=== PATIENT | female | born 1940 | race Caucasian/White ===

== ENCOUNTER 2019-05-08 06:12 | Inpatient (IN) | payer MEDICARE, OTHER, SELFPAY | END 2019-05-10 15:20 | disposition home health service (06) | DRG 190 | PROVIDERS: Admitting Provider Family Medicine; Emergency Provider Emergency Medicine; Family Provider Family Medicine; Visit Provider Internal Medicine | DX: J43.9 Emphysema, unspecified (principal); J96.21 Acute and chronic respiratory failure with hypoxia; R91.8 Other nonspecific abnormal finding of lung field; N18.2 Chronic kidney disease, stage 2 (mild); D64.9 Anemia, unspecified; Z87.891 Personal history of nicotine dependence; F32.9 Major depressive disorder, single episode, unspecified; Z99.81 Dependence on supplemental oxygen; I12.9 Hypertensive chronic kidney disease with stage 1 through stage 4 chronic kidney disease, or unspecified chronic kidney disease; E87.6 Hypokalemia; G89.29 Other chronic pain; M54.9 Dorsalgia, unspecified; F03.90 Unspecified dementia, unspecified severity, without behavioral disturbance, psychotic disturbance, mood disturbance, and anxiety ==

== ENCOUNTER 2019-05-13 08:20 | Day surgery (SDC) | payer MEDICARE, OTHER, SELFPAY | END 2019-05-13 13:32 | disposition home or self-care (01) | PROVIDERS: Family Provider Family Medicine; Visit Provider Internal Medicine Critical Care Medicine | DX: R91.8 Other nonspecific abnormal finding of lung field (principal); Z99.81 Dependence on supplemental oxygen; J43.9 Emphysema, unspecified; N18.2 Chronic kidney disease, stage 2 (mild); F03.90 Unspecified dementia, unspecified severity, without behavioral disturbance, psychotic disturbance, mood disturbance, and anxiety; Z82.49 Family history of ischemic heart disease and other diseases of the circulatory system; Z87.891 Personal history of nicotine dependence | CPT/HCPCS: 31624; 87070; 87102; 87116; 87205; 87206 ×2; 87278; 88112; 88173 ×3; 88305 ×5; 88341; 88342; 94660; J0171; J2001; J2405; J2704; J2710; J3010; J3490 ==

== ENCOUNTER 2019-07-05 09:42 | Day surgery (SDC) | payer MEDICARE, SELFPAY ==
[2019-07-05] VITALS (7 sets, daily range): BP systolic 108–133; BP diastolic 60–99; PULSE 82–95; RESP 15–187; TEMP 36.5–36.6; O2SAT 95–100; BMI 25.4
[2019-07-05] MEDS: sodium chloride 0.9% 1,000 ML 30 ML IV (10:25)
--- NOTE | 2019-07-05 10:37 | ANES.PREANE2 ---
Pre-Anesthetic Assessment Pre-Anesthetic Assessment: Height/Weight: Height 1.65 m Weight 69.4 kg Temp Pulse Resp BP Pulse Ox 97.7 F 82 187 H 127/73 96 07/05/19 10:10 07/05/19 10:10 07/05/19 10:10 07/05/19 10:10 07/05/19 10:10 Proposed Procedure: Operation Date: 07/05/19 12:00 Proposed Procedures p Navigational Bronchoscopy [id number]/R91.8(Not Applicable) - Bipmartín Bean MD Last intake: Intake Last Liquid Date 07/04/19 Last Liquid Time 17:00 Last Solid Date 07/04/19 Last Solid Time 17:00 Exam: Pre-Anes Outpt Exam: alert, oriented x 3, clear to auscultation bilaterally (wheezy) and regular rate & rhythm Airway: Submandibular: WNL Cervical ROM: WNL MP: 2 Dentition: Full History/ROS: No significant history except as noted Pulmonary: Pulmonary: COPD, MCKNIGHT and SOB CV/HEM: CV/HEM: HTN : : None reported Hepatic: Hepatic: None reported GI: GI: GERD Metabolic: Metabolic: None reported Musc/skel: Musc/skel: Lower Back Pain and OA/DJD Neuropsych: Neuropsych: Anxiety and Depression Anesthetic Plan: ASA status: 4 Anesthesia: Anesthesia Evaluation and General Risk of > 500 ml blood loss (7ml/kg in children): No Meds/Allergies Current Medications: Current Medications Generic Name Dose Route Start Last Admin Trade Name Freq PRN Reason Stop Dose Admin Sodium Chloride 1,000 mls @ 30 ml s/hr 07/05/19 10:15 07/05/19 10:25 Sodium Chloride 0.9% IV 07/06/19 10:14 30 mls/hr .Q24H [place] Administration PFSH Anesthesia PFSH: Medical History Chronic back pain CKD (chronic kidney disease), stage II COPD (chronic obstructive pulmonary disease) Dementia Depression DJD (degenerative joint disease) of cervical spine Essential (primary) hypertension Surgical History H/O tubal ligation History of appendectomy History of cholecystectomy History of ERCP History of surgical procedure on eye proper using laser Family History Other Cancer Diabetes Hypertension Psychiatric illness Social History Smoking and tobacco status: former smoker Quit status (tobacco): has quit using tobacco Year quit tobacco: 2016 Alcohol intake: current Alcohol intake frequency: few times a month Alcohol type: wine Household members: children Marital status: / History of recent travel: No Current gender identity: Female Data Anesthesia Cardiac Studies: No Data to Display
--- NOTE | 2019-07-05 12:24 | W.PM.OPSUD ---
Surgery/Procedure H&P Update DATE OF PROCEDURE: July 05, 2019 DATE H&P PERFORMED: 07/05/19 H&P UPDATE INFORMATION: H&P completed within last 30 days CHANGES TO PREVIOUS DOCUMENTATION: No change since the last office visit. PREOP DIAGNOSIS: Left upper lobe lung mass suspicion for lung malignancy. PRIMARY INDICATION FOR PROCEDURE: Same PLANNED PROCEDURE: Bronchoscopy with inspection of the airway, possible endobronchial biopsy, endobronchial sound guided transbronchial needle aspiration of lymph nodes and navigational bronchoscopy guided transbronchial needle aspiration, forcep biopsies, Cytobrush and control of bleeding, possible transthoracic needle aspiration Operation Date: 07/05/19 12:00 Proposed Procedures p Navigational Bronchoscopy [id number]/R91.8(Not Applicable) - Bipmartín Bean MD
[2019-07-05] MEDS: lidocaine 1% INJ 20 mL XX (12:46)
--- NOTE | 2019-07-05 13:38 | SUR.PHASEI ---
1334 PATIENT TO PACU AT THIS TIME. NO DISTRESS. PATIENT ON SIMPLE MASK AT 8L, SPO2 98%. RR EVEN AND UNLABORED. DENIES PAIN. RESPONDS TO VERBAL STIMULI.
--- NOTE | 2019-07-05 13:41 | PM.OP ---
Operative Report Date of procedure: July 05, 2019 Pre-op Diagnosis: Left upper lobe lung mass suspicion for lung malignancy. Post-op diagnosis: same Procedure: Name of the procedure: Bronchoscopy with inspection of the airway, bronchoalveolar lavage, transbronchial needle biopsies, Cytobrush and transbronchial needle aspiration under navigational bronchoscopy guidance. Indication: Left upper lobe lung mass Anesthesia: General anesthesia. Local anesthesia: The nico in the right and left mainstem bronchi were anesthetized with 1% lidocaine, 3 mL. Description of the procedure: The procedure was explained to the patient and the consent was obtained. The patient was brought to the OR. The patient underwent endotracheal intubation for general anesthesia. Following induction of general anesthesia, the bronchoscope was advanced through the ET tube. The lower trachea appeared to be normal, no endotracheal lesion was seen. The nico was sharp. The nico, the right and left mainstem bronchi are anesthetized with 1% lidocaine. In a systematic manner bilateral bronchial tree was then examined. The bronchoscope was advanced into the left mainstem bronchus. The left upper lobe, lingula and left lower lobe bronchi were examined up to the third subsegmental level and no abnormalities were identified. There is no endobronchial lesion, active bleeding or mucous plug. The bronchoscope was then introduced into the right mainstem bronchus. The right upper lobe, right middle lobe and right lower lobe bronchi were examined up to the third subsegmental level and no abnormalities were identified. Using navigational bronchoscopy the left upper lobe lung mass was accessed through the posterior segment of the left upper lobe. Transbronchial biopsies were taken. 5 biopsies are taken. Cytobrush was performed. Transbronchial needle aspiration of the mass was performed as well. Bronchoalveolar lavage was performed from the posterior segment of the left upper lobe 60 mL of saline was instilled, fluid return was 15 mL. The fluid was bloody. Samples: 1. Bronchoalveolar lavage specimen was sent for cytology. 2. The transbronchial biopsies are sent for histopathology. 3. The transbronchial needle aspirations were sent for cytology. 4. Cytobrush specimen was sent for cytology. Complications: There was no immediate complications.
--- NOTE | 2019-07-05 13:49 | SUR.PHASEI ---
1342 PATIENT PLACED ON O2 AT 3L NC. PATIENT HAD OWN O2 TUBING FROM HOME.
--- NOTE | 2019-07-05 14:05 | SUR.PHASEI ---
1401 TO OPS AT THIS TIME. PATIENT DENIES PAIN. RR EVEN AND UNLABORED. TOLERATING ICE CHIPS.
== END 2019-07-05 14:31 | disposition home or self-care (01) ==
PROVIDERS: Internal Medicine Critical Care Medicine; Family Provider Family Medicine; PCP Family Medicine; Visit Provider Pathology Anatomic Pathology & Clinical Pathology
PROC: 0BJ08ZZ Inspection of Tracheobronchial Tree, Via Natural or Artificial Opening Endoscopic (ICD-10-PCS; CPT 31622; principal; 2019-07-05 12:00)
DX: C34.12 Malignant neoplasm of upper lobe, left bronchus or lung (principal); K21.9 Gastro-esophageal reflux disease without esophagitis; M19.90 Unspecified osteoarthritis, unspecified site; I12.9 Hypertensive chronic kidney disease with stage 1 through stage 4 chronic kidney disease, or unspecified chronic kidney disease; N18.2 Chronic kidney disease, stage 2 (mild); J44.9 Chronic obstructive pulmonary disease, unspecified; F03.90 Unspecified dementia, unspecified severity, without behavioral disturbance, psychotic disturbance, mood disturbance, and anxiety; Z82.49 Family history of ischemic heart disease and other diseases of the circulatory system; Z83.3 Family history of diabetes mellitus; Z87.891 Personal history of nicotine dependence
CPT/HCPCS: 31624; 31625; 31645; 12345; 71250; 88112; 88173; 88305; 96372; J1100; J2001; J2704; J3010; J7030

== ENCOUNTER 2019-07-11 09:01 | Outpatient (CLI) | payer MEDICARE, SELFPAY ==
[2019-07-11 13:18] LABS: Basophils # 0.1 10^3/uL (0.0-0.1); Basophils % 0.6 %; Eosinophils # 0.2 10^3/uL (0.0-0.8); Hematocrit 39.6 % (37.0-47.0); Hemoglobin 12.3 g/dL (11.5-15.3); Lymphocytes # 1.5 10^3/uL (0.8-4.8); Mean Corpuscular HGB Conc 31.1 g/dL (30.0-36.0); Mean Corpuscular Hemoglobin 27.7 pg (28.0-34.0); Mean Corpuscular Volume 89.2 fL (81-99); Mean Platelet Volume 10.1 fL (7.4-10.4); Monocytes # 0.9 10^3/uL (0.2-0.9); Monocytes % 5.4 %; Neutrophils # 14.3 10^3/uL (1.8-7.7); Neutrophils % 83.6 %; Nucleated Red Blood Cells % 0 %; Platelet Count 426 10^3/cmm (130-400); Red Blood Count 4.44 10^6/uL (4.1-5.3); Red Cell Distribution Width 13.9 % (12.1-15.1); White Blood Count 17.1 10^3/uL (4.0-10.0)
[2019-07-11 13:30] LABS: Alanine Aminotransferase 16 U/L (0-33); Albumin Level 3.4 g/dL (3.5-5.2); Alkaline Phosphatase 110 IU/L (35-105); Anion Gap 16.1 (5-19); Aspartate Amino Transferase 23 U/L (0-32); Blood Urea Nitrogen 9 mg/dL (8-23); Carbon Dioxide 29 mmol/L (22-29); Chloride 96 mmol/L (98-107); Globulin 4.4 g/dL (1.3-4.6); Glucose 125 mg/dL (65-115); Potassium 3.1 mmol/L (3.5-5.1); Sodium 138 mmol/L (136-145); Total Bilirubin 0.9 mg/dL (0.15-1.2); Total Protein 7.8 g/dL (6.6-8.7)
--- NOTE | 2019-07-12 13:44 | N.ONRAD NP_ITS ---
Radiation Oncology New Patient Visit Patient: Ora De Leon MR#: [id number] : 1940> Age: 78> Sex: Female> Dictated by: Dr. Oliver Guzman Date of Service: 07/11/2019 Referring Physician(s): Riya Crump Primary Diagnosis: C34.12 - malignant neoplasm of upper lobe, left bronchus or lung, Diagnosed 05/26/2019 (active). Chief complaint: Left lung cancer History of Present Illness: This is a 78-year-old female with a history of COPD who presented to the hospital with worsening cough, shortness of breath for about 2 weeks. She had a chest x-ray which showed a left upper lobe lung mass. Subsequently she underwent a CT angiogram of the chest on May 08, 2019. It revealed a left upper lobe pulmonary mass measuring 5.7 x 5.1 x 5.2 cm narrowing the left upper lobe apical posterior segmental bronchus. The patient underwent a bronchoscopy and endobronchial ultrasound-guided transbronchial needle aspiration of the lymph nodes but no definitive diagnosis of malignancy was made. Pathology of a left upper lobe endobronchial biopsy on May 13, 2019 showed at least squamous cell carcinoma in situ with focal areas suspicious for invasive carcinoma. The patient underwent a PET/CT for staging in [place], [place] On June 28, 2019. I do not have the images for review. However according to the report, there is a mass within the left upper lobe measuring 6.6 cm with max SUV of 29. Along the superior margin there was some additional nodularities with slight increased metabolic activity which may represent satellite lesions or adjacent inflammation/infection. A pretracheal lymph node is enlarged with a max SUV of 3.1. Aorticopulmonary window lymph node has a max SUV of 3.1 and measures 1.3 cm in short axis. There is no evidence of distant metastasis. The patient complains of cough and shortness of breath but denies chest pain, hemoptysis or wheezing. She complains of morning headaches, dizziness and nausea but denies vomiting, vision change, focal neurological deficits, bone pain or abdominal pain. She complains of moderate fatigue, poor appetite and a significant weight loss of 15 pounds in 2 months. Current Medications: Desvenlafaxine ER, hydroCHLOROthiazide, montelukast Sodium, omeprazole, trelegy Ellipta, vESIcare. Allergies: Codeine Sulfate. Medical History: - Chronic back pain, - chronic kidney disease (stage II) , - chronic obstructive pulmonary disease, - degenerative joint disease, - dementia, - depression, - hypertension. No history of collagen vascular disease. No previous radiation therapy. Surgical History: Appendectomy, bronchoscopy, cholecystectomy, ercp, laser eye surgery and tubal ligation. Family History: Father is at age 98. Mother is at age 95. Brother is at age 64 having experienced lung cancer, and brain cancer. Sister is at age 78. Social History: Last screened on 07/11/2019 - Yes - but has quit for 4 years. Smoked 1.5 packs/day for 59 years (88.5 pack years). Last screened on 07/11/2019 - Drinks occasionally. Review of Systems: Constitutional - Complains of lack of appetite off and on. Complains of moderate fatigue. Complains of change in weight has lost about 15 lbs. since April 2019. Denies fever and night sweats. Eyes - Complains of blurred vision in both eyes. Denies double vision. ENMT - Complains of mouth dryness off and on and altered taste occasionally. Denies dysphagia, ear pain and stomatitis. Neck - Denies neck pain. Integumentary - Complains of dry skin. Denies rash. Breasts - Denies pain. Cardiovascular - Denies arrhythmias, chest pain and edema. Respiratory - Complains of cough and dyspnea on 3 L 02 NC. Denies hemoptysis and wheezing. Gastrointestinal - Complains of occasional constipation. Complains of heartburn / dyspepsia. Complains of nausea. Denies abdominal pain, diarrhea, melena / GI bleeding and vomiting. Genitourinary (F) - Complains of occasional incontinence. Complains of nocturia 1-3 time/night. Denies dysuria, frequency, urgency, vaginal discharge / bleeding and vaginal spotting. Musculoskeletal - Complains of arthritis. Complains of joint pain. Complains of generalized muscle weakness. Denies bone pain. Neurologic - Complains of frequent dizziness that occurs with activity and which she says she has vertigo. Complains of abnormal gait walks with a walker. Complains of headaches in which she wakes up with one almost everyday and gets one right before bed. This has been going on for about a year. Endocrine - Denies diabetes and thyroid disease. Hematologic/Lymphatic - Denies tender or enlarged lymph nodes.. Vital Signs: Performed on 07/11/2019 10:09 AM Height - 65.00 in, Weight - 149.0 lbs (high), BSA - 1.75 sq.m, BMI - 24.80, Temperature - 98.7 f, Pulse - 87 /min, Respiration - 24 /min, O2 Sat - 93 % (low), Pain - 10 and BP - 124/ 71 mm(hg). Physical Exam: Pertinent to diagnosis and treatment. General: Alert and oriented x 3. No acute distress. HEENT: Normocephalic, atraumatic. EOMI ( Extraocular Movements Intact), PERRLA ( Pupils Equal, Round, Reactive to Light and Accommodation), Sclerae anicteric. Oral cavity is clear without lesions, masses or ulcers. NECK: Supple without supraclavicular or jugular lymphadenopathy. LUNGS: Decreased breath sound to auscultation bilaterally without rales, rhonchi or wheeze. HEART: Regular rate and rhythm, normal S1 and S2 without murmur, gallop or rub. MUSCULOSKELETAL: No tenderness or percussion pain over the axial skeleton, scapulae or pelvis. ABDOMEN: Soft, nontender, nondistended without masses or organomegaly. Bowel sounds are present. EXTREMITIES: No peripheral edema is identified. Limited motor and sensory examination are grossly intact and symmetric bilaterally. NEUROLOGIC: Cranial nerves II ???XII are grossly intact. Normal sensation, strength 5/5 in all extremities, normal gait, no ataxia. Performance Status: 3 - Capable of only limited self-care, confined to bed or chair more than 50% of waking hours. 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 Plan: I recommended a MRI of the brain to complete staging work-up We will obtain the images and report of PET/CT from [facility]. Once she is confirmed to have a locally advanced left lung cancer, we will recommend concurrent chemoradiation therapy. She has already seen Dr. Crump and discussed about chemotherapy and will have port placement. I went over the procedure for radiation therapy to the chest with the patient. The benefit, risks and potential side effects of radiotherapy to the chest were explained to the patient. The potential side effects include but not limited to fatigue, skin reaction, radiation pneumonitis, esophagitis with odynophagia/dysphagia, damages to the heart/vessels, esophagus, brachial plexus and spinal cord. Ms De Leon and her family expressed good understanding and decided to proceed with the recommended treatment. The patient???s daughter/power of workers compensation attorney has signed an informed consent for radiotherapy. She will be scheduled for CT simulation. Signed by: 07/12/2019 1:42:20 PM <<Signature on File>> CPT Code: CPT Code: Signed By: Dr. Oliver Guzman, 07/12/2019 1:42:21 PM <<Signature on File>>
--- NOTE | 2019-07-12 17:39 | ONC CON_ITS ---
Dr. Crump New Patient Note Patient: Ora De Leon Unit #: [id number]: 1940 Dicatated By: Riya Crump M.D.Date of Visit: Jul 11, 2019 Onc MED New Patient/Consult Referring Physician: Dr. ADONIS FISH M.D. History of Present Illness: Mrs Ora De Leon, is a 78-year-old female with a history of abnormal chest x-ray which showed left upper lobe lung mass confirmed with CT scan of chest subsequently on 07/05/2019 underwent bronchoscopy and endobronchial ultrasound-guided transbronchial needle aspiration of lymph nodes, biopsy confirmed moderately differentiated squamous cell carcinoma, but there was no endobronchial lesion seen . And lymph node aspiration showed benign lymph nodes and cytology from bronchoalveolar lavage and Cytobrush were negative too. Patient denies any history of hemoptysis or hematemesis, denies any history of headaches blurred vision double vision as per patient she underwent CT PET scan on 06/28/2019 [facility] which showed large metabolic active mass within left upper lobe, mild adjacent nodularity in the left lung may reflect some satellite lesion or inflammation. Mildly enlarged mediastinal lymph nodes with some increase in metabolic activity could represent early metastatic disease. Wedge compression of T12 vertebral body of indeterminate age. Due to poor pulmonary reserve, patient is on home oxygen she was considered not to be a candidate for surgical resection. Patient denies any fever chills, denies any jaundice, denies any new bony pain but chronic mid back pain. Next Patient has history of chronic renal disease, COPD, dementia, essential hypertension Patient quit smoking long time back Past Medical History: Ms. De Leon's medical history consists of chronic back pain, chronic kidney disease (stage II), chronic obstructive pulmonary disease, degenerative joint disease, dementia, depression, and hypertension. Past Surgical History: Ms. De Leon's surgical/procedural history consists of appendectomy, bronchoscopy, cholecystectomy, ercp, laser eye surgery, and tubal ligation. Medications: Desvenlafaxine ER 1 Tablet (of 50 mg) Tablet SR 24 HR Oral daily, hydroCHLOROthiazide 1 Tablet (of 12.5 mg) Oral daily, Montelukast Sodium 1 Tablet (of 10 mg) Oral daily, Omeprazole 1 Capsule (of 20 mg) Capsule Delayed Release Oral daily, Trelegy Ellipta 1 Puff(s) (of 100-62.5-25 mcg/inh) Aerosol Powder, Breath Activated Inhalation PRN, VESIcare 1 Tablet (of 10 mg) Oral daily Allergies: Codeine Sulfate Social History: Ms. De Leon is . Ms. De Leon quit smoking 4 years ago but had smoked 1.5 packs/day for 59 years. She drinks occasionally. pt states once every 2 months a glass of wine. Family History: Ms. De Leon's mother at age 95. Ms. De Leon's father at age 98. Ms. De Leon has 1 brother who is : lung cancer, and brain cancer. She has 1 sister who is . Review Of Symptoms: Constitutional - Complains of lack of appetite off and on. Complains of moderate fatigue. Complains of change in weight has lost about 15 lbs. since April 2019. Denies fever and night sweats, Eyes - Complains of blurred vision in both eyes. Denies double vision, ENMT - Complains of mouth dryness off and on and altered taste occasionally. Denies dysphagia, ear pain and stomatitis, Neck - Denies neck pain, Integumentary - Complains of dry skin. Denies rash, Breasts - Denies pain, Cardiovascular - Denies arrhythmias, chest pain and edema, Respiratory - Complains of cough and dyspnea on 3 L 02 NC. Denies hemoptysis and wheezing, Gastrointestinal - Complains of occasional constipation. Complains of heartburn / dyspepsia. Complains of nausea. Denies abdominal pain, diarrhea, melena / GI bleeding and vomiting, Genitourinary (F) - Complains of occasional incontinence. Complains of nocturia 1-3 time/night. Denies dysuria, frequency, urgency, vaginal discharge / bleeding and vaginal spotting, Musculoskeletal - Complains of arthritis. Complains of joint pain. Complains of generalized muscle weakness. Denies bone pain, Neurologic - Complains of frequent dizziness that occurs with activity and which she says she has vertigo. Complains of abnormal gait walks with a walker. Complains of headaches in which she wakes up with one almost everyday and gets one right before bed. This has been going on for about a year., Endocrine - Denies diabetes and thyroid disease, Hematologic/Lymphatic - Denies tender or enlarged lymph nodes. Vital Signs: Performed on Jul 11, 2019 10:09: 10, 24.80, 1.75 sq.m, 65.00 in, 93 % (LOW), 87 /min, 24 /min, 124/71 mm(hg), 98.7 F, and 149.0 lbs (HIGH). Performance Status: 1 - No physically strenuous activity, but ambulatory and able to carry out light or sedentary work (e.g. office work, light house work). (ECOG) Physical Examination: ENMT - No oral exudates, ulcers, masses, thrush or mucositis. Oropharynx clear. Tongue normal, Respiratory - poor air entry, Cardiovascular - Regular rate and rhythm of heart, Abdomen - Non-tender, non-distended, no masses,. Good bowel sounds. No guarding or rebound tenderness. No pulsatile masses, Extremities - no edema. Lab/Imaging: Most recent lab results are not available for this patient. 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 Wedge compression of T12 vertebral body of indeterminate age. Clinical stage cT3 or T4 (metabolically active adjacent to the primary nodules in ipsilateral lobe), N0 stage IIIa COPD, on home oxygen Dementia Essential hypertension Plan: Discussed with patient and family regarding her disease status and treatment options, considering patient's poor pulmonary reserve, she is not a candidate for surgical resection , so role of combined chemoradiation was discussed in detail, at this point we'll consider weekly carboplatin Taxol concurrent radiation therapy, if tolerated well we'll discuss about 2 cycles of full dose carboplatin/Taxol followed by maintenance therapy with durvalumab for 12 months All the side effect possible benefits associated with weekly carbo and Taxol concurrent with radiation therapy were discussed in detail including but not limited to bone marrow suppression, allergic reaction especially to Taxol, steroid-induced hyperglycemia, peripheral neuropathy, nausea vomiting were mentioned further teaching will done by chemotherapy nurse. Planning to give her carboplatin AUC 2 Taxol 45-50 mg/m??? weekly concurrent with radiation therapy. We will consider Port-A-Cath placement to facilitate the treatment and we'll see her back 1 week after combined chemotherapy/radiation is initiated with CBC CMP. Signed By: Riya Crump M.D. <<Signature on File>>
== END 2019-07-11 09:02 | disposition home or self-care (01) ==
LOC: ONCMED 09:01
PROVIDERS: Family Provider Family Medicine; PCP Family Medicine; Referring Provider Internal Medicine Critical Care Medicine; Visit Provider Internal Medicine Hematology & Oncology
DX: C34.12 Malignant neoplasm of upper lobe, left bronchus or lung (principal); G89.29 Other chronic pain; M54.89 Other dorsalgia; I12.9 Hypertensive chronic kidney disease with stage 1 through stage 4 chronic kidney disease, or unspecified chronic kidney disease; N18.2 Chronic kidney disease, stage 2 (mild); J44.9 Chronic obstructive pulmonary disease, unspecified; F03.90 Unspecified dementia, unspecified severity, without behavioral disturbance, psychotic disturbance, mood disturbance, and anxiety; M19.90 Unspecified osteoarthritis, unspecified site; F32.9 Major depressive disorder, single episode, unspecified; Z99.81 Dependence on supplemental oxygen; Z79.899 Other long term (current) drug therapy
CPT/HCPCS: 36415; 80053; 85025; 99203; 99205

== ENCOUNTER 2019-07-18 06:26 | Outpatient (RCR) | payer MEDICARE, SELFPAY ==
--- NOTE | 2019-07-18 | CT_ITS ---
Radation Therapy Planning CT images; total exam DLP:1802.59 mGy-cm MTDD
== END 2019-07-18 23:59 | disposition home or self-care (01) ==
LOC: ONCMED 06:26
PROVIDERS: Family Provider Family Medicine; PCP Family Medicine; Visit Provider Radiology Radiation Oncology
DX: C34.12 Malignant neoplasm of upper lobe, left bronchus or lung (principal)
CPT/HCPCS: 77290; 77300; 77301; 77334; 77338; 77470; Q9967

== ENCOUNTER 2019-07-21 06:22 | Day surgery (SDC) | payer MEDICARE, SELFPAY ==
[2019-07-20 14:14] VITALS: BMI 23.8
--- NOTE | 2019-07-21 | SCC_ITS ---
Procedure Done: Port-A-Cath placement into the right subclavian vein with intraoperative fluoroscopy interpretation. 1.8 seconds of fluoroscopic guidance, for a cumulative dose of 0.09 mGy, was provided to Dr. Cantrell by the radiology department. C-arm images of the chest were saved for the patient's permanent record. FER
[2019-07-21 07:04] VITALS: BP 118/66; PULSE 100; RESP 18; TEMP 37.4; O2SAT 93
[2019-07-21] MEDS: sodium chloride 0.9% 1,000 ML 30 ML IV (07:19)
--- NOTE | 2019-07-21 07:35 | ANES.PREANE2 ---
Pre-Anesthetic Assessment Pre-Anesthetic Assessment: Height/Weight: Height 1.65 m Weight 64.864 kg Temp Pulse Resp BP Pulse Ox 99.4 F 100 18 118/66 93 07/21/19 07:04 07/21/19 07:04 07/21/19 07:04 07/21/19 07:04 07/21/19 07:04 Preop Diagnosis: Left upper lobe lung mass suspicion for lung malignancy. Proposed Procedure: Operation Date: 07/21/19 08:30 Proposed Procedures p Portacath Placement(Not Applicable) - Bryce Cantrell MD Last intake: Intake Last Liquid Date 07/20/19 Last Liquid Time 18:00 Last Solid Date 07/20/19 Last Solid Time 18:00 Social: Social History: Tobacco Packs per day: 1 Pack years: 50 Comment: quit 4y Exam: Pre-Anes Outpt Exam: alert, oriented x 3, clear to auscultation bilaterally and regular rate & rhythm Airway: Submandibular: WNL Cervical ROM: WNL MP: 2 Dentition: False Pulmonary: Pulmonary: COPD, MCKNIGHT and SOB Comments: home 02 x 12 3lpm Musc/skel: Musc/skel: Lower Back Pain Neuropsych: Neuropsych: FIGUEROA Anesthetic Plan: ASA status: 3 Anesthesia: MAC Meds/Allergies Current Medications: Current Medications Generic Name Dose Route Start Last Admin Trade Name Freq PRN Reason Stop Dose Admin Sodium Chloride 1,000 mls @ 30 ml s/hr 07/21/19 06:45 07/21/19 07:19 Sodium Chloride 0.9% IV 07/22/19 06:44 30 mls/hr .Q24H [place] Administration PFSH Anesthesia PFSH: Social History Smoking and tobacco status: former smoker Quit status (tobacco): has quit using tobacco Year quit tobacco: 2016 Alcohol intake: current Alcohol intake frequency: few times a month Alcohol type: wine Household members: children Marital status: / History of recent travel: No Current gender identity: Female Data Anesthesia Cardiac Studies: No Data to Display
--- NOTE | 2019-07-21 08:30 | SC_ITS ---
WS: [id number] C-arm FL for CVA [id number] REASON FOR EXAM: port placement FINDINGS: C-arm placement for Mediport. The Mediport extends from the right side the tip is in good p osition. Within the lumen. SC/C-arm FL for CVA [id number] IMPRESSION: Insertion of a Mediport the right side.
--- NOTE | 2019-07-21 08:44 | W.PM.OPSUD ---
Surgery/Procedure H&P Update DATE OF PROCEDURE: July 21, 2019 DATE H&P PERFORMED: 07/19/19 PREOP DIAGNOSIS: Left upper lobe lung mass suspicion for lung malignancy. PLANNED PROCEDURE: Operation Date: 07/21/19 08:30 Proposed Procedures p Portacath Placement(Not Applicable) - Bryce Cantrell MD
[2019-07-21] MEDS: heparin,porcine 1,000 unit/mL INJ 1 mL 2000 UNIT IRRIGATION (09:05)
--- NOTE | 2019-07-21 09:19 | PM.OP ---
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 Post-op diagnosis: same Procedure Done: Port-A-Cath placement into the right subclavian vein with intraoperative fluoroscopy interpretation. Pathology: none sent Surgeon: Bryce Cantrell Anesthesia: MAC Estimated blood loss (mL): 5 Complications: None. Condition: stable Disposition: same day Procedure: The patient was brought to the Operating Room and was placed in a supine position on the operating room table. A monitored anesthetic was induced. The shoulders were extended by means of a posterior shoulder roll. The anterior surface of the chest and neck were prepped and draped in a sterile fashion. 1% lidocaine was used to anesthetize a small area underneath the right clavicle. The subclavian vein was accessed on the first pass with a needle and syringe as evidenced by the return of dark nonpulsatile blood. The J-wire was passed down the needle and the needle was removed. The C-arm was positioned and showed the wire extending down the vena cava. A site just inferiorly on the chest wall was anesthetized using a combination of 1% lidocaine and 0.5% bupivacaine with 1:200,000 parts of epinephrine. A transverse incision was made and an inferior pocket was created in the subcutaneous layer using cautery in preparation for port placement. The Port-A-Cath tubing was passed from the incision through the subcutaneous layer to the exit point of the J-wire. The tubing was attached to the port and was cut to an appropriate length. The introducer and sheath were passed over the J-wire, and the introducer and J-wire were removed. The Port-A-Cath tubing was passed down the sheath, which was torn away. The C-arm was positioned and showed good placement of the Port-A-Cath tubing tip in the superior vena cava. The port aspirated easily and flushed well with hep flush solution. The port was sewn in place with some interrupted sutures of 3-0 PDS. The transverse incision was closed at the dermis using a single inverted suture of 3-0 Vicryl and the skin was approximated using a running subcuticular suture of 4-0 Vicryl. The small incision under the clavicle at the previous insertion site of the J wire was closed using a single inverted suture of 4-0 Vicryl. Benzoin and Steri-Strips were placed over the incisions and a sterile bandage followed. The patient was taken to the recovery area in stable condition postoperatively. INTRAOPERATIVE FLUOROSCOPY interpretation: FINDINGS: Intraoperative fluoroscopic images of a Port-A-Cath placement were reviewed. An initial image reveals a J-wire entering the right subclavian vein and extending down the vena cava. Subsequent images reveal a Port-A-Cath on that side of the chest with its tubing tip in good location in the superior vena cava. No obvious pneumothorax is identified.
[2019-07-21 09:25] VITALS: BP 137/69; PULSE 99; RESP 20; TEMP 36.9; O2SAT 94
[2019-07-21 10:10] VITALS: BP 136/92; PULSE 77; RESP 20; TEMP 36.9; O2SAT 95
== END 2019-07-21 10:38 | disposition home or self-care (01) ==
PROVIDERS: Family Provider Family Medicine; PCP Family Medicine; Visit Provider Surgery
PROC: (CPT 36561; principal; 2019-07-21 08:30)
DX: C34.12 Malignant neoplasm of upper lobe, left bronchus or lung (principal); F03.90 Unspecified dementia, unspecified severity, without behavioral disturbance, psychotic disturbance, mood disturbance, and anxiety; M19.90 Unspecified osteoarthritis, unspecified site; J43.9 Emphysema, unspecified; K21.9 Gastro-esophageal reflux disease without esophagitis; Z87.891 Personal history of nicotine dependence; Z82.3 Family history of stroke; Z82.49 Family history of ischemic heart disease and other diseases of the circulatory system; Z83.3 Family history of diabetes mellitus
CPT/HCPCS: 36561; 12345; 70553; 77001; A9579; C1788; J0690; J1644; J2001; J2704; J3010; J3490; J7030

== ENCOUNTER 2019-07-21 12:47 | Outpatient (CLI) | payer MEDICARE, SELFPAY ==
--- NOTE | 2019-07-21 12:51 | MR_ITS ---
WS: [id number] MRI BRAIN WITH AND WITHOUT CONTRAST HISTORY: LUNG Cancer; initial STAGING COMPARISON: CT head 08/30/2012 TECHNIQUE: Multiplanar imaging performed through the brain with Prohance 13 ml's IV. Quality of the examination is limited by motion artifact. No acute infarcts are seen. Kathleen-white matter differentiation is well preserved. There is mild atroph y and mild periventricular small vessel ischemic disease. No midline shift. No susceptibility artifacts or prior lacunar infarcts. Ventricles and extra-axial spaces are normal. Pituitary gland is poorly visualized. There is a well-rounded cystic mass measuring 10 x 10 mm in the posterior nasopharynx, centered just to the RIGHT of midline consistent with a Tornwaldt cyst. Visualized posterior fossa and brainstem are also normal. Postcontrast images are negative for masses or vascular malformations. Dural venous sinuses are normal. Paranasal sinuses: Well aerated with no significant disease. Mastoid air cells: Moderate RIGHT mastoid air cell effusion. Calvarium and scalp: Normal. MR/MR head wo/w con [id number] IMPRESSION: 1. Study is limited by motion artifact. 2. No metastatic disease identified. Small enhancing lesions would easily be o bscured with this amount of motion. 3. RIGHT nasopharyngeal Tornwaldt cyst. 4. RIGHT mastoid effusion. 5. Mild chronic microvascular ischemic disease.
== END 2019-07-21 12:48 | disposition home or self-care (01) ==
LOC: ONCMED 12:49
PROVIDERS: Family Provider Family Medicine; PCP Family Medicine; Visit Provider Radiology Radiation Oncology
DX: C34.12 Malignant neoplasm of upper lobe, left bronchus or lung (principal)
CPT/HCPCS: 70553; A9579

== ENCOUNTER 2019-08-05 05:53 | Outpatient (RCR) | payer MEDICARE, SELFPAY ==
[2019-07-25 10:17] LABS: Basophils # 0.1 10^3/uL (0.0-0.1); Basophils % 0.4 %; Eosinophils # 0.2 10^3/uL (0.0-0.8); Eosinophils % 1.1 %; Hematocrit 35.5 % (37.0-47.0); Lymphocytes # 1.1 10^3/uL (0.8-4.8); Lymphocytes % 7.5 %; Mean Corpuscular Hemoglobin 27.4 pg (28.0-34.0); Mean Corpuscular Volume 88.3 fL (81-99); Mean Platelet Volume 9.3 fL (7.4-10.4); Monocytes # 0.7 10^3/uL (0.2-0.9); Monocytes % 4.6 %; Neutrophils # 12.9 10^3/uL (1.8-7.7); Neutrophils % 85.9 %; Nucleated Red Blood Cells % 0 %; Platelet Count 371 10^3/cmm (130-400); Red Blood Count 4.02 10^6/uL (4.1-5.3); Red Cell Distribution Width 14.1 % (12.1-15.1)
[2019-07-25 10:31] LABS: Alanine Aminotransferase < 5 U/L (0-33); Albumin Level 2.9 g/dL (3.5-5.2); Alkaline Phosphatase 83 IU/L (35-105); Anion Gap 13.1 (5-19); Aspartate Amino Transferase 18 U/L (0-32); Blood Urea Nitrogen 7 mg/dL (8-23); Calcium 9.4 mg/dL (8.5-10.5); Carbon Dioxide 31 mmol/L (22-29); Chloride 95 mmol/L (98-107); Globulin 5.1 g/dL (1.3-4.6); Glucose 158 mg/dL (65-115); Osmolality Calculated 281 mOsm/kg (285-295); Potassium 3.1 mmol/L (3.5-5.1); Sodium 136 mmol/L (136-145); Total Bilirubin 0.5 mg/dL (0.15-1.2)
[2019-07-26] MEDS: sodium chloride 0.9% 250 ML 75 ML IV (13:46)
[2019-07-26] MEDS: acetaminophen 325 mg Tablet 650 MG PO (16:15)
--- NOTE | 2019-07-27 16:02 | ONCRAD TMN_ITS ---
Radiation Oncology Weekly Treatment Management Patient: Ora De Leon MR#: [id number] : 1940> Age: 78> Sex: Female Dictated by: Dr. Fritz Nelson Date of Service: 07/27/2019 Referring Physician(s) : Riya Crump M.D. Primary Diagnosis: C34.12 - Malignant neoplasm of upper lobe, left bronchus or lung, Diagnosed 05/26/2019 (Active) Radiotherapy to date: Course: LT Lung 2019, Treatment Site: LT Lung 46, Ref. ID: [id number]: 6X, Dose/Fx (cGy): 200, #Fx: , Dose Correction (cGy): 0, Total Dose (cGy): 600, Start Date: 07/25/2019, Elapsed Days: 2 Current Complaints/Interval History: No significant complaints, other than shortness of breath.. Current Medications: CARBOplatin, desvenlafaxine ER, dexamethasone, dexamethasone Sodium Phosphate, diphenhydrAMINE HCl, famotidine in NaCl, hydroCHLOROthiazide, k-Tab, lORazepam, montelukast Sodium, omeprazole, pACLitaxel, palonosetron HCl, prochlorperazine Maleate, trelegy Ellipta, vESIcare. Allergies: Codeine Sulfate. Vital Signs: Performed on 07/27/2019 3:18 PM Weight - 147.2 lbs, Temperature - 99.5 f, Pulse - 93, Respiration - 24, O2 Sat - 96 %, Pain - 0 and BP - 100/ 45 mm(hg)(/low). Physical Exam: Appears stable, no skin erythema or desquamation. Performance Status: 1 - No physically strenuous activity, but ambulatory and able to carry out light or sedentary work (e.g. office work, light house work). (ECOG) Lab: None pending in Radiation Oncology. Test performed on 07/25/2019 10:00 AM WBC - 15.0 10 3/ul (high), RBC - 4.02 10 6/ul (low), HGB - 11.0 g/dl (low), HCT - 35.5 % (low), MCH - 27.4 pg (low), Neutrophils - 12.9 10 3/ul (high), Potassium - 3.1 mmol/l (low), Chloride - 95 mmol/l (low), CO2 - 31 mmol/l (high), BUN - 7 mg/dl (low), Cr Clearance (Est) - 69.5300 ml/min (low), Glucose - 158 mg/dl (high), Albumin - 2.9 g/dl (low) and Globulin - 5.1 g/dl (high). Imaging: All radiation therapy related imaging (including but not limited to kV, MV, and CBCT generated images) was reviewed. Appropriate changes, if any, were made to assure accurate target localization. Impression/Plan: Tolerating treatment well with expected side effects. Continue treatment as planned. Copy of Brain MRI report given to the patient???s daughter. CPT: 33624 Signed by: Dr. Fritz Nelson>07/27/2019 4:02:13 PM <<Signature on File>>
[2019-08-01 14:52] LABS: Basophils # 0.1 10^3/uL (0.0-0.1); Basophils % 0.9 %; Eosinophils # 0.2 10^3/uL (0.0-0.8); Eosinophils % 2.1 %; Hematocrit 32.5 % (37.0-47.0); Lymphocytes # 0.7 10^3/uL (0.8-4.8); Lymphocytes % 6.9 %; Mean Corpuscular HGB Conc 30.8 g/dL (30.0-36.0); Mean Corpuscular Hemoglobin 28.1 pg (28.0-34.0); Mean Corpuscular Volume 91.3 fL (81-99); Mean Platelet Volume 9.9 fL (7.4-10.4); Monocytes # 0.4 10^3/uL (0.2-0.9); Monocytes % 4.2 %; Neutrophils % 84.6 %; Nucleated Red Blood Cells % 0 %; Platelet Count 305 10^3/cmm (130-400); Red Blood Count 3.56 10^6/uL (4.1-5.3); Red Cell Distribution Width 14.3 % (12.1-15.1); White Blood Count 9.5 10^3/uL (4.0-10.0)
[2019-08-01 15:05] LABS: Alanine Aminotransferase 15 U/L (0-33); Albumin Level 3.1 g/dL (3.5-5.2); Alkaline Phosphatase 82 IU/L (35-105); Anion Gap 10.7 (5-19); Aspartate Amino Transferase 22 U/L (0-32); Blood Urea Nitrogen 12 mg/dL (8-23); Calcium 9.8 mg/dL (8.5-10.5); Carbon Dioxide 33 mmol/L (22-29); Chloride 96 mmol/L (98-107); Globulin 4.4 g/dL (1.3-4.6); Glucose 159 mg/dL (65-115); Osmolality Calculated 281 mOsm/kg (285-295); Potassium 3.7 mmol/L (3.5-5.1); Sodium 136 mmol/L (136-145); Total Bilirubin 0.9 mg/dL (0.15-1.2); Total Protein 7.5 g/dL (6.6-8.7)
--- NOTE | 2019-08-02 15:37 | ONCRAD TMN_ITS ---
Radiation Oncology Weekly Treatment Management Patient: Ora De Leon MR#: [id number] : 1940> Age: 78> Sex: Female Dictated by: Dr. Darrius Urena Date of Service: 08/02/2019 Referring Physician(s) : Riya Crump M.D. Primary Diagnosis: C34.12 - Malignant neoplasm of upper lobe, left bronchus or lung, Diagnosed 05/26/2019 (Active) Radiotherapy to date: Course: LT Lung 2019, Treatment Site: LT Lung 46, Ref. ID: [id number], Energy: 6X, Dose/Fx (cGy): 200, #Fx: , Dose Correction (cGy): 0, Total Dose (cGy): 1,400, Start Date: 07/25/2019, Elapsed Days: 8 Current Complaints/Interval History: MS De Leon is a little over 1 week into treatment. Her performance status is unchanged. She has no specific complaints related to radiation. She is on oxygen. She went on it several years ago. Based on her description, I do not feel there is been a recent change in her pulmonary status. She has a mild cough with minimal sputum production. She is in a wheelchair and has an overall poor performance status, though it has not changed with treatment. No questions about the treatment process. She is complimentary of the staff. Continue treatment as planned. Current Medications: Acetaminophen, cARBOplatin, desvenlafaxine ER, dexamethasone, dexamethasone Sodium Phosphate, diclofenac Sodium, diphenhydrAMINE HCl, famotidine in NaCl, hydroCHLOROthiazide, k-Tab, lORazepam, montelukast Sodium, omeprazole, pACLitaxel, palonosetron HCl, pARoxetine HCl ER, prochlorperazine Maleate, trelegy Ellipta, vESIcare. Allergies: Codeine Sulfate. Vital Signs: Performed on 08/02/2019 12:34 PM Height - 65.00 in, Weight - lbs, Temperature - 98.5 f, Pulse - 94 /min, Respiration - 26 /min, O2 Sat - 97 %, Pain - 0, BP - 99/ 60 mm(hg)(/low), Performed on 08/02/2019 1:58 PM Height - 65.00 in, Temperature - 98.5 f, Pulse - 94, Respiration - 26, O2 Sat - 97 %, Pain - 0 and BP - 99/ 60 mm(hg)(/low). Physical Exam: Appears stable, no skin erythema or desquamation. Performance Status: 2 - Ambulatory/capable of all self-care, unable to perform any work activities. Up and about more than 50% of waking hours. (ECOG) Lab: None pending in Radiation Oncology. Test performed on 08/01/2019 2:35 PM RBC - 3.56 10 6/ul (low), HGB - 10.0 g/dl (low), HCT - 32.5 % (low), Neutrophils - 8.0 10 3/ul (high), Lymphocytes - 0.7 10 3/ul (low), Chloride - 96 mmol/l (low), CO2 - 33 mmol/l (high), Cr Clearance (Est) - 69.5300 ml/min (low), Glucose - 159 mg/dl (high) and Albumin - 3.1 g/dl (low). Imaging: No new diagnostic imaging was performed since the last weekly treatment visit. All radiation therapy related imaging (including but not limited to kV, MV, and CBCT generated images) was reviewed. Appropriate changes, if any, were made to assure accurate target localization. Impression/Plan: Tolerating treatment well with expected side effects. Continue treatment as planned. CPT: 58187 Signed by: Dr. Darrius Urena>08/02/2019 3:35:12 PM <<Signature on File>>
--- NOTE | 2019-08-06 22:44 | ONC FU_ITS ---
Yuriy Amato Patient Note Patient: Ora De Leon Unit #: [id number]: 1940 Dictated By: Kenji PressleyDate of Visit: Aug 02, 2019 Onc MED Follow-Up/Prog Note Chief Complaint: Left Lung cancer History of Present Illness: Mrs De Leon is a 78-year-old female with a history of abnormal chest x-ray with a left upper lobe lung mass. The mass was confirmed with CT scan of chest. Subsequently on 07/05/2019, she underwent bronchoscopy and endobronchial ultrasound-guided transbronchial needle aspiration of lymph nodes. 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 Lymph node aspiration showed benign lymph nodes and cytology from bronchoalveolar lavage and Cytobrush were negative too. She underwent CT PET scan on 06/28/2019 in [place], [place] which showed large metabolic active mass within left upper lobe, mild adjacent nodularity in the left lung may reflect some satellite lesion or inflammation; Mildly enlarged mediastinal lymph nodes with some increase in metabolic activity could represent early metastatic disease; Wedge compression of T12 vertebral body of indeterminate age. Due to poor pulmonary reserve, patient is on home oxygen. She was considered not to be a candidate for surgical resection. Mrs De Leon was offered treatment with combined treatment with radiation therapy and chemotherapy. She began her first week of treatment on 07/26/2019. She has tolerated it well so far. Ms. De Leon is here today for follow-up. She is accompanied by her daughter Janay. Janay states that Ms. De Leon she has been having quite a bit of problems with anxiety. She states that she is so anxious she can only get in the shower. She states she also gets anxious before coming to the clinic. When inquired about whether she has been taking Lorazepam or anything for the anxiety Janay states that she has not been taking anything. She does have lorazepam on hand and have asked her to take a half a 1 before she gets in the shower if she needs to take another half within 30 minutes to an hour that is okay as long as she is not sedated or at risk for falling. She is also has a hard time coughing up any phlegm but does cough some up. She states this far is been a little brown-grayish and chunky. She states is very small amounts. She is not doing any Mucinex currently but states that she has in the past and tolerated it well. Janay states that Ms. De Leon is also not eating well. She has no appetite. She feels that the Pristiq that Ms. De Leon she has been on for several years is no longer working. She states she does not think even increasing the dose will help. She states she would like her weaned off of it and put on something else. Ms. De Leon denies any nausea or vomiting. She has had no diarrhea or uncontrolled constipation. She denies any new pain. She denies fever or chills or any signs of infection for at least the last 72 hours. She states she has not been running one sick. She denies any neuropathy symptoms at this time. She is had no hearing changes. Her ECOG is 2. Past Medical History: Chronic back pain Chronic kidney disease (stage II) Chronic obstructive pulmonary disease Degenerative joint disease Dementia Depression Hypertension Past Surgical History: Appendectomy Bronchoscopy Cholecystectomy Ercp Laser eye surgery Tubal ligation Allergies: Codeine Sulfate Medications: Desvenlafaxine ER 1 Tablet (of 50 mg) Tablet SR 24 HR Oral daily hydroCHLOROthiazide 1 Tablet (of 12.5 mg) Oral daily Montelukast Sodium 1 Tablet (of 10 mg) Oral daily Omeprazole 1 Capsule (of 20 mg) Capsule Delayed Release Oral daily Trelegy Ellipta 1 Puff(s) (of 100-62.5-25 mcg/inh) Aerosol Powder, Breath Activated Inhalation PRN VESIcare 1 Tablet (of 10 mg) Oral daily Family History: Ms. De Leon's mother at age 95. Ms. De Leon's father at age 98. Ms. De Leon has 1 brother who is : lung cancer, and brain cancer. She has 1 sister who is . Social History: Ms. De Leon is . Ms. De Leon quit smoking 4 years ago but had smoked 1.5 packs/day for 59 years. She drinks occasionally. pt states once every 2 months a glass of wine. Review Of Symptoms: Constitutional Denies fevers, chills, night sweats, excessive fatigue or weight loss. Daughter states patient is very anxious and has no appetite. The [employer] is not working and she has been on it for may years-since 2006 . Allergic/Immunologic No reactions. Eyes Denies significant visual changes. No diplopia. No amaurosis. ENMT Denies changes in hearing, sore throat, mouth sores, difficulty or changes in swallowing ability, and/or sinus drainage. Hematologic/Lymphatic Denies easy bruising or bleeding. The patient denies any tender or palpable lymph nodes. Respiratory Denies dyspnea on exertion, chest pain, cough or hemoptysis. Denies orthopnea. Cardiovascular Denies anginal chest pain, palpitations or orthopnea. Gastrointestinal Denies nausea, vomiting, diarrhea, GI bleeding, or constipation. Denies change in bowel habits and/or stool color, no heartburn or early satiety. Genitourinary (F) No hematuria, hesitancy, incontinence, vaginal bleeding, discharge or other problems with urination. Musculoskeletal Denies joint pain, swelling or redness. No decreased range of motion. Integumentary Denies chronic rashes, inflammation, ulcerations or skin changes. Psychiatric Denies insomnia, depression, mariela or mood swings. Vital Signs: Performed on Aug 02, 2019 13:58 Height - 65.00 in Temperature - 98.5 F Pulse - 94 Respiration - 26 BP - 99/60 mm(hg) O2 Sat - 97 % Pain - 0 Performed on Aug 02, 2019 12:34 Height - 65.00 in Weight - lbs Temperature - 98.5 F Pulse - 94 /min Respiration - 26 /min BP - 99/60 mm(hg) O2 Sat - 97 % Pain - 0,2 - Ambulatory/capable of all self-care, unable to perform any work activities. Up and about more than 50% of waking hours. (ECOG) Physical Examination: Constitutional Alert, oriented, no acute distress. Skin pink, warm and dry. Head Normocephalic; atraumatic. Eyes Conjunctivae and sclerae are clear and without icterus. Pupils are reactive and equal. ENMT No oral exudates, ulcers, masses, thrush or mucositis. Oropharynx clear. Tongue normal. Neck Supple without masses or thyromegaly. No jugular venous distension. Hematologic/Lymphatic No petechiae or purpura. No tender or palpable lymph nodes in the cervical or supraclavicular areas. Respiratory Lungs are clear to auscultation without rhonchi or wheezing. Cardiovascular Regular rate and rhythm of heart without murmurs,clicks, gallops or rubs. Abdomen Non-tender, non-distended, no masses or ascites. Good bowel sounds noted in all quads. No guarding or rebound tenderness. No pulsatile masses. Back/Spine Non-tender to palpation. Extremities No visible deformities, no cyanosis, clubbing or edema. Musculoskeletal No tenderness or swelling, normal range of motion without obvious weakness. Integumentary No rashes or lesions. Neurologic No sensory or motor deficits, normal cerebellar function, presents in wheelchair today-gait not assessed. Psychiatric Alert and oriented times three. Coherent speech. Verbalizes understanding of our discussions today. Laboratory:Test performed on Aug 01, 2019 14:35 Sodium 136 mmol/L Potassium 3.7 mmol/L Chloride 96 mmol/L CO2 33 mmol/L Anion Gap 10.7 BUN 12 mg/dL Creatinine 0.7 mg/dL Cr Clearance (Est) 69.5300 mL/min Glucose 159 mg/dL Calcium 9.8 mg/dL Protein, Total 7.5 g/dL Albumin 3.1 g/dL Globulin 4.4 g/dL Bilirubin, Total 0.9 mg/dL ALT (SGPT) 15 U/L AST (SGOT) 22 U/L Alkaline Phosphatase 82 IU/L WBC 9.5 10 3/uL RBC 3.56 10 6/uL HGB 10.0 g/dL HCT 32.5 % MCV 91.3 fL MCH 28.1 pg MCHC 30.8 g/dL RDW 14.3 % Platelet Count 305 10 3/cmm MPV 9.9 fL Neutrophils 8.0 10 3/uL Lymphocytes 0.7 10 3/uL Monocytes 0.4 10 3/uL Eosinophils 0.2 10 3/uL Basophils 0.1 10 3/uL Neutrophil % 84.6 % Lymphocyte % 6.9 % Monocyte % 4.2 % Eosinophil % 2.1 % Basophils % 0.9 % Impression: 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 Wedge compression of T12 vertebral body of indeterminate age. Clinical stage COPD, on home oxygen Dementia Essential hypertension Dr Crump discussed with Ms De Leon and her family her disease status and treatment options. Considering Ms De Leon's poor pulmonary reserve, she is not a candidate for surgical resection. The role of combined chemoradiation was discussed in detail, and she was offered weekly carboplatin Taxol concurrent radiation therapy, if tolerated well we'll discuss about 2 cycles of full dose carboplatin/Taxol followed by maintenance therapy with durvalumab for 12 months. Planning to give her carboplatin AUC 2 Taxol 45-50 mg/m??? weekly concurrent with radiation therapy. Plan: 1. Proceed with week 2 carboplatin paclitaxel at same dosing. 2. Steroid compliance confirmed. 3. Continue current anti-medics as they are working well. 4. She may try Ativan 1/2 to 1 tablet as needed up to 3 times daily for anxiety or severe nausea at home. 5. We will try to have Paxil 12.5 mg 1-2 daily authorized by insurance. If this is approved we will have her decrease her Pristiq to 50 mg every other day as she has the Paxil 12.5 mg daily for 1 week. She will then begin increasing the Paxil CR 12.5 mg to 2 tabs daily and decrease the Pristiq to 50 mg every other day for 7 days. She will then continue a slow taper off the Pristiq over 6 additional weeks. A copy of instructions to wean off is in her chart. (If we cannot get Paxil CR approved, my next choice would be Zyprexa-I would like an agent that will help with anxiety and depression as well as increase her appetite and control chemo induced nausea should it arise). 6. Labs from August 01, 2019 were reviewed in detail discussed with Ms. De Leon and her daughter and a copy was given to them. WBC 9.5, hemoglobin 10.0, platelets 305,000, ANC is 8000 potassium 3.7 creatinine 0.7 random glucose was 139 and LFTs are normal. 7. Plan for her to return in 1 week with CBC CMP the day before via in-home lab if possible. She will be due for week 3 carboplatin paclitaxel at that time. She was again reminded to take her steroids ahead of time. 8. Mrs. De Leon nstructed to contact us in the interim should questions or problems arise. Janay was encouraged to let us know if she does not feel the Paxil CR helps with Ms De Leon's anxiety/depression or helps with her appetite. Given Ms De Leon's history of dementia, I would pursue Marinol as a last option for appetite stimulant at this time. Signed By: Kenji Pressley-, AOP Riya Crump MD <<Signature on File>>
== END 2019-08-06 09:45 | disposition home or self-care (01) ==
LOC: ONCMED 05:53
PROVIDERS: Internal Medicine Hematology & Oncology; Family Provider Family Medicine; PCP Family Medicine; Visit Provider Specialist
DX: Z51.0 Encounter for antineoplastic radiation therapy (principal); Z51.11 Encounter for antineoplastic chemotherapy; C34.12 Malignant neoplasm of upper lobe, left bronchus or lung; F41.9 Anxiety disorder, unspecified; I12.9 Hypertensive chronic kidney disease with stage 1 through stage 4 chronic kidney disease, or unspecified chronic kidney disease; G89.29 Other chronic pain; M54.9 Dorsalgia, unspecified; N18.2 Chronic kidney disease, stage 2 (mild); J44.9 Chronic obstructive pulmonary disease, unspecified; M19.90 Unspecified osteoarthritis, unspecified site; F03.90 Unspecified dementia, unspecified severity, without behavioral disturbance, psychotic disturbance, mood disturbance, and anxiety; F32.9 Major depressive disorder, single episode, unspecified; Z99.81 Dependence on supplemental oxygen; Z79.899 Other long term (current) drug therapy
CPT/HCPCS: 36591; 77336; 77386; 80053; 85025; 96367; 96413; 96417; 99211; 99214; J1100; J1200; J2469; J3490; J7030; J7040; J7050; J9045; J9267

== ENCOUNTER 2019-08-06 09:57 | Emergency (ER) | payer MEDICARE, SELFPAY ==
[2019-08-06 10:18] VITALS: BMI 24.5
[2019-08-06 10:20] VITALS: BP 103/68; PULSE 113; RESP 22; TEMP 36.8; O2SAT 96
--- NOTE | 2019-08-06 10:25 | ED_ITS ---
Entered by Paola Lanier, acting as scribe for Ej Romano DO Aug 06, 2019 09:57 HPI - General Adult General: Chief complaint: General Medical Time Seen by Provider: 08/06/19 10:23 History of Present Illness: HPI narrative: 78 yo male presents with abd pain. Pt is a cancer patient. Daughter states that pt has lost control of her bladder. Pt has had a fever at home. Daughter states that all of this started last night. Daughter states that she has noticed that pts urine is dark. Daughter states that pt is more confused than normal. Pt is receiving radiation and chemo. complaint: abd pain Onset (ago): day(s) (1) Location: abdomen Severity: moderate Quality: aching Pain Consistency: constant Associated symptoms: Reports confusion, malaise and short of breath; Deny chest pain, dyspnea, nausea, rash or vomiting Review of Systems Const: Reports: fever and malaise; Denies: chills, body aches, change in appetite or fatigue ENMT: Denies: throat pain, ear pain, nasal discharge or nasal congestion Card: Denies: chest pain, edema, shortness of breath on exertion or shortness of breath when lying down Resp: Denies: shortness of breath, productive cough or non-productive cough GI: Reports: abdominal pain; Denies: nausea, vomiting, vomiting blood, coffee grounds in vomit, diarrhea, constipation, bloating, blood in stool or black tarry stool : Reports: urinary frequency and urinary incontinence; Denies: flank pain, difficulty urinating, painful urination or urinary urgency Skin/Breast: Denies: rash or itching Neuro: Reports: confusion PFSH ED PFSH: Medical History Chronic back pain CKD (chronic kidney disease), stage II COPD (chronic obstructive pulmonary disease) Dementia Depression DJD (degenerative joint disease) of cervical spine Essential (primary) hypertension Surgical History H/O tubal ligation History of appendectomy History of cholecystectomy History of ERCP History of surgical procedure on eye proper using laser Social History Smoking and tobacco status: former smoker Quit status (tobacco): has quit using tobacco Year quit tobacco: 2016 Alcohol intake: current Alcohol intake frequency: few times a month Alcohol type: wine Household members: children Marital status: / History of recent travel: No Current gender identity: Female Physical Exam Const: COMMON NORMALS: no apparent distress; negative for alert GENERAL APPEARANCE: ill appearing and frail appearing ORIENTATION/CONSCIOUSNESS: Yes awake HENMT: COMMON NORMALS: normocephalic, head/scalp atraumatic, hearing grossly normal bilaterally, external ears normal, EAC's normal, TM's normal bilaterally, nasal mucous membranes and turbinates normal, moist oral mucous membranes and oropharynx normal HEAD & SCALP: normocephalic and atraumatic NOSE: nasal mucous membranes and turbinates normal EXTERNAL EAR: Yes external ears normal EXTERNAL AUDITORY CANAL: EAC's normal TYMPANIC MEMBRANE: TM's normal bilaterally Eye: COMMON NORMALS: PERRL, EOMs intact bilaterally, conjunctivae normal and no scleral icterus CONJUNCTIVA: Yes conjunctivae normal PUPIL: Yes PERRL Neck/C-Spine: COMMON NORMALS: full ROM, no lymphadenopathy, supple and no JVD Lymph: LYMPHATIC: no lymphadenopathy noted and no lymphedema noted Resp: COMMON NORMALS: normal respiratory effort, no retractions, no use of accessory muscles and clear to auscultation bilaterally AUSCULTATION: clear to auscultation bilaterally Cardio: COMMON NORMALS: no JVD, regular rate, regular rhythm and no murmurs RATE: regular rate RHYTHM: regular rhythm GI: COMMON NORMALS: soft to palpation and no hepatosplenomegaly AUSCULTATION: Yes normoactive bowel sounds PALPATION: Yes soft, No tender, No guarding and Yes no hepatosplenomegaly Extremity: COMMON NORMALS: normal to inspection, normal capillary refill, no clubbing, cyanosis or edema, no calf tenderness and no pedal edema Neuro: SENSORIUM/ORIENTATION: No alert Skin: COMMON NORMALS: no rashes or lesions noted GENERAL SKIN EXAM: no rashes or lesions noted Course Vital Signs: Vital signs: Vital Signs Temperature 98.2 F 08/06/19 10:20 Pulse Rate 80 08/06/19 14:50 Respiratory Rate 16 08/06/19 14:50 Blood Pressure 107/55 08/06/19 14:50 Pulse Oximetry 99 08/06/19 14:50 MDM - General Adult MDM Narrative: Medical decision making narrative: Patient doing well at this point will go ahead and discharge her home to use mag citrate to relieve the immediate constipation and then Sheila-Colace twice daily Lab Data: Labs: Lab Results 08/06/19 08/06/19 08/06/19 Range/Units 10:42 10:42 10:42 WBC 6.4 (4.0-10.0) 10^3/ uL RBC 3.32 L (4.1-5.3) 10^6/u L Hgb 9.4 L (11.5-15.3) g/dL Hct 29.8 L (37.0-47.0) % MCV 89.8 (81-99) fL MCH 28.3 (28.0-34.0) pg MCHC 31.5 (30.0-36.0) g/dL RDW 14.7 (12.1-15.1) % Plt Count 199 (130-400) 10^3/c mm MPV 10.1 (7.4-10.4) fL Neut % (Auto) 90.9 % Lymph % (Auto) 3.3 % [place] % (Auto) 3.6 % Eos % (Auto) 0.3 % Baso % (Auto) 0.5 % Neut # (Auto) 5.8 (1.8-7.7) 10^3/u L Lymph # (Auto) 0.2 L (0.8-4.8) 10^3/u L [place] # (Auto) 0.2 (0.2-0.9) 10^3/u L Eos # (Auto) 0.0 (0.0-0.8) 10^3/u L Baso # (Auto) 0.0 (0.0-0.1) 10^3/u L Nucleated RBC % (a uto) 0 % Nucleated RBCs # 0.0 /100WBC Specimen Type Sample Site ABG pH (7.35-7.45) ABG pCO2 (35-45) mmHg ABG pO2 (80.0-100.0) mmH g ABG HCO3 (22-26) mmol/L ABG O2 Saturation ABG Base Excess (-2.0-2.0) mmol/ L Dat Test A-a O2 Gradient (5-10) mmHg Hematocrit (37-47) % Hgb O2 Saturation (95-100) % Carboxyhemoglobin (0.4-20.1) %THgb Methemoglobin (0.4-1.5) % Total Hemoglobin (12-16) g/dL Ionized Calcium (1.1-1.4) mmol/L O2 Delivery Device O2 Liters/Min % FiO2 % Double Cut Sawyer ID Sodium 134 L (136-145) mmol/L Potassium 3.6 (3.5-5.1) mmol/L Chloride 97 L (98-107) mmol/L Carbon Dioxide 32 H (22-29) mmol/L Anion Gap 8.6 (5-19) BUN 11 (8-23) mg/dL Creatinine 0.5 (0.5-0.9) mg/dL Glucose 140 H (65-115) mg/dL Calculated Osmolal ity 276 L (285-295) mOsm/k g Calcium 9.3 (8.5-10.5) mg/dL Total Bilirubin 2.6 H (0.15-1.2) mg/dL AST 19 (0-32) U/L ALT 16 (0-33) U/L Alkaline Phosphata se 80 (35-105) IU/L Total Protein 6.8 (6.6-8.7) g/dL Albumin 3.0 L (3.5-5.2) g/dL Globulin 3.8 (1.3-4.6) g/dL Lipase 7 L (13-60) U/L Urine Color (Yellow) Urine Appearance (CLEAR) Urine pH (5-7) Ur Specific Gravit y (1.005-1.030) Urine Protein (Negative) Urine Glucose (UA) (Normal) Urine Ketones (Negative) Urine Blood (Negative) Urine Nitrate (Negative) Urine Bilirubin (NEGATIVE) Urine Urobilinogen (Negative) mg/dL Ur Leukocyte Avis ase (Negative) Urine RBC (0-2) /hpf Urine WBC (0-5) /hpf Ur Squamous Epith Cells (0-5) Amorphous Sediment Urine Bacteria (NONE) Urine Mucus Serum Ketones Negative (Negative) Influenza Type A A g (Negative) POC Influenza B Ag (Negative) 08/06/19 08/06/19 08/06/19 Range/Units 11:00 11:15 11:15 WBC (4.0-10.0) 10^3/ uL RBC (4.1-5.3) 10^6/u L Hgb (11.5-15.3) g/dL Hct (37.0-47.0) % MCV (81-99) fL MCH (28.0-34.0) pg MCHC (30.0-36.0) g/dL RDW (12.1-15.1) % Plt Count (130-400) 10^3/c mm MPV (7.4-10.4) fL Neut % (Auto) % Lymph % (Auto) % [place] % (Auto) % Eos % (Auto) % Baso % (Auto) % Neut # (Auto) (1.8-7.7) 10^3/u L Lymph # (Auto) (0.8-4.8) 10^3/u L [place] # (Auto) (0.2-0.9) 10^3/u L Eos # (Auto) (0.0-0.8) 10^3/u L Baso # (Auto) (0.0-0.1) 10^3/u L Nucleated RBC % (a uto) % Nucleated RBCs # /100WBC Specimen Type Arterial Sample Site Radial, left ABG pH 7.48 H (7.35-7.45) ABG pCO2 39.4 (35-45) mmHg ABG pO2 81.5 (80.0-100.0) mmH g ABG HCO3 29.2 H (22-26) mmol/L ABG O2 Saturation 97.4 ABG Base Excess 5.2 H (-2.0-2.0) mmol/ L Dat Test Pos A-a O2 Gradient 98.6 H (5-10) mmHg Hematocrit 30.2 L (37-47) % Hgb O2 Saturation 95.2 (95-100) % Carboxyhemoglobin 1.5 (0.4-20.1) %THgb Methemoglobin 0.8 (0.4-1.5) % Total Hemoglobin 9.9 L (12-16) g/dL Ionized Calcium 1.2 (1.1-1.4) mmol/L O2 Delivery Device Nc O2 Liters/Min 3.0 % FiO2 32.0 % Double Cut Sawyer ID ed Sodium 135.0 (136-145) mmol/L Potassium 3.5 (3.5-5.1) mmol/L Chloride (98-107) mmol/L Carbon Dioxide (22-29) mmol/L Anion Gap (5-19) BUN (8-23) mg/dL Creatinine (0.5-0.9) mg/dL Glucose 116.0 H (65-115) mg/dL Calculated Osmolal ity (285-295) mOsm/k g Calcium (8.5-10.5) mg/dL Total Bilirubin (0.15-1.2) mg/dL AST (0-32) U/L ALT (0-33) U/L Alkaline Phosphata se (35-105) IU/L Total Protein (6.6-8.7) g/dL Albumin (3.5-5.2) g/dL Globulin (1.3-4.6) g/dL Lipase (13-60) U/L Urine Color Dark yellow (Yellow) Urine Appearance Sl hazy (CLEAR) Urine pH 7 (5-7) Ur Specific Gravit y 1.010 (1.005-1.030) Urine Protein Neg (Negative) Urine Glucose (UA) Norm (Normal) Urine Ketones Negative (Negative) Urine Blood Neg (Negative) Urine Nitrate Negative (Negative) Urine Bilirubin 1+ H (NEGATIVE) Urine Urobilinogen 8 H (Negative) mg/dL Ur Leukocyte Avis ase Negative (Negative) Urine RBC None (0-2) /hpf Urine WBC None (0-5) /hpf Ur Squamous Epith Cells 0-4 H (0-5) Amorphous Sediment 2+ Urine Bacteria Trace (NONE) Urine Mucus Trace Serum Ketones (Negative) Influenza Type A A g Negative (Negative) POC Influenza B Ag Negative (Negative) Discharge Plan Discharge Patient Disposition: Home, Self-Care Clinical Impression: Constipation by delayed colonic transit, COPD (chronic obstructive pulmonary disease), Non-small cell cancer of left lung, Hyperbilirubinemia, Anemia, Urinary incontinence Condition: Stable Prescriptions: New magnesium citrate Solution 150 ml PO BID PRN (Reason: constipation) Qty: 296 RF: 0 No Action meclizine 25 mg tablet 25 mg PO QID PRN (Reason: Dizziness) RF: 0 ipratropium-albuterol 0.5 mg-3 mg(2.5 mg base)/3 mL solution for nebulization 3 ml INHALATION Q6H PRN (Reason: wheezing) Qty: 360 RF: 3 hydrocodone-acetaminophen 5-325 mg tablet 1 - 2 tab PO Q5H PRN (Reason: pain) Qty: 20 RF: 0 Compazine 10 mg Tablet 10 mg PO Q4H PRN (Reason: Nausea) RF: 0 dexamethasone 4 mg Tablet See Rx Instructions .ROUTE .COMPLEX RF: 0 montelukast 10 mg Tablet 10 mg PO DAILY RF: 0 Ativan 1 mg Tablet 0.5 mg PO TID PRN (Reason: Anxiety) RF: 0 paroxetine HCl 12.5 mg Tablet Extended Release 24 Hr 12.5 mg PO DAILY RF: 0 Discharge Orders: Discharge Order (Routine); Ordered 08/06/19 Ordered By: Ej Romano Referrals: Nestor Cross MD [Primary Care Provider] - Discharge Diet: Usual diet Discharge Activity: Resume usual activity Activity Restrictions/Additional Instructions: Follow-up with your oncologist as previously directed Discharge Date/Time: 08/06/19 14:51 Coding Level of Care Code ED Residential Subcontractor for Chg Fwd Exam Comprehensive The documentation recorded by the Yannick velasquez Kialy, accurately reflects the service I personally performed and the decisions made by Rosalina nicholson Curtis L, DO Aug 06, 2019 09:57
[2019-08-06 10:27] VITALS: O2SAT 96
--- NOTE | 2019-08-06 10:32 | XR_ITS ---
WS: [id number] XR chest 1V portable [id number] REASON FOR EXAM: dyspnea/cough FINDINGS: Diffuse alveolar infiltrate off the left lingula segment. This lesion is larger than previo us exam of 1220 06/26/2018. And has findings consistent with bronchogenic carcinoma. The heart is not enlarged there is arteriosclerotic changes seen. A Mediport is seen on the right side. XR/XR chest 1V portable [id number] IMPRESSION: Increasing mass in the left lingula segment.
--- NOTE | 2019-08-06 10:32 | CTR_ITS ---
PROCEDURE INFORMATION: Exam: CT Abdomen And Pelvis With Contrast Exam date and time: 08/06/2019 11:17 AM Age: 78 years old Clinical indication: Abdominal pain; Generalized; Prior surgery; Surgery date: 6+ months; Surgery type: Gb, appy; Additional info: Abd pain TECHNIQUE: Imaging protocol: Computed tomography of the abdomen and pelvis with intravenous contrast. Total DLP: 587.75 mGy-cm Radiation optimization: All CT scans at this facility use at least one of these dose optimization techniques: automated exposure control; mA and/or kV adjustment per patient size (includes targeted exams where dose is matched to clinical indication); or iterative reconstruction. Contrast material: OMNI 300; Contrast volume: 95 ml; Contrast route: LT FOREARM; COMPARISON: CT pelvis wo con [id number] 01/21/2015 10:30 PM FINDINGS: Lungs: Emphysematous change, interstitial prominence, and bibasilar airspace disease. Small left pleural effusion. Coronary artery calcification. Liver: No focal hepatic mass. Gallbladder and bile ducts: Status post cholecystectomy. Pancreas: Pancreatic calcifications consistent with chronic pancreatitis. Spleen: Poorly characterized 6 mm nodular hypodensity in the posterior medial spleen. Adrenals: Unremarkable adrenals. Kidneys and ureters: Normal renal morphology. No hydronephrosis. Stomach and bowel: Mild wall thickening in the nondistended stomach. No significant small bowel dilatation. Copious stool, in a pattern of constipation. Appendix: Status post appendectomy. Intraperitoneal space: No free fluid. Vasculature: Prominent vascular calcification and ectasia of the abdominal aorta, which measures 2.4 cm in maximum diameter. Lymph nodes: No pathologically enlarged lymph nodes. Bladder: Osborne catheter in the decompressed bladder. Reproductive: Unremarkable as visualized. Bones/joints: Osteopenia and chronic T12 compression fracture. Grade 1 anterior listhesis of L5 on S1. Degenerative change and L5-S1 vacuum disc. CT/CT abdomen pelvis w con* [id number] IMPRESSION: 1. Mild wall thickening in the nondistended stomach. 2. Copious stool, in a pattern of constipation. 3. Additional findings as described above. Radiation Dose CTDIVOL = (mGy): DLP = 587.75 (mGy-cm)
--- NOTE | 2019-08-06 10:32 | ECG_ITS ---
Measurements Intervals Maxwell Rate: 105 P: 72 WV: 127 QRS: 37 QRSD: 84 T: 65 QT: 323 QTc: [address] DEPRESSION [0.05+ mV ST DEPRESSION] Compared to ECG 05/08/2019 12:08:58 ST (T wave) deviation now present Sinus rhythm no longer present Electronically Signed On 08-06-2019 14:51:09 CDT by Paramjit Flores M.D. [email or web address]
[2019-08-06 10:52] VITALS: PULSE 100; RESP 17; O2SAT 100
[2019-08-06 10:52] LABS: Basophils % 0.5 %; Eosinophils % 0.3 %; Hematocrit 29.8 % (37.0-47.0); Hemoglobin 9.4 g/dL (11.5-15.3); Lymphocytes # 0.2 10^3/uL (0.8-4.8); Lymphocytes % 3.3 %; Mean Corpuscular HGB Conc 31.5 g/dL (30.0-36.0); Mean Corpuscular Hemoglobin 28.3 pg (28.0-34.0); Mean Corpuscular Volume 89.8 fL (81-99); Mean Platelet Volume 10.1 fL (7.4-10.4); Monocytes # 0.2 10^3/uL (0.2-0.9); Monocytes % 3.6 %; Neutrophils # 5.8 10^3/uL (1.8-7.7); Neutrophils % 90.9 %; Nucleated Red Blood Cells % 0 %; Platelet Count 199 10^3/cmm (130-400); Red Blood Count 3.32 10^6/uL (4.1-5.3); Red Cell Distribution Width 14.7 % (12.1-15.1); White Blood Count 6.4 10^3/uL (4.0-10.0)
[2019-08-06] MEDS: ipratropium-albuterol 3 mL Neb INHALATION (10:52)
[2019-08-06 11:01] VITALS: PULSE 103
[2019-08-06] MEDS: ondansetron 2 mg/ML SDV 2 mL 4 MG IVP (11:01)
[2019-08-06 11:02] LABS: Ketone (Acetest) Serum Negative (Negative)
[2019-08-06 11:08] LABS: ABG PCO2 39.4 mmHg (35-45); ABG PH Result 7.48 (7.35-7.45); Alveolar-Arterial Oxygen Gradi 98.6 mmHg (5-10); Arterial Blood Gas Hematocrit 30.2 % (37-47); Base Excess ABG 5.2 mmol/L (-2.0-2.0); Blood Gas Allen Test Pos; Blood Gas Sample Site Radial, left; Blood Gas Sample Type Arterial; Carboxyhemoglobin 1.5 %THgb (0.4-20.1); HCO3 ABG 29.2 mmol/L (22-26); HGB O2 Sat 95.2 % (95-100); Ionized Calcium Level - ABG 1.2 mmol/L (1.1-1.4); Methemoglobin 0.8 % (0.4-1.5); Oxygen Device NC; Oxygen Saturation ABG 97.4; PO2 ABG 81.5 mmHg (80.0-100.0); Potassium Level - ABG 3.5 mmol/L (3.5-5.0); Total Hemoglobin 9.9 g/dL (12-16)
[2019-08-06 11:14] LABS: Alanine Aminotransferase 16 U/L (0-33); Alkaline Phosphatase 80 IU/L (35-105); Anion Gap 8.6 (5-19); Aspartate Amino Transferase 19 U/L (0-32); Blood Urea Nitrogen 11 mg/dL (8-23); Calcium 9.3 mg/dL (8.5-10.5); Carbon Dioxide 32 mmol/L (22-29); Chloride 97 mmol/L (98-107); Globulin 3.8 g/dL (1.3-4.6); Glucose 140 mg/dL (65-115); Lipase 7 U/L (13-60); Osmolality Calculated 276 mOsm/kg (285-295); Potassium 3.6 mmol/L (3.5-5.1); Sodium 134 mmol/L (136-145); Total Bilirubin 2.6 mg/dL (0.15-1.2); Total Protein 6.8 g/dL (6.6-8.7)
[2019-08-06 11:32] LABS: Add Urine Microscopic? YES; Bilirubin Urine 1+ (NEGATIVE); Blood Urine Neg (Negative); Glucose Urine UA Norm (Normal); Ketones Urine Negative (Negative); Leukocyte Esterase Urine Negative (Negative); Nitrate Urine Negative (Negative); Protein Urine Neg (Negative); Urine Appearance SL Hazy (CLEAR); Urine Color Dark Yellow (Yellow); Urobilinogen Urine 8 mg/dL (Negative); pH Urine 7 (5-7)
[2019-08-06 11:39] LABS: Bacteria Urine TRACE; Squamous Epithelial Cell Urine 0-4 (0-5)
[2019-08-06 11:40] LABS: Amorphous Sediment Urine 2+; Mucus Urine TRACE
[2019-08-06 11:41] LABS: Add Urine Culture? No
[2019-08-06 11:45] LABS: Influenza A by IFA Negative (Negative); Influenza B by IFA Negative (Negative)
[2019-08-06] MEDS: iohexol 300 mg/mL 100 mL Btl IV (11:59)
[2019-08-06] MEDS: morphine 4 mg/mL SDV 1 mL IVP (12:26)
[2019-08-06 14:50] VITALS: BP 107/55; PULSE 80; RESP 16; O2SAT 99
== END 2019-08-06 14:51 | disposition home or self-care (01) ==
PROVIDERS: Emergency Provider Family Medicine; Family Provider Family Medicine; PCP Family Medicine
DX: K59.01 Slow transit constipation (principal); R32 Unspecified urinary incontinence; C34.92 Malignant neoplasm of unspecified part of left bronchus or lung; E80.6 Other disorders of bilirubin metabolism; D64.9 Anemia, unspecified; I12.9 Hypertensive chronic kidney disease with stage 1 through stage 4 chronic kidney disease, or unspecified chronic kidney disease; N18.2 Chronic kidney disease, stage 2 (mild); J44.9 Chronic obstructive pulmonary disease, unspecified; F03.90 Unspecified dementia, unspecified severity, without behavioral disturbance, psychotic disturbance, mood disturbance, and anxiety; Z87.891 Personal history of nicotine dependence
CPT/HCPCS: 12345; 36600; 71045; 74177; 80051; 80053; 81001; 82009; 82810; 83690; 83986; 85025; 87040; 87804; 93005; 94640; 96374; 96375; 99283; 99284; A9270; J2270; J2405; Q9967

== ENCOUNTER 2019-08-13 16:06 | Inpatient (IN) | payer MEDICARE, SELFPAY ==
[2019-08-13] VITALS (7 sets, daily range): BP systolic 99–134; BP diastolic 61–80; PULSE 87–116; RESP 18–28; TEMP 36.4–36.8; O2SAT 83–99; BMI 23.3
--- NOTE | 2019-08-13 16:25 | ED_ITS ---
Documented by User: Ej Romano DO 08/15/19 14:23 HPI - General Adult General: Chief complaint: General Medical Stated complaint: FEVER; AMS; CANCER HX Time Seen by Provider: 08/13/19 16:23 History of Present Illness: HPI narrative: 78-year-old female comes in complaining of shortness of breath and cough she is moderately demented and is difficult to get any real significant history out of her she is essentially nonresponsive here. Usually it is at the long-term sats on room air 83% improved to 98% with 3 L by nasal cannula. Patient has known squamous cell CA of the lung and is been receiving both chemo and radiation..Listed review of systems obtained from primary caregiver Associated symptoms: Reports confusion and dyspnea Review of Systems General: Reports: ROS unobtainable due to mental status and other Resp: Reports: shortness of breath, productive cough and wheezing Neuro: Reports: difficulty walking and confusion PFSH ED PFSH: Medical History (Updated 08/15/19 @ 14:21 by Ej Romano DO) Chronic back pain Chronic kidney disease, stage II (mild) COPD (chronic obstructive pulmonary disease) Degenerative joint disease Dementia Depression Lung cancer Squamous cell cancer Lung mass Oxygen dependent Urinary incontinence Surgical History History of appendectomy Hx of cholecystectomy S/P ERCP Tubal ligation status Family History Brother Cancer Lung cancer and diabetes Mother Psychiatric illness Schizophrenia Sister Hypertension Other Diabetes Social History Smoking and tobacco status: former smoker Quit status (tobacco): has quit using tobacco Former quit date comment: But smoking 4 years ago Alcohol intake: current Alcohol intake frequency: few times a month Alcohol type: wine Substance/Drug Use: never Household members: family Housing: House Physical Exam HENMT: COMMON NORMALS: normocephalic, head/scalp atraumatic, hearing grossly normal bilaterally, external ears normal, EAC's normal, TM's normal bilaterally, nasal mucous membranes and turbinates normal, moist oral mucous membranes and oropharynx normal HEAD & SCALP: normocephalic and atraumatic NOSE: nasal mucous membranes and turbinates normal EXTERNAL EAR: Yes external ears normal EXTERNAL AUDITORY CANAL: EAC's normal TYMPANIC MEMBRANE: TM's normal bilaterally Eye: COMMON NORMALS: PERRL, EOMs intact bilaterally, conjunctivae normal and no scleral icterus CONJUNCTIVA: Yes conjunctivae normal PUPIL: Yes PERRL Neck/C-Spine: COMMON NORMALS: full ROM, no lymphadenopathy, supple and no JVD Lymph: LYMPHATIC: no lymphadenopathy noted and no lymphedema noted Resp: COMMON NORMALS: normal respiratory effort, no retractions and no use of accessory muscles AUSCULTATION: rhonchi and wheezes Cardio: COMMON NORMALS: no JVD, regular rate, regular rhythm and no murmurs RATE: regular rate RHYTHM: regular rhythm GI: COMMON NORMALS: soft to palpation and no hepatosplenomegaly AUSCULTATION: Yes normoactive bowel sounds PALPATION: Yes soft, No tender, No guarding and Yes no hepatosplenomegaly Extremity: COMMON NORMALS: normal to inspection, normal capillary refill, no clubbing, cyanosis or edema, no calf tenderness and no pedal edema Skin: COMMON NORMALS: no rashes or lesions noted GENERAL SKIN EXAM: no rashes or lesions noted Course Vital Signs: Vital signs: Vital Signs Temperature 98.2 F 08/15/19 12:04 Pulse Rate 85 08/15/19 12:04 Respiratory Rate 16 08/15/19 12:04 Blood Pressure 106/69 08/15/19 12:04 Pulse Oximetry 93 08/15/19 12:04 MDM - General Adult MDM Narrative: Medical decision making narrative: Patient checked out to Dr. Burton at change of shift Lab Data: Labs: Lab Results 08/13/19 08/13/19 08/13/19 Range/Units 17:02 17:18 17:18 WBC 6.9 (4.0-10.0) 10^3/ uL RBC 3.27 L (4.1-5.3) 10^6/u L Hgb 9.2 L (11.5-15.3) g/dL Hct 30.6 L (37.0-47.0) % MCV 93.6 (81-99) fL MCH 28.1 (28.0-34.0) pg MCHC 30.1 (30.0-36.0) g/dL RDW 15.6 H (12.1-15.1) % Plt Count 204 (130-400) 10^3/c mm MPV 10.2 (7.4-10.4) fL Neut % (Auto) 93.5 % Lymph % (Auto) 2.5 % [place] % (Auto) 1.9 % Eos % (Auto) 0.0 % Baso % (Auto) 0.6 % Neut # (Auto) 6.4 (1.8-7.7) 10^3/u L Lymph # (Auto) 0.2 L (0.8-4.8) 10^3/u L [place] # (Auto) 0.1 L (0.2-0.9) 10^3/u L Eos # (Auto) 0.0 (0.0-0.8) 10^3/u L Baso # (Auto) 0.0 (0.0-0.1) 10^3/u L Nucleated RBC % (a uto) 0 % Nucleated RBCs # 0.0 /100WBC Specimen Type Arterial Sample Site Brachial, left ABG pH 7.48 H (7.35-7.45) ABG pCO2 42.2 (35-45) mmHg ABG pO2 61.4 L (80.0-100.0) mmH g ABG HCO3 31.2 H (22-26) mmol/L ABG O2 Saturation 93.1 ABG Base Excess 6.9 H (-2.0-2.0) mmol/ L Dat Test N/a A-a O2 Gradient 108.9 H (5-10) mmHg Hematocrit 33.0 L (37-47) % Hgb O2 Saturation 91.1 L (95-100) % Carboxyhemoglobin 1.4 (0.4-20.1) %THgb Methemoglobin 0.7 (0.4-1.5) % Total Hemoglobin 10.8 L (12-16) g/dL Sodium 135.0 133 L (131-143) mmol/L Potassium 3.3 L 3.4 L (3.5-5.0) mmol/L Glucose 103.0 114 (70-115) mg/dL Ionized Calcium 1.2 (1.1-1.4) mmol/L O2 Delivery Device Nc O2 Liters/Min 3.0 % FiO2 32.0 % School Business Manager ID amh Chloride 96 L (98-107) mmol/L Carbon Dioxide 27 (22-29) mmol/L Anion Gap 13.4 (5-19) BUN 12 (8-23) mg/dL Creatinine 0.4 L (0.5-0.9) mg/dL Calculated Osmolal ity 273 L (285-295) mOsm/k g Lactic Acid (0.5-2.2) mmol/L Calcium 9.2 (8.5-10.5) mg/dL Total Bilirubin 1.4 H (0.15-1.2) mg/dL AST 21 (0-32) U/L ALT 17 (0-33) U/L Alkaline Phosphata se 96 (35-105) IU/L Total Protein 6.2 L (6.6-8.7) g/dL Albumin 2.6 L (3.5-5.2) g/dL Globulin 3.6 (1.3-4.6) g/dL Lipase 11 L (13-60) U/L Urine Color (Yellow) Urine Appearance (CLEAR) Urine pH (5-7) Ur Specific Gravit y (1.005-1.030) Urine Protein (Negative) Urine Glucose (UA) (Normal) Urine Ketones (Negative) Urine Blood (Negative) Urine Nitrate (Negative) Urine Bilirubin (NEGATIVE) Urine Urobilinogen (Negative) mg/dL Ur Leukocyte Avis ase (Negative) Urine RBC (0-2) /hpf Urine WBC (0-5) /hpf Ur Squamous Epith Cells (0-5) Urine Bacteria (NONE) Influenza Type A A g (Negative) POC Influenza B Ag (Negative) 08/13/19 08/13/19 08/13/19 Range/Units 17:55 18:10 18:10 WBC (4.0-10.0) 10^3/ uL RBC (4.1-5.3) 10^6/u L Hgb (11.5-15.3) g/dL Hct (37.0-47.0) % MCV (81-99) fL MCH (28.0-34.0) pg MCHC (30.0-36.0) g/dL RDW (12.1-15.1) % Plt Count (130-400) 10^3/c mm MPV (7.4-10.4) fL Neut % (Auto) % Lymph % (Auto) % [place] % (Auto) % Eos % (Auto) % Baso % (Auto) % Neut # (Auto) (1.8-7.7) 10^3/u L Lymph # (Auto) (0.8-4.8) 10^3/u L [place] # (Auto) (0.2-0.9) 10^3/u L Eos # (Auto) (0.0-0.8) 10^3/u L Baso # (Auto) (0.0-0.1) 10^3/u L Nucleated RBC % (a uto) % Nucleated RBCs # /100WBC Specimen Type Sample Site ABG pH (7.35-7.45) ABG pCO2 (35-45) mmHg ABG pO2 (80.0-100.0) mmH g ABG HCO3 (22-26) mmol/L ABG O2 Saturation ABG Base Excess (-2.0-2.0) mmol/ L Dat Test A-a O2 Gradient (5-10) mmHg Hematocrit (37-47) % Hgb O2 Saturation (95-100) % Carboxyhemoglobin (0.4-20.1) %THgb Methemoglobin (0.4-1.5) % Total Hemoglobin (12-16) g/dL Sodium (131-143) mmol/L Potassium (3.5-5.0) mmol/L Glucose (70-115) mg/dL Ionized Calcium (1.1-1.4) mmol/L O2 Delivery Device O2 Liters/Min % FiO2 % [employer] Business Manager ID Chloride (98-107) mmol/L Carbon Dioxide (22-29) mmol/L Anion Gap (5-19) BUN (8-23) mg/dL Creatinine (0.5-0.9) mg/dL Calculated Osmolal ity (285-295) mOsm/k g Lactic Acid 0.9 (0.5-2.2) mmol/L Calcium (8.5-10.5) mg/dL Total Bilirubin (0.15-1.2) mg/dL AST (0-32) U/L ALT (0-33) U/L Alkaline Phosphata se (35-105) IU/L Total Protein (6.6-8.7) g/dL Albumin (3.5-5.2) g/dL Globulin (1.3-4.6) g/dL Lipase (13-60) U/L Urine Color Yellow (Yellow) Urine Appearance Cloudy (CLEAR) Urine pH 7 (5-7) Ur Specific Gravit y 1.010 (1.005-1.030) Urine Protein Neg (Negative) Urine Glucose (UA) Norm (Normal) Urine Ketones 1+ H (Negative) Urine Blood 3+ H (Negative) Urine Nitrate Negative (Negative) Urine Bilirubin 2+ H (NEGATIVE) Urine Urobilinogen Norm (Negative) mg/dL Ur Leukocyte Avis ase Negative (Negative) Urine RBC 80-100 H (0-2) /hpf Urine WBC 25-40 H (0-5) /hpf Ur Squamous Epith Cells 0-4 H (0-5) Urine Bacteria 4+ H (NONE) Influenza Type A A g Negative (Negative) POC Influenza B Ag Negative (Negative) Discharge Plan Discharge Patient Disposition: Admitted As Inpatient Admit Provider: David Christian Clinical Impression: Aspiration pneumonia, T12 compression fracture, Dehydration, Malnourished, Primary lung squamous cell carcinoma Condition: Stable Interventions: ED Discharge Assessment Last Done: 08/13/19 22:05 Discharge Date/Time: 08/13/19 22:07 Coding Level of Care Code ED [employer] Supervisor for Chg Fwd Documented by User: Ramírez Burton DO 08/13/19 20:25 HPI - General Adult General: Chief complaint: General Medical Stated complaint: FEVER; AMS; CANCER HX Time Seen by Provider: 08/13/19 16:23 PFSH ED PFSH: Medical History (Updated 08/15/19 @ 14:21 by Ej Romano DO) Chronic back pain Chronic kidney disease, stage II (mild) COPD (chronic obstructive pulmonary disease) Degenerative joint disease Dementia Depression Lung cancer Squamous cell cancer Lung mass Oxygen dependent Urinary incontinence Surgical History History of appendectomy Hx of cholecystectomy S/P ERCP Tubal ligation status Family History Brother Cancer Lung cancer and diabetes Mother Psychiatric illness Schizophrenia Sister Hypertension Other Diabetes Social History Smoking and tobacco status: former smoker Quit status (tobacco): has quit using tobacco Former quit date comment: But smoking 4 years ago Alcohol intake: current Alcohol intake frequency: few times a month Alcohol type: wine Substance/Drug Use: never Household members: family Housing: House Course Vital Signs: Vital signs: Vital Signs Temperature 98.2 F 08/15/19 12:04 Pulse Rate 85 08/15/19 12:04 Respiratory Rate 16 08/15/19 12:04 Blood Pressure 106/69 08/15/19 12:04 Pulse Oximetry 93 08/15/19 12:04 MDM - General Adult MDM Narrative: Medical decision making narrative: 78-year-old female checked out to me by Dr. Romano. She is demented. She comes in with shortness of breath, requiring oxygen which she normally does not require evidently. She has a right basilar infiltrate with small bilateral effusions on chest x-ray. Her white blood cell count is normal. Her hemoglobin is 9. She was mildly hypotensive, on arrival, but now not. Sats are 94 to 97% on oxygen. She will go to the floor. She does have a chronic appearing infiltrate in the left side, consistent with likely malignancy. Because of hypoxia, and appearance of chest x-ray, CTA has been ordered. At no point has this patient had a fever. Lab Data: Labs: Lab Results 08/13/19 08/13/19 08/13/19 Range/Units 17:02 17:18 17:18 WBC 6.9 (4.0-10.0) 10^3/ uL RBC 3.27 L (4.1-5.3) 10^6/u L Hgb 9.2 L (11.5-15.3) g/dL Hct 30.6 L (37.0-47.0) % MCV 93.6 (81-99) fL MCH 28.1 (28.0-34.0) pg MCHC 30.1 (30.0-36.0) g/dL RDW 15.6 H (12.1-15.1) % Plt Count 204 (130-400) 10^3/c mm MPV 10.2 (7.4-10.4) fL Neut % (Auto) 93.5 % Lymph % (Auto) 2.5 % [place] % (Auto) 1.9 % Eos % (Auto) 0.0 % Baso % (Auto) 0.6 % Neut # (Auto) 6.4 (1.8-7.7) 10^3/u L Lymph # (Auto) 0.2 L (0.8-4.8) 10^3/u L [place] # (Auto) 0.1 L (0.2-0.9) 10^3/u L Eos # (Auto) 0.0 (0.0-0.8) 10^3/u L Baso # (Auto) 0.0 (0.0-0.1) 10^3/u L Nucleated RBC % (a uto) 0 % Nucleated RBCs # 0.0 /100WBC Specimen Type Arterial Sample Site Brachial, left ABG pH 7.48 H (7.35-7.45) ABG pCO2 42.2 (35-45) mmHg ABG pO2 61.4 L (80.0-100.0) mmH g ABG HCO3 31.2 H (22-26) mmol/L ABG O2 Saturation 93.1 ABG Base Excess 6.9 H (-2.0-2.0) mmol/ L Dat Test N/a A-a O2 Gradient 108.9 H (5-10) mmHg Hematocrit 33.0 L (37-47) % Hgb O2 Saturation 91.1 L (95-100) % Carboxyhemoglobin 1.4 (0.4-20.1) %THgb Methemoglobin 0.7 (0.4-1.5) % Total Hemoglobin 10.8 L (12-16) g/dL Sodium 135.0 133 L (131-143) mmol/L Potassium 3.3 L 3.4 L (3.5-5.0) mmol/L Glucose 103.0 114 (70-115) mg/dL Ionized Calcium 1.2 (1.1-1.4) mmol/L O2 Delivery Device Nc O2 Liters/Min 3.0 % FiO2 32.0 % School Business Manager ID amh Chloride 96 L (98-107) mmol/L Carbon Dioxide 27 (22-29) mmol/L Anion Gap 13.4 (5-19) BUN 12 (8-23) mg/dL Creatinine 0.4 L (0.5-0.9) mg/dL Calculated Osmolal ity 273 L (285-295) mOsm/k g Lactic Acid (0.5-2.2) mmol/L Calcium 9.2 (8.5-10.5) mg/dL Total Bilirubin 1.4 H (0.15-1.2) mg/dL AST 21 (0-32) U/L ALT 17 (0-33) U/L Alkaline Phosphata se 96 (35-105) IU/L Total Protein 6.2 L (6.6-8.7) g/dL Albumin 2.6 L (3.5-5.2) g/dL Globulin 3.6 (1.3-4.6) g/dL Lipase 11 L (13-60) U/L Urine Color (Yellow) Urine Appearance (CLEAR) Urine pH (5-7) Ur Specific Gravit y (1.005-1.030) Urine Protein (Negative) Urine Glucose (UA) (Normal) Urine Ketones (Negative) Urine Blood (Negative) Urine Nitrate (Negative) Urine Bilirubin (NEGATIVE) Urine Urobilinogen (Negative) mg/dL Ur Leukocyte Avis ase (Negative) Urine RBC (0-2) /hpf Urine WBC (0-5) /hpf Ur Squamous Epith Cells (0-5) Urine Bacteria (NONE) Influenza Type A A g (Negative) POC Influenza B Ag (Negative) 08/13/19 08/13/19 08/13/19 Range/Units 17:55 18:10 18:10 WBC (4.0-10.0) 10^3/ uL RBC (4.1-5.3) 10^6/u L Hgb (11.5-15.3) g/dL Hct (37.0-47.0) % MCV (81-99) fL MCH (28.0-34.0) pg MCHC (30.0-36.0) g/dL RDW (12.1-15.1) % Plt Count (130-400) 10^3/c mm MPV (7.4-10.4) fL Neut % (Auto) % Lymph % (Auto) % [place] % (Auto) % Eos % (Auto) % Baso % (Auto) % Neut # (Auto) (1.8-7.7) 10^3/u L Lymph # (Auto) (0.8-4.8) 10^3/u L [place] # (Auto) (0.2-0.9) 10^3/u L Eos # (Auto) (0.0-0.8) 10^3/u L Baso # (Auto) (0.0-0.1) 10^3/u L Nucleated RBC % (a uto) % Nucleated RBCs # /100WBC Specimen Type Sample Site ABG pH (7.35-7.45) ABG pCO2 (35-45) mmHg ABG pO2 (80.0-100.0) mmH g ABG HCO3 (22-26) mmol/L ABG O2 Saturation ABG Base Excess (-2.0-2.0) mmol/ L Dat Test A-a O2 Gradient (5-10) mmHg Hematocrit (37-47) % Hgb O2 Saturation (95-100) % Carboxyhemoglobin (0.4-20.1) %THgb Methemoglobin (0.4-1.5) % Total Hemoglobin (12-16) g/dL Sodium (131-143) mmol/L Potassium (3.5-5.0) mmol/L Glucose (70-115) mg/dL Ionized Calcium (1.1-1.4) mmol/L O2 Delivery Device O2 Liters/Min % FiO2 % School Business Manager ID Chloride (98-107) mmol/L Carbon Dioxide (22-29) mmol/L Anion Gap (5-19) BUN (8-23) mg/dL Creatinine (0.5-0.9) mg/dL Calculated Osmolal ity (285-295) mOsm/k g Lactic Acid 0.9 (0.5-2.2) mmol/L Calcium (8.5-10.5) mg/dL Total Bilirubin (0.15-1.2) mg/dL AST (0-32) U/L ALT (0-33) U/L Alkaline Phosphata se (35-105) IU/L Total Protein (6.6-8.7) g/dL Albumin (3.5-5.2) g/dL Globulin (1.3-4.6) g/dL Lipase (13-60) U/L Urine Color Yellow (Yellow) Urine Appearance Cloudy (CLEAR) Urine pH 7 (5-7) Ur Specific Gravit y 1.010 (1.005-1.030) Urine Protein Neg (Negative) Urine Glucose (UA) Norm (Normal) Urine Ketones 1+ H (Negative) Urine Blood 3+ H (Negative) Urine Nitrate Negative (Negative) Urine Bilirubin 2+ H (NEGATIVE) Urine Urobilinogen Norm (Negative) mg/dL Ur Leukocyte Avis ase Negative (Negative) Urine RBC 80-100 H (0-2) /hpf Urine WBC 25-40 H (0-5) /hpf Ur Squamous Epith Cells 0-4 H (0-5) Urine Bacteria 4+ H (NONE) Influenza Type A A g Negative (Negative) POC Influenza B Ag Negative (Negative) Discharge Plan Discharge Patient Disposition: Admitted As Inpatient Admit Provider: David Christian Clinical Impression: Aspiration pneumonia, T12 compression fracture, Dehydration, Malnourished, Primary lung squamous cell carcinoma Condition: Stable Interventions: ED Discharge Assessment Last Done: 08/13/19 22:05 Discharge Date/Time: 08/13/19 22:07 Coding Level of Care Code ED [employer] Supervisor for Saud Nieto
--- NOTE | 2019-08-13 16:38 | ECG_ITS ---
Measurements Intervals [place] Rate: 96 P: 78 [place]: 133 QRS: 33 QRSD: 86 T: 69 QT: 333 QTc: [address] DEPRESSION [0.05+ mV ST DEPRESSION] No previous ECG available for comparison Electronically Signed On 08-14-2019 8:30:13 CDT by Silvia Ny M.D. [email or web address]
--- NOTE | 2019-08-13 16:38 | XRR_ITS ---
PROCEDURE INFORMATION: Exam: XR Chest, 1 View Exam date and time: 08/13/2019 4:39 PM Age: 78 years old Clinical indication: Cough; Patient HX: AMS; Additional info: Dyspnea/cough TECHNIQUE: Imaging protocol: XR of the chest Views: 1 view. COMPARISON: No relevant prior studies available. FINDINGS: Tubes, catheters and devices: Right Pwlzeh-D-Alsv tip over the mid SVC. Lungs: 7.0 cm masslike consolidation in the central left lung. Patchy airspace opacities right lung base. Mild atelectasis in the left base. Pleural space: Unremarkable. No pleural effusion. No pneumothorax. Heart/Mediastinum: Unremarkable. No cardiomegaly. Bones/joints: Unremarkable. XR/XR chest 1V portable [id number] IMPRESSION: 1. Masslike consolidation in the central left lung could represent pneumonia or a neoplastic process. Follow-up with a CT chest is recommended. 2. Aspiration or pneumonia in the right lung base.
[2019-08-13 17:15] LABS: ABG PCO2 42.2 mmHg (35-45); ABG PH Result 7.48 (7.35-7.45); Alveolar-Arterial Oxygen Gradi 108.9 mmHg (5-10); Base Excess ABG 6.9 mmol/L (-2.0-2.0); Blood Gas Operator Identificat amh; Blood Gas Sample Site Brachial, left; Blood Gas Sample Type Arterial; Carboxyhemoglobin 1.4 %THgb (0.4-20.1); HCO3 ABG 31.2 mmol/L (22-26); HGB O2 Sat 91.1 % (95-100); Ionized Calcium Level - ABG 1.2 mmol/L (1.1-1.4); Methemoglobin 0.7 % (0.4-1.5); Oxygen Device NC; Oxygen Saturation ABG 93.1; PO2 ABG 61.4 mmHg (80.0-100.0); Potassium Level - ABG 3.3 mmol/L (3.5-5.0); Total Hemoglobin 10.8 g/dL (12-16)
[2019-08-13 17:41] LABS: Basophils % 0.6 %; Hematocrit 30.6 % (37.0-47.0); Hemoglobin 9.2 g/dL (11.5-15.3); Lymphocytes # 0.2 10^3/uL (0.8-4.8); Lymphocytes % 2.5 %; Mean Corpuscular HGB Conc 30.1 g/dL (30.0-36.0); Mean Corpuscular Hemoglobin 28.1 pg (28.0-34.0); Mean Corpuscular Volume 93.6 fL (81-99); Mean Platelet Volume 10.2 fL (7.4-10.4); Monocytes # 0.1 10^3/uL (0.2-0.9); Monocytes % 1.9 %; Neutrophils # 6.4 10^3/uL (1.8-7.7); Neutrophils % 93.5 %; Nucleated Red Blood Cells % 0 %; Platelet Count 204 10^3/cmm (130-400); Red Blood Count 3.27 10^6/uL (4.1-5.3); Red Cell Distribution Width 15.6 % (12.1-15.1); White Blood Count 6.9 10^3/uL (4.0-10.0)
[2019-08-13 18:00] LABS: Alanine Aminotransferase 17 U/L (0-33); Albumin Level 2.6 g/dL (3.5-5.2); Alkaline Phosphatase 96 IU/L (35-105); Anion Gap 13.4 (5-19); Aspartate Amino Transferase 21 U/L (0-32); Blood Urea Nitrogen 12 mg/dL (8-23); Calcium 9.2 mg/dL (8.5-10.5); Carbon Dioxide 27 mmol/L (22-29); Chloride 96 mmol/L (98-107); Globulin 3.6 g/dL (1.3-4.6); Glucose 114 mg/dL (65-115); Lipase 11 U/L (13-60); Osmolality Calculated 273 mOsm/kg (285-295); Potassium 3.4 mmol/L (3.5-5.1); Sodium 133 mmol/L (136-145); Total Bilirubin 1.4 mg/dL (0.15-1.2); Total Protein 6.2 g/dL (6.6-8.7)
[2019-08-13] MEDS: piperacillin-tazobactam 3.375 GM in sodium chloride 0.9% (plus) 50 ML IV (18:00)
[2019-08-13 18:25] LABS: Lactic Sepsis W/Reflex 0.9 mmol/L (0.5-2.2)
[2019-08-13] MEDS: levofloxacin-dextrose 5 % 750 MG/150 ML PREMIX 150 MG IV (18:37)
[2019-08-13] MEDS: vancomycin 1,000 MG in sodium chloride 0.9% 250 ML 250 MG IV (19:43)
[2019-08-13 19:46] LABS: Influenza A by IFA Negative (Negative); Influenza B by IFA Negative (Negative)
[2019-08-13 19:53] LABS: Add Urine Culture? Yes; Add Urine Microscopic? YES; Bacteria Urine 4+; Bilirubin Urine 2+ (NEGATIVE); Blood Urine 3+ (Negative); Glucose Urine UA Norm (Normal); Ketones Urine 1+ (Negative); Leukocyte Esterase Urine Negative (Negative); Nitrate Urine Negative (Negative); Protein Urine Neg (Negative); RBC Urine 80-100 /hpf (0-2); Squamous Epithelial Cell Urine 0-4 (0-5); Urine Appearance Cloudy (CLEAR); Urine Color Yellow (Yellow); Urobilinogen Urine Norm (Negative); WBC Urine 25-40 /hpf (0-5); pH Urine 7 (5-7)
--- NOTE | 2019-08-13 20:00 | CTR_ITS ---
PROCEDURE INFORMATION: Exam: CT Angiography Chest With Contrast Exam date and time: 08/13/2019 8:29 PM Age: 78 years old Clinical indication: Chest pain; Type not specified; Prior surgery; Surgery date: 1-6 months; Surgery type: Port; Patient HX: HX of lung CA C/O cp w difficulty breathing TECHNIQUE: Imaging protocol: Computed tomographic angiography of the chest with intravenous contrast. 3D rendering: MIP and/or 3D reconstructed images were created by the technologist. Total DLP: 504.7 mGy-cm Radiation optimization: All CT scans at this facility use at least one of these dose optimization techniques: automated exposure control; mA and/or kV adjustment per patient size (includes targeted exams where dose is matched to clinical indication); or iterative reconstruction. Contrast material: OMNI 350; Contrast volume: 95 ml; Contrast route: 20G; COMPARISON: CR (CHEST, ) 08/13/2019 4:40 PM FINDINGS: Pulmonary arteries: Normal. No pulmonary emboli. Aorta: Unremarkable. No aortic aneurysm. No aortic dissection. Lungs: Severe centrilobular emphysema. 5.2 cm spiculated mass in the suprahilar left upper lobe with interlobular septal thickening extending from this mass to the peripheral lateral pleura. Patchy airspace consolidation in both lower lobes, right greater than left. Focal atelectasis or scar in the posterior right upper lobe. Pleural space: Trace pleural effusions. Heart: Unremarkable. No cardiomegaly. No pericardial effusion. Gallbladder and bile ducts: Cholecystectomy. Spleen: 0.8 cm low-density lesion in the posterior spleen. Lymph nodes: Mediastinal and hilar lymph nodes measuring up to 1.0 cm short axis. Bones/joints: Severe T12 compression fracture. Soft tissues: Unremarkable. CT/CT angio chest PE protcl [id number] IMPRESSION: 1. No evidence for pulmonary embolus. 2. 5.2 cm spiculated left upper lobe mass, consistent with primary lung malignancy. 3. Lower lobe pneumonia versus aspiration, right greater than left. 4. Mediastinal and hilar lymph nodes may be reactive, however metastatic disease cannot be entirely excluded. 5. Severe emphysema. Radiation Dose CTDIVOL = (mGy): DLP = 504.7 (mGy-cm)
--- NOTE | 2019-08-13 20:00 | P.HP_ITS ---
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 Her last chemotherapy session was on Thursday, home health service nurse saw her today and because of her confusion Dr. Jovel was contacted who recommended evaluation in the ER. Daughter is stating that after her chemo session she mostly feels nauseous and today she gave her 1 mg of lorazepam and stool softeners. Temperature checked by the home health nurse was 99.5, Osborne catheter was draining clear yellow urine. Patient was complaining of chills, constipation and lethargy, she was communicative but drowsy. Patient is stating that her cough is chronic she has not noticed increased intensity in her cough or sputum production, she is denying orthopnea, PND, but is endorsing chills and extreme lethargy. About 3 to 4 days ago she started experiencing urinary incontinence at that time Osborne catheter was placed, patient and her daughters are not aware if she was diagnosed with metastases to brain or spine. Patient is endorsing low appetite, weight loss, constipation without obstipation, abdominal pain. She is not endorsing any lower back pain. Patient and her daughters are stating that for last couple of days she has been so weak that they have noticed that every time she is trying to eat or drink she would cough and choke. Diagnostics in ER revealed soft blood pressure which improved with fluid resusc itation, clear yellow urine, patient was afebrile, non-tachycardic, saturating well on 4 L nasal cannula She denied any lower back pain or leg pain When I interviewed her she stated that her breathing is better Chest x-ray concerning for right lower lobe pneumonia I requested CTA chest which did not reveal PE but showed T12 compression fracture Review of Systems Const: Reports: chills, body aches, fatigue and malaise; Denies: fever Eyes: Denies: change in vision ENMT: Denies: throat pain Card: Denies: chest pain or edema Resp: Reports: shortness of breath and non-productive cough; Denies: productive cough, pain on inspiration or coughing up blood GI: Reports: constipation and cramping; Denies: abdominal pain, nausea, vomiting or diarrhea : Denies: flank pain or difficulty urinating Musc: Denies: neck pain or back pain Skin/Breast: Denies: rash Neuro: Denies: headache, weakness in extremities or slurred speech Psych: Reports: sleeping more Endo: Denies: excessive urination Nelson/Lymph: Denies: easy bruising All/Imm: Denies: hives Medications/Allergies Allergies Allergy/AdvReac Type Severity Reaction Status Date / Time codeine Allergy Unknown Unknown Verified 08/13/19 23:10 PFSH Acute PFSH: Medical History (Updated 08/13/19 @ 23:13 by David Christian MD) Chronic back pain Chronic kidney disease, stage II (mild) COPD (chronic obstructive pulmonary disease) Degenerative joint disease Dementia Depression Lung cancer Squamous cell cancer Lung mass Oxygen dependent Surgical History History of appendectomy Hx of cholecystectomy S/P ERCP Tubal ligation status Family History Brother Cancer Lung cancer and diabetes Mother Psychiatric illness Schizophrenia Sister Hypertension Other Diabetes Social History Smoking and tobacco status: former smoker Quit status (tobacco): has quit using tobacco Former quit date comment: But smoking 4 years ago Alcohol intake: current Alcohol intake frequency: few times a month Alcohol type: wine Substance/Drug Use: never Household members: family Housing: House Vitals/I&O/Wt Last Vital Signs Temp 98.2 F 08/13/19 16:10 Pulse 98 08/13/19 16:10 Resp 28 H 08/13/19 16:10 BP 99/61 08/13/19 16:10 Pulse Ox 83 L 08/13/19 16:10 Weight last 48 hrs Weight 65.771 kg Physical Exam Narrative: EXAM NARRATIVE: Elderly frail female seems very dehydrated, sitting in her bed without active respiratory distress saturating 98% on 4 L nasal cannula She has pursed lip breathing without any cyanosis or use of accessory muscles S1, S2 no sinus tachycardia or signs of heart failure Bilateral bronchial breath sounds right greater than left, no active wheezing, Abdomen soft, nontender bowel sounds present bilaterally without any tenderness Alert oriented x3, able to comprehend my questions and answer appropriately, nonfocal neurological exam Leg raise test positive Osborne catheter draining clear yellow urine Skin does not show any signs of ischemia gangrene or ulcer Data : 08/13/19 17:18 08/13/19 17:18 A&P Assessment and plan (1) Aspiration pneumonia: Status: Acute Code(s): J69.0 - Pneumonitis due to inhalation of food and vomit (2) T12 compression fracture: Status: Acute Code(s): S22.080A - Wedge compression fracture of T11-T12 vertebra, initial encounter for closed fracture (3) Dehydration: Status: Acute Code(s): E86.0 - Dehydration (4) Malnourished: Status: Acute Code(s): E46 - Unspecified protein-calorie malnutrition (5) Primary lung squamous cell carcinoma: Status: Acute Code(s): C34.90 - Malignant neoplasm of unspecified part of unspecified bronchus or lung Additional A&P Information Acute hypoxic respiratory failure secondary to aspiration pneumonia Currently saturating well on 4 L nasal cannula CTA chest rule out PE Considering immunocompromised state I would use vancomycin, cefepime and Levaquin BAL was positive for gram-positive cocci with chains and clusters Does not meet sepsis criteria T12 compression fracture Patient has chronic indwelling catheter, she is constipated, She is not complaining of lower back pain Currently pain management with oral analgesics Antispasmodics Highly doubt vertebral augmentation procedure candidacy, kindly reevaluate if she would benefit from a neurosurgery consult Malnourished: She has anorexia with weight loss I will keep her n.p.o. until speech evaluation in the morning Would need supplemental diet Squamous cell cancer of lung Patient is currently getting radiotherapy 4 days a week and chemotherapy mostly on Fridays Has last session was yesterday CODE STATUS Her previous records have shown DNR/DNI status, patient herself is endorsing DNR/DNI Daughters at the bedside discussed goals of care with her mother one more time, they are okay with intubation for respiratory distress but in case of cardiac arrest they do not want any chest compressions but okay with intubations Kindly readdress goals of care in the morning one more time (daughters left before the results of CTA chest) Attestations Medical Necessity Statement*: Anticipating stay in the hospital to cross more than 2 midnights for management of aspiration pneumonia, needs closer monitoring for immunocompromise state and active pneumonia Time Spent in Patient Care: 60 Coding Level of Care Code Acute Passenger Attendant for Rjg Fwd Diagnoses Aspiration pneumonia J69.0 T12 compression fracture S22.080A Dehydration E86.0 Malnourished E46 Primary lung squamous cell carcinoma C34.90
[2019-08-13] MEDS: iohexol 350 mg/mL 100 mL Btl IV (20:48)
[2019-08-13] MEDS: sodium chloride 0.9% 1,000 ML 100 ML IV (23:11)
[2019-08-13] MEDS: dextrose 5%-sod chloride 0.45% 1,000 ML 30 ML IV (23:37)
[2019-08-13] MEDS: enoxaparin 40 mg/0.4 mL Syringe SUBCUT (23:37)
[2019-08-14] VITALS (8 sets, daily range): BP systolic 91–113; BP diastolic 52–69; PULSE 89–103; RESP 16–31; TEMP 36.6–37; O2SAT 90–98
--- NOTE | 2019-08-14 00:52 | PC.PHAR ---
Pharmacokinetic dosing service Date: 08/14/19 Time: 99 Objective: Patient: Ora De Leon Floor: 258-1 Age: 79 yo Serum creatinine: 0.4 mg/dL Height: 66.0 Inches Weight (kg): 65.771 Diagnosis: Relevant medical/social history: Cultures and sensitivities: Other labs: Assessment: IBW (kg): 59.30 Dosing wt(kg): 65.771 Estimated Creatinine clearance (ml/min): 105.0 CRCL method: Cockcroft and Gault using ibw(default). Drug selected: Vancomycin Loading dose (mg): 0 Vd (liters): 59.2 (factor used: 0.9 L/kg) Oz (hr-1): 0.092 Half life (hrs): 7.53 Recommended dose: 1250 mg Interval: 12 hrs Infusion time (hrs): 1.5 Predicted peak (mcg/mL): 29.5 Predicted trough (mcg/mL): 11.23 Total body weight is being used for vancomycin dosing. Renal function is stable [ ] /unstable [ ] Recommendations: Give Vancomycin 1250 mg q 12 hrs with an expected Cpeak of 29.5 mcg/ml and an expected Ctrough of 11.23 mcg/ml Renal dosing of other antibiotics (review renal dosing of other medications and list guidelines here): Thank you for the consult, will continue to follow. Signature: July Boucher [facility]
[2019-08-14] MEDS: piperacillin-tazobactam 3.375 GM in sodium chloride 0.9% (plus) 50 ML IV ×3 (01:12→17:04)
[2019-08-14 05:29] LABS: Basophils % 0.2 %; Eosinophils % 0.2 %; Hematocrit 26.2 % (37.0-47.0); Hemoglobin 8.1 g/dL (11.5-15.3); Lymphocytes # 0.2 10^3/uL (0.8-4.8); Lymphocytes % 2.9 %; Mean Corpuscular HGB Conc 30.9 g/dL (30.0-36.0); Mean Corpuscular Hemoglobin 28.2 pg (28.0-34.0); Mean Corpuscular Volume 91.3 fL (81-99); Mean Platelet Volume 10.6 fL (7.4-10.4); Monocytes # 0.1 10^3/uL (0.2-0.9); Neutrophils # 5.2 10^3/uL (1.8-7.7); Neutrophils % 93.3 %; Nucleated Red Blood Cells % 0 %; Platelet Count 161 10^3/cmm (130-400); Red Blood Count 2.87 10^6/uL (4.1-5.3); Red Cell Distribution Width 15.6 % (12.1-15.1); White Blood Count 5.6 10^3/uL (4.0-10.0)
[2019-08-14] MEDS: levoFLOXacin 750 mg Tablet PO (05:41)
[2019-08-14 05:47] LABS: Alanine Aminotransferase 13 U/L (0-33); Albumin Level 2.5 g/dL (3.5-5.2); Alkaline Phosphatase 81 IU/L (35-105); Anion Gap 10.4 (5-19); Aspartate Amino Transferase 15 U/L (0-32); Blood Urea Nitrogen 10 mg/dL (8-23); Calcium 8.9 mg/dL (8.5-10.5); Carbon Dioxide 31 mmol/L (22-29); Chloride 99 mmol/L (98-107); Globulin 2.9 g/dL (1.3-4.6); Glucose 99 mg/dL (65-115); Osmolality Calculated 280 mOsm/kg (285-295); Potassium 3.4 mmol/L (3.5-5.1); Sodium 137 mmol/L (136-145); Total Bilirubin 0.9 mg/dL (0.15-1.2); Total Protein 5.4 g/dL (6.6-8.7)
--- NOTE | 2019-08-14 08:50 | PC.SOCIAL ---
Notified Dr Young that daughter would like a call and update on her care. He agreed to do so.
--- NOTE | 2019-08-14 08:52 | PC.SOCIAL ---
Notified Kel at [facility] that pt is currently in the hospital
--- NOTE | 2019-08-14 09:29 | P.PN_ITS ---
Subjective Subjective: Interval history: The patient states that she has been having a lot of cough overnight and would like to have something to suppress it at times. The patient says that the phlegm is yellow and thick in color. She denies any pains at this time. Vitals/I&O/Wt Last Vital Signs Temp 97.8 F 08/14/19 08:00 Pulse 94 08/14/19 08:00 Resp 20 H 08/14/19 08:00 BP 91/58 08/14/19 08:00 Pulse Ox 93 08/14/19 08:00 08/13/19 08/14/19 08/14/19 22:59 06:59 14:59 Intake Total 2423.13 / 2423.13 Output Total 1100 / 1100 Balance 2423.13 / 2423.13 -1100 / 1323.13 Weight last 48 hrs Weight 145 lb Physical Exam Narrative: EXAM NARRATIVE: General: Alert and oriented, however possibly c onfused. Mouth: Moist mucous membranes without signs of thrush Neck: No concerning cervical lymphadenopathy Cardiac: Regular rate and rhythm without murmurs Lungs: Decreased air entry bilaterally without significant wheezes or rhonchi. Mild crackles noted in the left base. Abdomen: Soft, nontender without hepatosplenomegaly Extremities: No edema Data : 08/14/19 04:44 08/14/19 04:44 Micro: Microbiology 08/13/19 18:10 Bacterial Antigens - Final Urine,Voided 08/14/19 00:23 Blood Culture - Preliminary Blood SPECIMEN COLLECTED 08/14/19 00:19 Blood Culture - Preliminary Blood SPECIMEN COLLECTED A&P Assessment and plan (1) Primary lung squamous cell carcinoma: Status: Acute Code(s): C34.90 - Malignant neoplasm of unspecified part of unspecified bronchus or lung (2) Dehydration: Status: Acute Code(s): E86.0 - Dehydration (3) Aspiration pneumonia: Status: Acute Code(s): J69.0 - Pneumonitis due to inhalation of food and vomit (4) T12 compression fracture: Status: Acute Code(s): S22.080A - Wedge compression fracture of T11-T12 vertebra, initial encounter for closed fracture Additional A&P Information 1. Left lower lobe pneumonia - Continue with vancomycin, Zosyn and Levaquin for treatment of pneumonia. The patient is currently needing 4 L of oxygen via nasa l cannula and is tachypneic, however maintaining oxygen levels. The patient will likely need 2 to 3 days of IV antibiotics prior to discharge. Okay to give cough suppressants as needed. 2. COPD -the patient has COPD, however no significant wheezing at this time. I will hold off on steroids for now. 3. Primary lung squamous cell carcinoma -the patient has been receiving radiation for this. Continue with treatment schedule. 4. Hypokalemia - replace by mouth today. Recheck levels tomorrow. 5. Hypoxia -continue with oxygen via nasal cannula. 6. Anemia -the patient's hemoglobin has dropped, and this is likely secondary to rehydration. We will check iron levels and vitamin B12 levels in the morning and follow-up to see if these are low. The patient's daughter and DPOA said that it would be okay for her to receive a blood transfusion if it were to be necessary. If her hemoglobin continues to drop, this could be possible. Janay would like an update with any changes. Her number is [phone]. Her sister Carol can be reached at [phone] if needed. 7. Prophylaxis -Lovenox Attestations Medical Necessity Statement*: The patient continues need inpatient therapy for IV antibiotics secondary to pneumonia with hypoxia. Her stay will cross 2 midnights. Coding Level of Care Code Acute Assistant Infant Toddler Teacher for Saud Nieto Diagnoses Primary lung squamous cell carcinoma C34.90 Dehydration E86.0 Aspiration pneumonia J69.0 T12 compression fracture S22.080A
[2019-08-14 11:10] LABS: Iron 91 ug/dL (37-145); Percent Saturation 73.3 % (20-50); Total Iron Binding Capacity 124 mcg/dl; Unsaturated Iron Binding 33 ug/dL (112-347)
[2019-08-14 11:25] LABS: Vitamin B12 660 pg/mL (232-1245)
[2019-08-14 19:25] LABS: Vancomycin Trough 14.5 ug/mL (10-15)
[2019-08-14] MEDS: mirtazapine 15 mg Tablet PO (20:42)
[2019-08-15] VITALS (12 sets, daily range): BP systolic 100–123; BP diastolic 59–69; PULSE 85–99; RESP 16–28; TEMP 36.6–37.7; O2SAT 90–98
[2019-08-15] MEDS: guaiFENesin 100 mg/5 mL UDC 10 mL 400 MG PO (00:17)
[2019-08-15] MEDS: enoxaparin 40 mg/0.4 mL Syringe SUBCUT ×2 (00:17→20:20)
[2019-08-15] MEDS: piperacillin-tazobactam 3.375 GM in sodium chloride 0.9% (plus) 50 ML IV ×3 (02:59→18:06)
[2019-08-15] MEDS: levoFLOXacin 750 mg Tablet PO (05:48)
[2019-08-15] MEDS: dextrose 5%-sod chloride 0.45% 1,000 ML 30 ML IV (05:48)
[2019-08-15 06:37] LABS: Alanine Aminotransferase 14 U/L (0-33); Albumin Level 2.7 g/dL (3.5-5.2); Alkaline Phosphatase 116 IU/L (35-105); Anion Gap 13.4 (5-19); Aspartate Amino Transferase 19 U/L (0-32); Blood Urea Nitrogen 6 mg/dL (8-23); Carbon Dioxide 29 mmol/L (22-29); Chloride 99 mmol/L (98-107); Globulin 2.3 g/dL (1.3-4.6); Glucose 115 mg/dL (65-115); Magnesium 1.9 mg/dL (1.7-2.3); Osmolality Calculated 283 mOsm/kg (285-295); Phosphorus 2.6 mg/dL (2.5-4.5); Potassium 3.4 mmol/L (3.5-5.1); Sodium 138 mmol/L (136-145); Total Bilirubin 1.2 mg/dL (0.15-1.2)
[2019-08-15 07:04] LABS: Basophils % 0.7 %; Eosinophils % 0.5 %; Hematocrit 26.7 % (37.0-47.0); Hemoglobin 8.2 g/dL (11.5-15.3); Lymphocytes # 0.2 10^3/uL (0.8-4.8); Lymphocytes % 3.8 %; Mean Corpuscular HGB Conc 30.7 g/dL (30.0-36.0); Mean Corpuscular Hemoglobin 28.6 pg (28.0-34.0); Monocytes # 0.2 10^3/uL (0.2-0.9); Monocytes % 3.8 %; Neutrophils # 4.9 10^3/uL (1.8-7.7); Neutrophils % 87.9 %; Nucleated Red Blood Cells % 0 %; Platelet Count 160 10^3/cmm (130-400); Red Blood Count 2.87 10^6/uL (4.1-5.3); Red Cell Distribution Width 15.8 % (12.1-15.1); White Blood Count 5.5 10^3/uL (4.0-10.0)
[2019-08-15] MEDS: benzonatate 100 mg Capsule PO ×4 (08:01→20:20)
--- NOTE | 2019-08-15 12:20 | PC.NURSE ---
Dr. Alfred speaking with patient's daughter- Janay (phone # [phone]) at this time. is requesting that the patient be tested for the COVIID-19. He will be ordering the test and informed the daughter at this time. Dr. Zuleta discussed patient's code status with patient's daughter at this. They will leave it at is for now. Patient's daughter transferred into patient's room to speak with her mother at this time.
--- NOTE | 2019-08-15 12:38 | PM.PN ---
Subjective Subjective: Interval history: No acute events overnight other than the patient states that she has been having a lot of cough overnight and would like to have something to suppress it at times. Patient's detail were discussed with her daughter who is also her DPOA she states patient has been having on and off fever for last 7 to 10 days for which she was in the ER before as well because of urinary incontinence and the catheter was placed patient started having difficulty in breathing for 4 days prior to coming to the hospital along with occasional fevers. Patient did have a sick contact as her niece who is been having sniffles and possible fever On examination patient is sitting comfortably in bed on 4 L nasal cannula looking little tachypneic, complaining of nausea but no fever. T-max in last 24-hour 99.6 Fahrenheit. Labs noted Vitals/I&O/Wt Last Vital Signs Temp 98.2 F 08/15/19 11:16 Pulse 85 08/15/19 11:16 Resp 16 08/15/19 11:16 BP 106/69 08/15/19 11:16 Pulse Ox 93 08/15/19 11:16 08/14/19 08/15/19 08/15/19 22:59 06:59 14:59 Intake Total 520 / 1180 905.5 / 2085.5 300 / 300 Output Total 1800 / 1800 Balance 520 / 1180 -894.5 / 285.5 300 / 300 Weight last 48 hrs Weight 65.771 kg Physical Exam Narrative: EXAM NARRATIVE: Elderly frail female seems very dehydrated, sitting in her bed, mildly tachypneic, saturating 98% on 4 L nasal cannula She has pursed lip breathing without any cyanosis or use of accessory muscles S1, S2 no sinus tachycardia or signs of heart failure Bilateral bronchial breath sounds right greater than left, no active wheezing, Abdomen soft, nontender bowel sounds present bilaterally without any tenderness Alert oriented x3, able to comprehend my questions and answer appropriately, nonfocal neurological exam Leg raise test positive Osborne catheter draining clear yellow urine Skin does not show any signs of ischemia gangrene or ulcer Data : 08/15/19 06:15 08/15/19 06:02 Micro: Microbiology 08/13/19 18:10 Urine Culture - Preliminary Urine,Clean Catch Gram Negative Rods 08/14/19 00:23 Blood Culture - Preliminary Blood NEGATIVE TO DATE 08/14/19 00:19 Blood Culture - Preliminary Blood NEGATIVE TO DATE A&P Assessment and plan (1) Respiratory failure with hypoxia: Status: Acute Code(s): J96.91 - Respiratory failure, unspecified with hypoxia (2) Right lower lobe pneumonia: Status: Acute Code(s): J18.9 - Pneumonia, unspecified organism (3) Primary lung squamous cell carcinoma: Status: Acute Code(s): C34.90 - Malignant neoplasm of unspecified part of unspecified bronchus or lung (4) T12 compression fracture: Status: Acute Code(s): S22.080A - Wedge compression fracture of T11-T12 vertebra, initial encounter for closed fracture (5) Urinary incontinence: Status: Acute Code(s): R32 - Unspecified urinary incontinence (6) Protein-energy malnutrition: Status: Acute Code(s): E46 - Unspecified protein-calorie malnutrition (7) Dehydration: Status: Acute Code(s): E86.0 - Dehydration Additional A&P Information Acute hypoxic respiratory failure: Secondary to combination of squamous cell lung cancer and right lower lobe pneumonia in setting of emphysema. Currently saturating well on 4 L nasal cannula. Given the immunocompromise state along with sick contact in niece, low-grade temperature, CT findings will check for COVID 19. Continue with vancomycin, Zosyn, levofloxacin at current dose. All renally dosed. Sputum culture awaited. Have asked respite therapist for induction. Urine for Legionella. We will de-escalate antibiotics as per the culture results. Precautions tIll COVID 19 results come back. Budesonide twice daily, change duo nebs to standing rather than as needed. No steroids required as patient does not have extensive wheeze. Oxygen supplementation keeping saturation over 90%. Check probnp and ECHO given chemo and radiation therapy to r/o cardiomyopathy. Urinary incontinence: Could be related to history of T12 compression fracture but cannot rule out metastases to brain, spinal cord. Once the result for COVID 19 counts negative can plan for imaging of brain and spinal cord. Till then continue with urinary catheter, pain management with oral analgesics and antispasmodics. Malnourished/severe protein energy malnutrition: Check prealbumin She has anorexia with weight loss Diet advanced to soft mechanical diet as per swallow evaluation. Add Ensure for supplementation diet. Squamous cell cancer of lung: Most recent chemotherapy on August 09 and radiation therapy on August 11. Patient is currently getting radiotherapy 4 days a week and chemotherapy mostly on Fridays Has last session was yesterday CODE STATUS Her previous records have shown DNR/DNI status, patient herself is endorsing DNR/DNI Daughters at the bedside discussed goals of care with her mother one more time, they are okay with intubation for respiratory distress but in case of cardiac arrest they do not want any chest compressions but okay with intubations Attestations Medical Necessity Statement*: hypoxic resp failure, lung cancer, Time Spent in Patient Care: Greater than 35 minutes Coding Level of Care Code Acute Parking Inspector for g Fwd Diagnoses Respiratory failure with hypoxia J96.91 Right lower lobe pneumonia J18.9 Primary lung squamous cell carcinoma C34.90 T12 compression fracture S22.080A Urinary incontinence R32 Protein-energy malnutrition E46 Dehydration E86.0
[2019-08-15 13:08] LABS: Procalcitonin 0.23 ng/mL (0-0.5)
[2019-08-15] MEDS: ipratropium-albuterol 3 mL Neb INHALATION ×2 (14:07→20:54)
--- NOTE | 2019-08-15 15:26 | PC.RESP ---
Patient given information on Pulmonary Rehab.
--- NOTE | 2019-08-15 16:24 | USCV_ITS ---
Haley Ora Age: 79 Gender: F : 1940 Exam Date: 08/15/2019 16:58 Ordering Phys: Kushal Alfred MD Technologist: Tameka Tan Exam Location: [facility] – [place] Indication: CARDIOMEGALY BP: 106 / 65 HR: 91 Rhythm: Sinus Technical Quality: Adequate MEASUREMENTS (Male / Female) Normal Values 2D ECHO LV Diastolic Diameter PLAX 3.4 cm 4.2 - 5.9 / 3.9 - 5.3 cm LV Systolic Diameter PLAX 2.5 cm LV Chamber Size 2.6 cm IVS Diastolic Thickness 0.9 cm 0.6 - 1.0 / 0.6 - 0.9 cm IVS Systolic Thickness 1.3 cm LVPW Diastolic Thickness 1.6 cm 0.6 - 1.0 / 0.6 - 0.9 cm LVPW Systolic Thickness 1.9 cm RV Chamber Size 2.8 cm LVOT Diameter 2.0 cm LV Ejection Fraction 2D Teich 53.3 % LV Ejection Fraction MOD 2C 81.1 % LV Ejection Fraction 2C AL 83.1 % LA Diameter 3.8 cm LA Width 2.7 cm LA Height 3.3 cm RA Width 2.2 cm RA Height 2.9 cm Aorta at Sinotubular Diameter 2.5 cm M-MODE LV Diastolic Diameter MM 5.6 cm 4.2 - 5.9 / 3.9 - 5.3 cm LV Systolic Diameter MM 3.2 cm LV Ejection Fraction MM Teich 73.5 % IVS Diastolic Thickness MM 1.1 cm 0.6 - 1.0 / 0.6 - 0.9 cm IVS Systolic Thickness MM 1.2 cm LVPW Diastolic Thickness MM 0.9 cm 0.6 - 1.0 / 0.6 - 0.9 cm LVPW Systolic Thickness MM 1.3 cm Aortic Annulus Diameter 2.3 cm LA Ao Ratio MM 1.6 MV E Point Septal Separation 2.1 cm DOPPLER AV Peak Velocity 161.0 cm/s LVOT Peak Velocity 139.0 cm/s AV Area Cont Eq vti 3.2 cm squared AV Area Cont Eq pk 2.8 cm squared MV Area PHT 3.7 cm squared Mitral E to A Ratio 0.8 MV E' Velocity 13.0 cm/s Mitral E to MV E' Ratio 7.9 Mitral E to LV E' Lateral Ratio 7.4 Mitral E to LV E' Septal Ratio 8.6 TR Peak Velocity 261.0 cm/s TR Peak Gradient 27.3 mmHg TV Peak E Velocity 56.0 cm/s Right Atrial Pressure 3.0 mmHg Pulmonary Artery Systolic Pressu 30.2 mmHg PV Peak Velocity 70.0 cm/s RV Acceleration Time 0.2 s RV Ejection Time 0.4 s RV AcT/ET 0.6 FINDINGS Left Ventricle Normal left ventricular cavity size. Normal left ventricular systolic function. No regional wall motion abnormalities. Left ventricular ejection fraction is estimated at 65 %. Grade I/IV diastolic dysfunction (abnormal relaxation filling pattern), normal to mildly elevated filling pressures. Right Ventricle The right ventricle is normal in size and function. Right Atrium The right atrium is normal in size. Left Atrium The left atrium is normal in size. Mitral Valve Structurally normal mitral valve without significant stenosis or prolapse. There is no mitral regurgitation. Aortic Valve Structurally normal aortic valve without significant sclerosis or stenosis. There is no aortic regurgitation. Tricuspid Valve Structurally normal tricuspid valve without significant stenosis or regurgitation. Pulmonary artery systolic pressure is normal. Pulmonic Valve Structurally normal pulmonic valve without significant stenosis. There is no pulmonic regurgitation. Pericardium Normal pericardium without effusion. Aorta Normal ascending aorta dimension. CONCLUSIONS 1-Normal left ventricular cavity size. Normal left ventricular systolic function. No regional wall motion abnormalities. Left ventricular ejection fraction is estimated at 65 %. Grade I/IV diastolic dysfunction (abnormal relaxation filling pattern), normal to mildly elevated filling pressures. 2-There is no pericardial effusion. 3-No significant valve abnormalities. 4-Pulmonary artery systolic pressure is within normal limits. 5-There are no prior echocardiogram studies to compare. David Welch MD (Electronically Signed) Final Date: 15 August 2019 18:34 S
[2019-08-15 16:41] LABS: NT Pro B Type Natriuretic Pept 321 pg/mL (0-450)
[2019-08-15 16:44] LABS: Prealbumin 6.6 mg/dL (20-40)
[2019-08-15] MEDS: mirtazapine 15 mg Tablet PO (20:20)
[2019-08-15] MEDS: budesonide 0.5 mg/2 mL Neb INHALATION (20:54)
[2019-08-16] VITALS (11 sets, daily range): BP systolic 86–113; BP diastolic 56–63; PULSE 8–115; RESP 16–22; TEMP 36.4–37; O2SAT 91–98
[2019-08-16] MEDS: piperacillin-tazobactam 3.375 GM in sodium chloride 0.9% (plus) 50 ML IV ×3 (03:25→19:23)
[2019-08-16] MEDS: ipratropium-albuterol 3 mL Neb INHALATION ×4 (04:17→20:15)
[2019-08-16 05:02] LABS: Basophils # 0.1 10^3/uL (0.0-0.1); Eosinophils % 0.4 %; Hematocrit 27.4 % (37.0-47.0); Hemoglobin 8.4 g/dL (11.5-15.3); Lymphocytes # 0.2 10^3/uL (0.8-4.8); Lymphocytes % 3.7 %; Mean Corpuscular HGB Conc 30.7 g/dL (30.0-36.0); Mean Corpuscular Hemoglobin 28.3 pg (28.0-34.0); Mean Corpuscular Volume 92.3 fL (81-99); Mean Platelet Volume 10.5 fL (7.4-10.4); Monocytes # 0.4 10^3/uL (0.2-0.9); Monocytes % 6.8 %; Neutrophils # 4.5 10^3/uL (1.8-7.7); Neutrophils % 86.5 %; Nucleated Red Blood Cells % 0 %; Platelet Count 152 10^3/cmm (130-400); Red Blood Count 2.97 10^6/uL (4.1-5.3); Red Cell Distribution Width 15.8 % (12.1-15.1); White Blood Count 5.1 10^3/uL (4.0-10.0)
[2019-08-16 05:21] LABS: Alanine Aminotransferase 14 U/L (0-33); Albumin Level 1.9 g/dL (3.5-5.2); Alkaline Phosphatase 109 IU/L (35-105); Anion Gap 15.3 (5-19); Blood Urea Nitrogen 6 mg/dL (8-23); Calcium 8.8 mg/dL (8.5-10.5); Carbon Dioxide 23 mmol/L (22-29); Chloride 102 mmol/L (98-107); Globulin 3.4 g/dL (1.3-4.6); Glucose 120 mg/dL (65-115); Osmolality Calculated 281 mOsm/kg (285-295); Potassium 3.3 mmol/L (3.5-5.1); Sodium 137 mmol/L (136-145); Total Bilirubin 1.4 mg/dL (0.15-1.2); Total Protein 5.3 g/dL (6.6-8.7)
[2019-08-16 06:51] LABS: Aspartate Amino Transferase 25 U/L (0-32)
[2019-08-16] MEDS: budesonide 0.5 mg/2 mL Neb INHALATION ×2 (08:15→20:15)
[2019-08-16] MEDS: levoFLOXacin 750 mg Tablet PO (08:39)
[2019-08-16] MEDS: benzonatate 100 mg Capsule PO ×3 (08:39→19:24)
--- NOTE | 2019-08-16 10:30 | CT_ITS ---
WS: [id number] CT LUMBAR SPINE, noncontrast. HISTORY: Urinary incontinence. Possible metastatic disease. TECHNIQUE: Contiguous 2.5 mm axial imaging are performed. Sagittal and coronal reformats are submitte d and reviewed. All CT scans at [facility] use at least one of these dose optimization te chniques: automated exposure control; mA and/or kV adjustment per patient size (includes targeted exa ms where dose is matched to clinical indication); or iterative reconstruction. IV contrast: None DLP: 2141.58 mGy.cm COMPARISON: CT lumbar spine 01/21/2015 Increase in lumbar lordosis. L5 anterolisthesis by 5 mm. The bones are osteopenic. Mild disc space na rrowing and desiccation at L5-S1. Multilevel facet joint arthritis. No lumbar spine compression fract ure, osteoblastic or osteolytic bone disease. Previously described T12 compression fracture will be d escribed on the thoracic CT report. Mild bilateral foraminal narrowing at L4-5 and L5-S1 due to disc and osteophyte disease. Mild atherosclerosis aorta. Incidental note is made of calcification associat ed with the pancreatic head. Mild atherosclerosis aorta. Mild osteopenia in the bones of the pelvis. CT/CT lumbar spine wo con* [id number] IMPRESSION: 1. Increase in lumbar lordosis with no acute compression fracture in the lumba r spine. Mild bilateral foraminal narrowing at L4-5. 2. No compression upon the cord or conus.
--- NOTE | 2019-08-16 10:30 | CT_ITS ---
WS: [id number] CT HEAD NONCONTRAST HISTORY: r/o mass TECHNIQUE: Contiguous axial imaging performed through the brain in 2.5 mm imaging. Bone and soft tiss ue windows. Sagittal and coronal reformats reviewed. All CT scans at [facility] use at ast one of these dose optimization techniques: automated exposure control; mA and/or kV adjustment pe r patient size (includes targeted exams where dose is matched to clinical indication); or iterative r econstruction. DLP: 695.23 mGy.cm COMPARISON: 08/30/2012 No acute intracranial hemorrhage, midline shift or mass effect. Mild atrophy and mild chronic microvascular ischemic disease. Prominent perivascular spaces or small lacunar infarcts in the inferior basal ganglia. Ventricles: Normal size with no hydrocephalus. No inferior displacement of the cerebellar tonsils. Paranasal sinuses: As visualized are clear. Mastoid air cells: Near complete opacification of the RIGHT mastoid air cells with fluid. Calvarium and scalp: Skull is intact with no soft tissue edema or swelling. 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 CT/CT head wo con* [id number] IMPRESSION: 1. No acute intracranial hemorrhage or edema. 2. Mild atrophy and chronic ischemic disease. 3. Acute RIGHT mastoiditis.
--- NOTE | 2019-08-16 10:30 | CT_ITS ---
WS: [id number] CT THORACIC SPINE HISTORY: r/o mets TECHNIQUE: Contiguous 2.5 mm axial images are reviewed to thoracic spine. Images are reformatted in s agittal and coronal planes. All CT scans at [facility] use at least one of these dose opt imization techniques: automated exposure control; mA and/or kV adjustment per patient size (includes targeted exams where dose is matched to clinical indication); or iterative reconstruction. DLP: 1565.53 mGy.cm COMPARISON: 05/08/2019, 02/20/2015. Moderate increase in thoracic kyphosis. Again noted is a burst fracture of T12 which has been previou sly described. Slight bowing and retropulsion of the posterior superior endplate by up to 2 mm. Compr ession fracture approximately 60% without significant change. There is very minimal compression upon the ventral thecal sac. No significant foraminal stenosis. The remaining levels are negative for acute fractures. Mild disc space narrowing and desiccation. No osteoblastic or osteolytic bone disease. Incompletely visualized LEFT upper lobe mass has been previously described on 08/13/2019. Small bilate ral pleural effusions. There is additional bilateral lower lobe airspace consolidations, RIGHT greate r than LEFT. Partially calcified thoracic aorta. CT/CT thoracic spin wo con* [id number] IMPRESSION: 1. No evidence for osteoblastic or osteolytic metastatic bone disease by CT. 2. Stable burst fracture of T12 without significant compromise or compression upon the conus. 3. Small bilateral pleural effusions with bilateral lower lobe airspace consol idations,. Probably combination of pneumonia and atelectasis. 4. LEFT upper lobe mass incompletely visualized but has been previously descri bed on a prior chest CT.
--- NOTE | 2019-08-16 10:57 | P.PN_ITS ---
Subjective Subjective: Interval history: No acute event overnight. This morning on examination patient lying comfortably in bed. States her breathing is improved her report. Denies of any nausea, vomiting, headache, palpitations. Her results of COVID 19 testings are negative. She states she is back to her baseline of breathing. She is on 2 L nasal cannula looking mildly tachypneic. She states she is always little out of breath. Labs noted. Vitals noted. Vitals/I&O/Wt Last Vital Signs Temp 97.7 F 08/16/19 07:36 Pulse 82 08/16/19 08:17 Resp 22 H 08/16/19 08:17 BP 108/61 08/16/19 07:36 Pulse Ox 92 08/16/19 08:17 08/15/19 08/16/19 08/16/19 22:59 06:59 14:59 Intake Total 590 / 1180 1335.5 / 1335.5 Output Total 1000 / 1000 800 / 1800 Balance -410 / 180 -800 / -620 1335.5 / 1335.5 Weight last 48 hrs Weight 65.487 kg Physical Exam Narrative: EXAM NARRATIVE: Elderly frail female seems very dehydrated, sitting in her bed, mildly tachypneic, saturating 98% on 4 L nasal cannula She has pursed lip breathing without any cyanosis or use of accessory muscles S1, S2 no sinus tachycardia or signs of heart failure Bilateral bronchial breath sounds right greater than left, no active wheezing, Abdomen soft, nontender bowel sounds present bilaterally without any tenderness Alert oriented x3, able to comprehend my questions and answer appropriately, nonfocal neurological exam Leg raise test positive Osborne catheter draining clear yellow urine Skin does not show any signs of ischemia gangrene or ulcer Data : 08/16/19 04:52 08/16/19 04:52 Micro: Microbiology 08/13/19 18:10 Urine Culture - Final Urine,Clean Catch Escherichia coli 08/15/19 16:18 Legionella Urinary Antigen - Final Urine Catheterized A&P Assessment and plan (1) Respiratory failure with hypoxia: Status: Acute (2) Right lower lobe pneumonia: Status: Acute (3) Primary lung squamous cell carcinoma: Status: Acute (4) T12 compression fracture: Status: Acute (5) Urinary incontinence: Status: Acute (6) Protein-energy malnutrition: Status: Acute (7) Dehydration: Status: Acute Additional A&P Information Acute hypoxic respiratory failure: Secondary to combination of squamous cell lung cancer and right lower lobe pneumonia in setting of emphysema. Currently saturating well on 4 L nasal cannula. Given the immunocompromise state along with sick contact in niece, low-grade temperature, CT findings will check for COVID 19. Continue with vancomycin, Zosyn at current dose. All renally dosed. Sputum culture awaited. Have asked respiratory therapist for induction. Urine for Legionella negative. DC levofloxacin after today. We will de-escalate antibiotics as per the culture results. COVID 19 negative. Can remove the precautions. Budesonide twice daily, DuoNebs every 6 hours. No steroids required as patient does not have extensive wheeze. Oxygen supplementation keeping saturation over 90%. Check probnp and ECHO given chemo and radiation therapy to r/o cardiomyopathy. Urinary incontinence: Could be related to history of T12 compression fracture but cannot rule out metastases to brain, spinal cord. As the results are negative we will do CT head, CT spine to rule out metastasis. Till then continue with urinary catheter, pain management with oral analgesics and antispasmodics. Malnourished/severe protein energy malnutrition: She has anorexia with weight loss Diet advanced to soft mechanical diet as per swallow evaluation. Add Ensure for supplementation diet. Squamous cell cancer of lung: Most recent chemotherapy on August 09 and radiation therapy on August 11. Patient is currently getting radiotherapy 4 days a week and chemotherapy mostly on Fridays Has last session was yesterday CODE STATUS Her previous records have shown DNR/DNI status, patient herself is endorsing DNR/DNI Daughters at the bedside discussed goals of care with her mother one more time, they are okay with intubation for respiratory distress but in case of cardiac arrest they do not want any chest compressions but okay with intubations Patient is most likely at her baseline now. If she continues to do well can plan to discharge her tomorrow. Attestations Medical Necessity Statement*: Hypoxic respiratory failure. Time Spent in Patient Care: Greater than 35 minutes Coding Level of Care Code Acute Clay Hoister for Saud Nieto Diagnoses Respiratory failure with hypoxia J96.91 Right lower lobe pneumonia J18.9 Primary lung squamous cell carcinoma C34.90 T12 compression fracture S22.080A Urinary incontinence R32 Protein-energy malnutrition E46 Dehydration E86.0
--- NOTE | 2019-08-16 11:20 | PC.SOCIAL ---
IMM Update Pg 2 of IMM given and explained to patient. Copy provided to patient.
[2019-08-16 15:14] LABS: Coronavirus Lab Test PTC SEE COMMENTS
[2019-08-16] MEDS: sodium chloride 0.9% 500 ML 999 ML IV (15:44)
[2019-08-16] MEDS: mirtazapine 15 mg Tablet PO (19:24)
[2019-08-16] MEDS: enoxaparin 40 mg/0.4 mL Syringe SUBCUT (19:24)
[2019-08-17] VITALS (18 sets, daily range): BP systolic 85–130; BP diastolic 54–78; PULSE 78–117; RESP 14–22; TEMP 36.3–36.7; O2SAT 90–98
[2019-08-17] MEDS: dextrose 5%-sod chloride 0.45% 1,000 ML 30 ML IV (02:42)
[2019-08-17] MEDS: piperacillin-tazobactam 3.375 GM in sodium chloride 0.9% (plus) 50 ML IV ×3 (02:43→20:41)
[2019-08-17] MEDS: ipratropium-albuterol 3 mL Neb INHALATION ×4 (02:51→21:06)
[2019-08-17 05:29] LABS: Basophils % 0.5 %; Eosinophils % 0.3 %; Hematocrit 23.1 % (37.0-47.0); Hemoglobin 7.2 g/dL (11.5-15.3); Lymphocytes # 0.2 10^3/uL (0.8-4.8); Lymphocytes % 3.2 %; Mean Corpuscular HGB Conc 31.2 g/dL (30.0-36.0); Mean Corpuscular Hemoglobin 29.1 pg (28.0-34.0); Mean Corpuscular Volume 93.5 fL (81-99); Mean Platelet Volume 10.4 fL (7.4-10.4); Monocytes # 0.6 10^3/uL (0.2-0.9); Monocytes % 8.2 %; Neutrophils # 6.6 10^3/uL (1.8-7.7); Neutrophils % 86.5 %; Nucleated Red Blood Cells % 0 %; Platelet Count 136 10^3/cmm (130-400); Red Blood Count 2.47 10^6/uL (4.1-5.3); Red Cell Distribution Width 16.1 % (12.1-15.1); White Blood Count 7.6 10^3/uL (4.0-10.0)
[2019-08-17 05:43] LABS: Alanine Aminotransferase 18 U/L (0-33); Albumin Level 2.1 g/dL (3.5-5.2); Alkaline Phosphatase 119 IU/L (35-105); Anion Gap 11.1 (5-19); Aspartate Amino Transferase 31 U/L (0-32); Blood Urea Nitrogen 11 mg/dL (8-23); Calcium 8.8 mg/dL (8.5-10.5); Carbon Dioxide 25 mmol/L (22-29); Chloride 104 mmol/L (98-107); Globulin 3.3 g/dL (1.3-4.6); Glucose 132 mg/dL (65-115); Osmolality Calculated 282 mOsm/kg (285-295); Potassium 3.1 mmol/L (3.5-5.1); Sodium 137 mmol/L (136-145); Total Bilirubin 0.9 mg/dL (0.15-1.2); Total Protein 5.4 g/dL (6.6-8.7)
[2019-08-17] MEDS: dextrose 5%-sod chloride 0.45% 1,000 ML 75 ML IV (08:01)
[2019-08-17] MEDS: benzonatate 100 mg Capsule PO ×3 (08:02→20:40)
[2019-08-17] MEDS: acetaminophen 500 mg Tablet PO (08:08)
--- NOTE | 2019-08-17 08:34 | P.PN_ITS ---
Subjective Subjective: Interval history: No acute event overnight. On examination is lying comfortably in bed. States her breathing is back to her baseline. She is saturating more than 92% on 2 L nasal cannula. She denies of having any headache, nausea, vomiting, chest pain or palpitations, dizziness. Labs and vitals noted. Vitals/I&O/Wt Last Vital Signs Temp 97.7 F 08/17/19 07:32 Pulse 92 08/17/19 07:32 Resp 20 H 08/17/19 07:32 BP 103/58 08/17/19 07:32 Pulse Ox 92 08/17/19 07:32 08/16/19 08/17/19 08/17/19 22:59 06:59 14:59 Intake Total 734.5 / 2560.0 580 / 3140.0 410.75 / 410.75 Output Total 500 / 500 300 / 800 Balance 234.5 / 2060.0 280 / 2340.0 410.75 / 410.75 Weight last 48 hrs Weight 68.521 kg Weight 65.487 kg Physical Exam Narrative: EXAM NARRATIVE: Elderly frail female seems very dehydrated, sitting in her bed, mildly tachypneic, saturating 98% on 2 L nasal cannula Cardiovascular: S1, S2 no sinus tachycardia or signs of heart failure Lungs: Bronchial breath sounds bilaterally, more on the right side, no wheeze or rhonchi, bilaterally equal air entry. Abdomen soft, nontender bowel sounds present bilaterally without any tenderness Alert oriented x3, able to comprehend my questions and answer appropriately, nonfocal neurological exam Leg raise test positive Osborne catheter draining clear yellow urine Skin does not show any signs of ischemia gangrene or ulcer Data : 08/17/19 05:06 08/17/19 05:06 Micro: Microbiology 08/13/19 18:10 Urine Culture - Final Urine,Clean Catch Escherichia coli A&P Assessment and plan (1) Respiratory failure with hypoxia: Status: Acute (2) Right lower lobe pneumonia: Status: Acute (3) Primary lung squamous cell carcinoma: Status: Acute (4) T12 compression fracture: Status: Acute (5) Urinary incontinence: Status: Acute (6) Protein-energy malnutrition: Status: Acute (7) Dehydration: Status: Acute Additional A&P Information Acute hypoxic respiratory failure: Secondary to combination of squamous cell lung cancer and right lower lobe pneumonia in setting of emphysema. Currently saturating well on 2 L nasal cannula. Given the immunocompromise state along with sick contact in niece, low-grade temperature, CT findings will check for COVID 19. Continue with vancomycin, Zosyn at current dose. All renally dosed. Day 4/5 of treatment. Levofloxacin stopped after 3-day course. Urine for Legionella negative. COVID 19 negative. Can remove the precautions. Budesonide twice daily, DuoNebs every 6 hours. No steroids required as patient does not have extensive wheeze. Oxygen supplementation keeping saturation over 90%. Urinary incontinence: Could be related to history of T12 compression fracture but cannot rule out metastases to brain, spinal cord. CT results appreciated. HOA Osborne today. Discussed with the daughter that patient would most likely con tinue to have some urinary incontinence Malnourished/severe protein energy malnutrition: She has anorexia with weight loss Diet advanced to soft mechanical diet as per swallow evaluation. Add Ensure for supplementation diet. Squamous cell cancer of lung: Most recent chemotherapy on August 09 and radiation therapy on August 11. Patient is currently getting radiotherapy 4 days a week and chemotherapy mostly on Fridays Has last session was day before admission. C/d/w Dr. Crump. Will get further chemo-radiation 1 week after discharge. Anemia: Hemoglobin slowly trending down. 7.2 today. We will transfuse 1 unit PRBC today. Iron studies suggestive of anemia of chronic disease. CODE STATUS Her previous records have shown DNR/DNI status, patient herself is endorsing DNR/DNI Daughters at the bedside discussed goals of care with her mother one more time, they are okay with intubation for respiratory distress but in case of cardiac arrest they do not want any chest compressions but okay with intubations Patient is most likely at her baseline now. If she continues to do well can plan to discharge her tomorrow to home with home health. Care discussed with patient's D POA and daughter Ms. Gustafson. She agrees with the plan. Attestations 2 Medical Necessity Statement*: Hypoxic respiratory failure, pneumonia, squamous cell lung carcinoma, anemia Time Spent in Patient Care: Greater than 35 minutes Coding Level of Care Code Acute Office Administration Instructor for [facility] Fwd Diagnoses Respiratory failure with hypoxia J96.91 Right lower lobe pneumonia J18.9 Primary lung squamous cell carcinoma C34.90 T12 compression fracture S22.080A Urinary incontinence R32 Protein-energy malnutrition E46 Dehydration E86.0
[2019-08-17] MEDS: budesonide 0.5 mg/2 mL Neb INHALATION ×2 (08:35→21:06)
[2019-08-17] MEDS: sodium chloride 0.9% 100 ML 50 ML (17:52)
[2019-08-17 18:45] LABS: Vancomycin Trough 44.3 ug/mL (10-15)
[2019-08-17] MEDS: enoxaparin 40 mg/0.4 mL Syringe SUBCUT (20:40)
[2019-08-17] MEDS: mirtazapine 15 mg Tablet PO (20:41)
[2019-08-18] VITALS (9 sets, daily range): BP systolic 103–112; BP diastolic 57–71; PULSE 81–98; RESP 17–22; TEMP 36.3–37.1; O2SAT 93–98
[2019-08-18] MEDS: guaiFENesin 100 mg/5 mL UDC 10 mL 400 MG PO (00:27)
[2019-08-18] MEDS: dextrose 5%-sod chloride 0.45% 1,000 ML 75 ML IV (00:27)
[2019-08-18] MEDS: ipratropium-albuterol 3 mL Neb INHALATION ×2 (02:22→08:31)
[2019-08-18] MEDS: piperacillin-tazobactam 3.375 GM in sodium chloride 0.9% (plus) 50 ML IV ×2 (06:00→11:20)
[2019-08-18 07:06] LABS: Basophils # 0.1 10^3/uL (0.0-0.1); Basophils % 0.8 %; Eosinophils % 0.6 %; Hematocrit 27.9 % (37.0-47.0); Hemoglobin 8.5 g/dL (11.5-15.3); Lymphocytes # 0.3 10^3/uL (0.8-4.8); Mean Corpuscular HGB Conc 30.5 g/dL (30.0-36.0); Mean Corpuscular Hemoglobin 28.2 pg (28.0-34.0); Mean Corpuscular Volume 92.7 fL (81-99); Mean Platelet Volume 10.3 fL (7.4-10.4); Monocytes # 0.7 10^3/uL (0.2-0.9); Monocytes % 10.1 %; Neutrophils # 6.1 10^3/uL (1.8-7.7); Neutrophils % 83.7 %; Nucleated Red Blood Cells % 0 %; Platelet Count 145 10^3/cmm (130-400); Red Blood Count 3.01 10^6/uL (4.1-5.3); Red Cell Distribution Width 17.8 % (12.1-15.1); White Blood Count 7.2 10^3/uL (4.0-10.0)
[2019-08-18 07:30] LABS: Alanine Aminotransferase 20 U/L (0-33); Albumin Level 2.1 g/dL (3.5-5.2); Alkaline Phosphatase 114 IU/L (35-105); Anion Gap 12.3 (5-19); Aspartate Amino Transferase 27 U/L (0-32); Blood Urea Nitrogen 14 mg/dL (8-23); Calcium 8.7 mg/dL (8.5-10.5); Carbon Dioxide 23 mmol/L (22-29); Chloride 108 mmol/L (98-107); Globulin 3.4 g/dL (1.3-4.6); Glucose 118 mg/dL (65-115); Osmolality Calculated 285 mOsm/kg (285-295); Potassium 4.3 mmol/L (3.5-5.1); Sodium 139 mmol/L (136-145); Total Bilirubin 1.2 mg/dL (0.15-1.2); Total Protein 5.5 g/dL (6.6-8.7)
[2019-08-18] MEDS: benzonatate 100 mg Capsule PO ×2 (08:27→13:42)
[2019-08-18] MEDS: budesonide 0.5 mg/2 mL Neb INHALATION (08:31)
--- NOTE | 2019-08-18 12:52 | P.DS_ITS ---
Discharge Providers Date of Admission: 08/13/19 20:06 Date of Discharge: August 18, 2019 Attending Provider at Admission: David Christian MD Attending Provider at Discharge: Kushal Alfred MD Primary Care Provider: Nestor Cross MD Diagnoses at Discharge Discharge Diagnosis (1) Respiratory failure with hypoxia: Status: Acute (2) Right lower lobe pneumonia: Status: Acute (3) Primary lung squamous cell carcinoma: Status: Acute (4) T12 compression fracture: Status: Acute (5) Urinary incontinence: Status: Acute (6) Protein-energy malnutrition: Status: Acute (7) Dehydration: Status: Acute Reason for Visit Reason for Visit: Reason For Visit: FEVER; AMS; CANCER HX Hospital Course Discharge Summary: Ora De Leon is a 78 year old female who has chronic oxygen dependent ( 3L ATC )respiratory failure, COPD, left upper lobe mass status post endobronchial biopsy in 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 Her last chemotherapy session was on Thursday, home health service nurse saw her today and because of her confusion Dr. Jovel was contacted who recommended evaluation in the ER. Daughter is stating that after her chemo session she mostly feels nauseous and today she gave her 1 mg of lorazepam and stool softeners. Temperature checked by the home health nurse was 99.5, Osborne catheter was draining clear yellow urine. Patient was complaining of chills, constipation and lethargy, she was communicative but drowsy. Patient is stating that her cough is chronic she has not noticed increased intensity in her cough or sputum production, she is denying orthopnea, PND, but is endorsing chills and extreme lethargy. About 7 days prior to the admission she started experiencing urinary incontinence at that time Osborne catheter was placed, patient and her daughters are not aware if she was diagnosed with metastases to brain or spine. Patient is endorsing low appetite, weight loss, constipation without obstipation, abdominal pain. She is not endorsing any lower back pain. Patient and her daughters are stating that for last couple of days she has been so weak that they have noticed that every time she is trying to eat or drink she would cough and choke. Patient was admitted on August 12 with complaint of pneumonia. She was started on broad-spectrum antibiotics to cover for hospital-acquired pneumonia. COVID 19 was ruled out. Because of new urinary incontinence CT head, CT back was done to rule out metastasis. Once metastasis was ruled out catheter was DC'd because that puts her at a higher risk of susy infection. She responded well to the treatment and her oxygen requirements are back to her baseline. Echocardiogram was done to rule out chemoradiation induced cardiomyopathy. Echocardiogram showed a normal EF with grade 1 diastolic dysfunction. During hospitalization her hemoglobin trended down to 7.2 for which she was given 1 unit of PRBC and she tolerated pretty well. Her hemoglobin is up to 8.5. Patient is supposed to get back on a schedule of chemoradiation therapy next week. Case was discussed with Dr. Crump who is her primary oncologist and he agrees with the plan. She is been tied discharged in hemodynamically stable condition with advised to follow-up with her oncologist in 1 week and her PCP next 2 weeks. Physical Exam Narrative: EXAM NARRATIVE: Elderly frail female seems very dehydrated, sitting in her bed, mildly tachypneic, saturating 98% on 2 L nasal cannula Cardiovascular: S1, S2 no sinus tachycardia or signs of heart failure Lungs: Bronchial breath sounds bilaterally, more on the right side, no wheeze or rhonchi, bilaterally equal air entry. Abdomen soft, nontender bowel sounds present bilaterally without any tenderness Alert oriented x3, able to comprehend my questions and answer appropriately, nonfocal neurological exam Leg raise test positive Osborne catheter draining clear yellow urine Skin does not show any signs of ischemia gangrene or ulcer Discharge Data Data Completed and Pending: Completed Studies During Hospitalization Category Date Time Status CT angio chest PE protcl [id number] Urge nt Cat Scan 08/13/19 20:[address] head wo con* 7 [id number] Routine Cat Scan 08/16/19 10:[address] lumbar spine w o con* [id number] Routi ne Cat Scan 08/16/19 10:[address] thoracic spin wo con* [id number] Rout ine Cat Scan 08/16/19 10:30 Completed XR chest 1V lily ble [id number] Stat Exams 08/13/19 16:38 Completed CV echo complete* [id number] Routine Ultrasound 08/15/19 16:24 Completed Pending at discharge Category Date Time Status Blood Culture Sta t Lab 08/13/19 23:30 Results Sputum Culture an d Gram Stain Stat Lab 08/13/19 23:30 Uncollected Vancomycin Random Routine Lab 08/19/19 04:00 Ordered Labs from last 24 hours 08/18/19 08/18/19 08/17/19 07:00 07:00 17:48 WBC 7.2 RBC 3.01 L Hgb 8.5 L Hct 27.9 L MCV 92.7 MCH 28.2 MCHC 30.5 RDW 17.8 H Plt Count 145 MPV 10.3 Neut % (Auto) 83.7 Lymph % (Auto) 4.0 [place] % (Auto) 10.1 Eos % (Auto) 0.6 Baso % (Auto) 0.8 Neut # (Auto) 6.1 Lymph # (Auto) 0.3 L [place] # (Auto) 0.7 Eos # (Auto) 0.0 Baso # (Auto) 0.1 Nucleated RBC % (a uto) 0 Nucleated RBCs # 0.0 Sodium 139 Potassium 4.3 Chloride 108 H Carbon Dioxide 23 Anion Gap 12.3 BUN 14 Creatinine 2.1 H Glucose 118 H Calculated Osmolal ity 285 Calcium 8.7 Total Bilirubin 1.2 AST 27 ALT 20 Alkaline Phosphata se 114 H Total Protein 5.5 L Albumin 2.1 L Globulin 3.4 Vancomycin Trough 44.3 H* Blood Type Rho(D) Type Antibody Screen Crossmatch 08/17/19 11:58 WBC RBC Hgb Hct MCV MCH MCHC RDW Plt Count MPV Neut % (Auto) Lymph % (Auto) [place] % (Auto) Eos % (Auto) Baso % (Auto) Neut # (Auto) Lymph # (Auto) [place] # (Auto) Eos # (Auto) Baso # (Auto) Nucleated RBC % (a uto) Nucleated RBCs # Sodium Potassium Chloride Carbon Dioxide Anion Gap BUN Creatinine Glucose Calculated Osmolal ity Calcium Total Bilirubin AST ALT Alkaline Phosphata se Total Protein Albumin Globulin Vancomycin Trough Blood Type O Positive Rho(D) Type Positive Antibody Screen Negative Crossmatch See Detail Vitals: Last Vital Signs Temp 97.3 F L 08/18/19 11:25 Pulse 93 08/18/19 11:25 Resp 18 08/18/19 11:25 BP 112/71 08/18/19 11:25 Pulse Ox 96 08/18/19 11:25 Discharge Plan Discharge Patient Disposition: Home, Self-Care Condition: Stable Prescriptions: New benzonatate 100 mg Capsule 100 mg PO TID Qty: 10 RF: 0 Continued dexamethasone 4 mg Tablet 4 mg PO BID RF: 0 lorazepam 1 mg Tablet 1 mg PO Q4H PRN (Reason: Nausea) RF: 0 paroxetine HCl 12.5 mg Tablet Extended Release 24 Hr 25 mg PO DAILY RF: 0 Discharge Orders: Discharge Order (Routine); Ordered 08/18/19 Ordered By: Kushal Alfred Referrals: [facility] [place] Home Care ([facility]) [Outside] Nestor Cross MD [Primary Care Provider] - 2 weeks Discharge Diet: Usual diet Discharge Activity: Increase activity as tolerated Activity Restrictions/Additional Instructions: Please make sure that the oral hydration remains well. Try to take up to 3 L of oral hydration every day. Please go back to your schedule of chemotherapy and radiation therapy from next week. Please check CBC and CMP in 1 week. Discharge Attestations Time Spent in Discharge Care*: greater than 30 min Specific Discharge Activities: Specific discharge activities: educating patient, educating and/or supporting family/caregiver, discussing with pcp/other providers, documenting/other paperwork and evaluating patient/reviewing data Status at Discharge: Cognitive status at discharge: cognitively intact , Behavioral status at discharge: cooperative , Functional status at discharge: other assisted ambulation Overall status at discharge: patient is progressing back to baseline Quality Metrics Clinical Quality Measures During this hospital stay, did patient experience: None Coding Level of Care Code Acute Inspector Quality Assurance for [employer] Diagnoses Respiratory failure with hypoxia J96.91 Right lower lobe pneumonia J18.9 Primary lung squamous cell carcinoma C34.90 T12 compression fracture S22.080A Urinary incontinence R32 Protein-energy malnutrition E46 Dehydration E86.0
--- NOTE | 2019-08-18 14:07 | PC.SOCIAL ---
Important Medicare Message Previously reviewed page 2 Important Medicare Message reviewed with patient and daughter Janay over the phone, verbalized understanding and denied need for phone number stating they felt like she was ready for discharge. Updated copy placed in chart.
--- NOTE | 2019-08-18 14:42 | PC.NURSE ---
DISCHARGE - D/c Instructions given, iv removed and patient voiced understanding. ROHANW, FOOD PROCESSOR
--- NOTE | 2019-08-18 14:49 | PC.NURSE ---
DISCHARGED patient via wheelchair to home with HOME HEALTH. ROHANW, FOOD PRODUCTION SUPERVISOR
== END 2019-08-18 14:50 | disposition home or self-care (01) | DRG 177 ==
LOC: ER 20:23 → MEDSURG 20:27
PROVIDERS: Family Medicine; Admitting Provider Internal Medicine; Emergency Provider Emergency Medicine; PCP Family Medicine; Visit Provider Student in an Organized Health Care Education/Training Program
DX: J69.0 Pneumonitis due to inhalation of food and vomit (principal); J96.01 Acute respiratory failure with hypoxia; S22.080A Wedge compression fracture of T11-T12 vertebra, initial encounter for closed fracture; E46 Unspecified protein-calorie malnutrition; C34.90 Malignant neoplasm of unspecified part of unspecified bronchus or lung; E86.0 Dehydration; Z66 Do not resuscitate; Z68.25 Body mass index [BMI] 25.0-25.9, adult; R32 Unspecified urinary incontinence; Z99.81 Dependence on supplemental oxygen; N18.2 Chronic kidney disease, stage 2 (mild); F32.9 Major depressive disorder, single episode, unspecified; F03.90 Unspecified dementia, unspecified severity, without behavioral disturbance, psychotic disturbance, mood disturbance, and anxiety; G89.29 Other chronic pain; M19.90 Unspecified osteoarthritis, unspecified site; Z87.891 Personal history of nicotine dependence; R19.7 Diarrhea, unspecified; Z96.0 Presence of urogenital implants; X58.XXXA Exposure to other specified factors, initial encounter
CPT/HCPCS: 12345; 36415; 36430; 36600; 70450; 71045; 71275; 72128; 72131; 80051; 80053; 80202; 81001; 82607; 82810; 83540; 83550; 83605; 83690; 83735; 83880; 83986; 84100; 84134; 84145; 85025; 86141; 86403; 86850; 86900; 86920; 87040; 87077; 87086; 87186; 87449; 87493; 87635; 87804; 92526; 92610; 93005; 93306; 94640; 96372; 99284; J1650; J1956; J2543; J3370; J7030; J7040; J7050; J7626; J7799; P9016; Q9967

== ENCOUNTER 2019-08-16 06:49 | Outpatient (RCR) | payer MEDICARE, SELFPAY ==
[2019-08-08 16:34] LABS: Basophils % 0.7 %; Eosinophils # 0.2 10^3/uL (0.0-0.8); Eosinophils % 3.9 %; Hematocrit 28.6 % (37.0-47.0); Hemoglobin 8.7 g/dL (11.5-15.3); Lymphocytes # 0.3 10^3/uL (0.8-4.8); Lymphocytes % 7.6 %; Mean Corpuscular HGB Conc 30.4 g/dL (30.0-36.0); Mean Corpuscular Hemoglobin 28.5 pg (28.0-34.0); Mean Corpuscular Volume 93.8 fL (81-99); Monocytes # 0.4 10^3/uL (0.2-0.9); Monocytes % 8.7 %; Neutrophils # 3.4 10^3/uL (1.8-7.7); Neutrophils % 78.6 %; Nucleated Red Blood Cells % 0 %; Platelet Count 234 10^3/cmm (130-400); Red Blood Count 3.05 10^6/uL (4.1-5.3); Red Cell Distribution Width 14.9 % (12.1-15.1); White Blood Count 4.4 10^3/uL (4.0-10.0)
[2019-08-08 16:56] LABS: Alanine Aminotransferase 13 U/L (0-33); Albumin Level 2.7 g/dL (3.5-5.2); Alkaline Phosphatase 85 IU/L (35-105); Anion Gap 13.6 (5-19); Aspartate Amino Transferase 15 U/L (0-32); Blood Urea Nitrogen 15 mg/dL (8-23); Calcium 9.4 mg/dL (8.5-10.5); Carbon Dioxide 29 mmol/L (22-29); Chloride 100 mmol/L (98-107); Globulin 3.7 g/dL (1.3-4.6); Glucose 80 mg/dL (65-115); Osmolality Calculated 283 mOsm/kg (285-295); Potassium 3.6 mmol/L (3.5-5.1); Sodium 139 mmol/L (136-145); Total Bilirubin 0.8 mg/dL (0.15-1.2); Total Protein 6.4 g/dL (6.6-8.7)
--- NOTE | 2019-08-09 16:24 | ONCRAD TMN_ITS ---
Radiation Oncology Weekly Treatment Management Patient: Ora De Leon MR#: [id number] : 1940 Age: 78 Sex: Female Dictated by: Dr. Darrius Urena Date of Service: 08/09/2019 Referring Physician(s) : Riya Crump M.D. Primary Diagnosis: C34.12 - Malignant neoplasm of upper lobe, left bronchus or lung, Diagnosed 05/26/2019 (Active) Radiotherapy to date: Course: LT Lung 2019, Treatment Site: LT Lung 46, Ref. ID: [id number], Energy: 6X, Dose/Fx (cGy): 200, #Fx: , Dose Correction (cGy): 0, Total Dose (cGy): 2,200, Start Date: 07/25/2019, Elapsed Days: 15 Current Complaints/Interval History: Ms De Leon has been under treatment slightly over 2 weeks. She is receiving concomitant chemotherapy. Chemotherapy is scheduled tomorrow. She went to the emergency room over the weekend. Based on a portable chest x-ray, the radiologist said that the left upper lobe mass was larger. I measured the mass on the CT from April, on the cone beam CT when she started radiation, and on the cone beam CT today. The mass is distinctly smaller. Measurements were provided to the family. The mass was about 6 cm x 5 cm at the initiation of treatment and it is about 4-1/2 x 5 cm at this time. The patient's general condition is poor. She has lost 5 pounds since last week. She has no appetite. She spends most of the day in bed. She has intermittent painful swallowing. When she does have discomfort it is in her throat area and not the esophagus. She has clear lungs on auscultation. No yeast in the oral cavity or oropharynx. We discussed the patient's poor performance status and not eating. I discussed trying to sip fluids and double calories through the day. We also discussed dietary supplements. They do not taste good to her. I told the patient that if she wishes to continue on with the planned course of treatment that her calorie and fluid intake will have to improve. I told her that we may have to go to a feeding tube. Her daughter ask about Marinol. I requested they discussed that with Dr. Crump tomorrow. Continue as planned Current Medications: CARBOplatin, desvenlafaxine ER, dexamethasone, dexamethasone Sodium Phosphate, diclofenac Sodium, diphenhydrAMINE HCl, famotidine in NaCl, hydroCHLOROthiazide, lORazepam, montelukast Sodium, omeprazole, pACLitaxel, palonosetron HCl, pARoxetine HCl ER, prochlorperazine Maleate, trelegy Ellipta, vESIcare. Allergies: Codeine Sulfate. Vital Signs: Physical Exam: Appears stable, no skin erythema or desquamation. Performance Status: 2 - Ambulatory/capable of all self-care, unable to perform any work activities. Up and about more than 50% of waking hours. (ECOG) Lab: None pending in Radiation Oncology. Imaging: No new diagnostic imaging was performed since the last weekly treatment visit. All radiation therapy related imaging (including but not limited to kV, MV, and CBCT generated images) was reviewed. Appropriate changes, if any, were made to assure accurate target localization. Impression/Plan: Tolerating treatment well with expected side effects. Continue treatment as planned. CPT: 51520 Signed by: Dr. Darrius Urena>08/09/2019 4:23:13 PM <<Signature on File>>
[2019-08-10] MEDS: sodium chloride 0.9% 250 ML 75 ML IV (13:30)
--- NOTE | 2019-08-10 15:57 | ONC FU_ITS ---
Dr. Crump follow up note Patient: Ora De Leon Unit #: [id number]: 1940 Dicatated By: Riya Crump M.D.Date of Visit:Aug 10, 2019 Onc Med Follow-up/Prog Note History of Present Illness: Mrs De Leon is a 78-year-old female with a history of abnormal chest x-ray with a left upper lobe lung mass. The mass was confirmed with CT scan of chest. Subsequently on 07/05/2019, she underwent bronchoscopy and endobronchial ultrasound-guided transbronchial needle aspiration of lymph nodes. 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 Lymph node aspiration showed benign lymph nodes and cytology from bronchoalveolar lavage and Cytobrush were negative too. She underwent CT PET scan on 06/28/2019 in [place], [place] which showed large metabolic active mass within left upper lobe, mild adjacent nodularity in the left lung may reflect some satellite lesion or inflammation; Mildly enlarged mediastinal lymph nodes with some increase in metabolic activity could represent early metastatic disease; Wedge compression of T12 vertebral body of indeterminate age. Due to poor pulmonary reserve, patient is on home oxygen. She was considered not to be a candidate for surgical resection. Mrs De Leon was offered treatment with combined treatment with radiation therapy and chemotherapy. She began her first week of treatment weekly carboplatin/Taxol concurrent with radiation therapy on 07/26/2019. She has tolerated it well so far. Came for follow-up, denies any specific complaints, no fever or chills, no nausea or vomiting, no diarrhea constipation, no hemoptysis or hematemesis, patient quit smoking few weeks ago. Tolerating combined chemoradiation with weekly chiropractic and/Taxol well Medications: Desvenlafaxine ER 1 Tablet (of 50 mg) Tablet SR 24 HR Oral daily, hydroCHLOROthiazide 1 Tablet (of 12.5 mg) Oral daily, Magnesium Citrate 150 mL Solution Oral b.i.d. PRN, Montelukast Sodium 1 Tablet (of 10 mg) Oral daily, Omeprazole 1 Capsule (of 20 mg) Capsule Delayed Release Oral daily, Trelegy Ellipta 1 Puff(s) (of 100-62.5-25 mcg/inh) Aerosol Powder, Breath Activated Inhalation PRN, VESIcare 1 Tablet (of 10 mg) Oral daily Allergies: Codeine Sulfate Review of Systems: Review of Systems is not available for this patient. Vital Signs: Performed on Aug 10, 2019 12:36 Height - 65.00 in Weight - lbs Temperature - 97.7 F (LOW) Pulse - 92 /min Respiration - 24 /min BP - 96/59 mm(hg) O2 Sat - 96 % Pain - 2 Performance Status: 2 - Ambulatory/capable of all self-care, unable to perform any work activities. Up and about more than 50% of waking hours. (ECOG) Physical Examination: ENMT - No oral exudates, ulcers, masses, thrush or mucositis. Oropharynx clear. Tongue normal, Respiratory - Lungs are clear to auscultation without rhonchi or wheezing, Cardiovascular - Regular rate and rhythm of heart, Abdomen - Non-tender, non-distended Good bowel sounds. No guarding or rebound tenderness. No pulsatile masses, Extremities - 1+ edema bilaterally. Lab/Imaging: Test performed on Aug 08, 2019 12:35 Glucose 80 mg/dL BUN 15 mg/dL Creatinine 0.5 mg/dL Cr Clearance (Est) 97.34 mL/min Sodium 139 mmol/L Potassium 3.6 mmol/L Chloride 100 mmol/L CO2 29 mmol/L Calcium 9.4 mg/dL Protein, Total 6.4 g/dL Albumin 2.7 g/dL Globulin 3.7 g/dL Bilirubin, Total 0.8 mg/dL Alkaline Phosphatase 85 IU/L AST (SGOT) 15 IU/L ALT (SGPT) 13 IU/L WBC 4.4 10^9/L RBC 3.05 10^12/L HGB 8.7 g/dL HCT 28.6 % MCV 93.8 fl MCH 28.5 pg MCHC 30.4 g/dL RDW 14.9 % Platelet Count 234 10^9/L MPV 11 fL Neutrophils (Gran) 3.4 10^9/L Lymphocytes 0.3 10^9/L Monocytes 0.4 10^9/L Eosinophils 0.2 10^9/L Basophils 0 10^9/L Manual Segs 78.6 % Manual Lymphocytes 7.6 % Manual Monocytes 8.7 % Manual Eosinophils 3.9 % Manual Basophils 0.7 % NRBCs 0 /100 WBC Test performed on Aug 01, 2019 14:35 Anion Gap 10.7 Neutrophil % 84.6 % Lymphocyte % 6.9 % Monocyte % 4.2 % Eosinophil % 2.1 % Basophils % 0.9 % Impression: 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 Wedge compression of T12 vertebral body of indeterminate age. Clinical stage COPD, on home oxygen Dementia Essential hypertension discussed with Ms De Leon and her family her disease status and treatment options. Considering Ms De Leon's poor pulmonary reserve, she is not a candidate for surgical resection. The role of combined chemoradiation was discussed in detail, and she was offered weekly carboplatin Taxol concurrent radiation therapy, if tolerated well we'll discuss about 2 cycles of full dose carboplatin/Taxol followed by maintenance therapy with durvalumab for 12 months. Planning to give her carboplatin AUC 2 Taxol 45-50 mg/m??? weekly concurrent with radiation therapy. Plan: Discussed with patient regarding her labs white blood count 4.4 hemoglobin 8.7 hematocrit 28.6 platelets 234,000 CMP within normal limits except albumin 2.7 Clinically, patient is doing well, tolerating combined chemoradiation with weekly carbo/Taxol. We will proceed with the next schedule dose of weekly carbo and Taxol today and then she will return to clinic in 1 week with CBC CMP As for the anemia is concerned could be multifactorial including underlying myelodysplasia but we'll check her iron studies B12 folic acid level if low, consider supplement otherwise if hemoglobin drop below 8, we'll consider packed RBCs. Signed By: Ryia Crump M.D. <<Signature on File>>
== END 2019-08-16 23:59 | disposition home or self-care (01) ==
LOC: ONCMED 06:49
PROVIDERS: Specialist; Family Provider Family Medicine; PCP Family Medicine
DX: Z51.0 Encounter for antineoplastic radiation therapy (principal); Z51.11 Encounter for antineoplastic chemotherapy; C34.12 Malignant neoplasm of upper lobe, left bronchus or lung; R63.4 Abnormal weight loss; R63.0 Anorexia; I10 Essential (primary) hypertension; D64.9 Anemia, unspecified; J44.9 Chronic obstructive pulmonary disease, unspecified; F03.90 Unspecified dementia, unspecified severity, without behavioral disturbance, psychotic disturbance, mood disturbance, and anxiety; Z99.81 Dependence on supplemental oxygen; Z79.899 Other long term (current) drug therapy
CPT/HCPCS: 77336; 77386; 80053; 85025; 96367; 96413; 96417; 99214; J1100; J1200; J2469; J3490; J7030; J7050; J9045; J9267

== ENCOUNTER 2019-09-15 06:46 | Outpatient (RCR) | payer MEDICARE, SELFPAY ==
[2019-08-22] MEDS: alteplase 1 mg/mL SDV 2 mL 2 MG INTRACATH (11:50)
[2019-08-22 12:36] LABS: Basophils # 0.1 10^3/uL (0.0-0.1); Basophils % 0.9 %; Eosinophils # 0.1 10^3/uL (0.0-0.8); Eosinophils % 1.2 %; Hematocrit 28.9 % (37.0-47.0); Hemoglobin 8.8 g/dL (11.5-15.3); Lymphocytes # 0.4 10^3/uL (0.8-4.8); Mean Corpuscular HGB Conc 30.4 g/dL (30.0-36.0); Mean Corpuscular Hemoglobin 27.8 pg (28.0-34.0); Mean Corpuscular Volume 91.2 fL (81-99); Mean Platelet Volume 9.7 fL (7.4-10.4); Monocytes # 0.7 10^3/uL (0.2-0.9); Monocytes % 12.2 %; Neutrophils # 4.6 10^3/uL (1.8-7.7); Neutrophils % 78.7 %; Nucleated Red Blood Cells % 0 %; Platelet Count 178 10^3/cmm (130-400); Red Blood Count 3.17 10^6/uL (4.1-5.3); Red Cell Distribution Width 17.2 % (12.1-15.1); White Blood Count 5.8 10^3/uL (4.0-10.0)
[2019-08-22 13:02] LABS: Alanine Aminotransferase 11 U/L (0-33); Albumin Level 2.6 g/dL (3.5-5.2); Alkaline Phosphatase 135 IU/L (35-105); Anion Gap 15.7 (5-19); Aspartate Amino Transferase 20 U/L (0-32); Blood Urea Nitrogen 15 mg/dL (8-23); Carbon Dioxide 24 mmol/L (22-29); Chloride 103 mmol/L (98-107); Ferritin 462 ng/mL (15-150); Globulin 3.8 g/dL (1.3-4.6); Glucose 98 mg/dL (65-115); Iron 26 ug/dL (37-145); Osmolality Calculated 284 mOsm/kg (285-295); Percent Saturation 19.6 % (20-50); Potassium 3.7 mmol/L (3.5-5.1); Sodium 139 mmol/L (136-145); Total Bilirubin 0.5 mg/dL (0.15-1.2); Total Iron Binding Capacity 132 mcg/dl; Total Protein 6.4 g/dL (6.6-8.7); Unsaturated Iron Binding 106 ug/dL (112-347)
[2019-08-22 13:15] LABS: Slide Review Slide Review Perform
[2019-08-22 13:17] LABS: Vitamin B12 923 pg/mL (232-1245)
--- NOTE | 2019-08-22 14:46 | ONC FU_ITS ---
Dr. Crump follow up note Patient: Ora De Leon Unit #: [id number]: 1940 Dicatated By: Riya Crump M.D.Date of Visit:Aug 22, 2019 Onc Med Follow-up/Prog Note History of Present Illness: Mrs De Leon is a 79 -year-old female with a history of abnormal chest x-ray with a left upper lobe lung mass. The mass was confirmed with CT scan of chest. Subsequently on 07/05/2019, she underwent bronchoscopy and endobronchial ultrasound-guided transbronchial needle aspiration of lymph nodes. 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 Lymph node aspiration showed benign lymph nodes and cytology from bronchoalveolar lavage and Cytobrush were negative too. She underwent CT PET scan on 06/28/2019 in [place], [place] which showed large metabolic active mass within left upper lobe, mild adjacent nodularity in the left lung may reflect some satellite lesion or inflammation; Mildly enlarged mediastinal lymph nodes with some increase in metabolic activity could represent early metastatic disease; Wedge compression of T12 vertebral body of indeterminate age. Due to poor pulmonary reserve, patient is on home oxygen. She was considered not to be a candidate for surgical resection. Mrs De Leon was offered treatment with combined treatment with radiation therapy and chemotherapy. She began her first week of treatment weekly carboplatin/Taxol concurrent with radiation therapy on 07/26/2019. She has tolerated it well so far. Except recently and last week of July, went to hospital with mental status changes and was diagnosed with aspiration pneumonia, treated with antibiotics and she was also found to be anemic and was given blood transfusion. Came for follow-up, denies any specific complaint except generalized weakness and fatigue, no palpitation no shortness of breath at rest, poor appetite, no hemoptysis or hematemesis, no nausea or vomiting, no headaches blurred vision or double vision.on home oxygen. Medications: Desvenlafaxine ER 1 Tablet (of 50 mg) Tablet SR 24 HR Oral daily, hydroCHLOROthiazide 1 Tablet (of 12.5 mg) Oral daily, Magnesium Citrate 150 mL Solution Oral b.i.d. PRN, Montelukast Sodium 1 Tablet (of 10 mg) Oral daily, Omeprazole 1 Capsule (of 20 mg) Capsule Delayed Release Oral daily, Trelegy Ellipta 1 Puff(s) (of 100-62.5-25 mcg/inh) Aerosol Powder, Breath Activated Inhalation PRN, VESIcare 1 Tablet (of 10 mg) Oral daily Allergies: Codeine Sulfate Review of Systems: Constitutional - Appetite is fair and weight is stable. No fever, chills, hot flashes, or night sweats. Energy level is poor, ENMT - No sinus congestion/drainage. No mouth sores. No sore throat or difficulty swallowing, Hematologic/Lymphatic - Positive for easy bruising and bleeding, Respiratory - Positive for shortness of breath. No cough. No pleuritic pain or hemoptysis, Cardiovascular - No angina pain. No palpitations, Gastrointestinal - No nausea or vomiting. No heartburn or acid reflux. No diarrhea or constipation. No blood in the stool or black stools, Genitourinary (F) - No dysuria or hematuria. No urinary frequency. No urgency or incontinence, Musculoskeletal - Positive for joint pain, Neurologic - No headache or dizziness. No numbness/paresthesias or other focal neurologic symptoms, Psychiatric - No anxiety or depression. No insomnia. Vital Signs: Performed on Aug 22, 2019 12:56 Height - 65.00 in Weight - 143.6 lbs (HIGH) BSA - 1.72 sq.m BMI - 23.90 Temperature - 98.2 F (LOW) Pulse - 82 /min Respiration - 26 /min BP - 126/71 mm(hg) O2 Sat - 89 % (LOW) Pain - 0 Performance Status: 2 - Ambulatory/capable of all self-care, unable to perform any work activities. Up and about more than 50% of waking hours. (ECOG) Physical Examination: Neck - no mouth sores, no thrush, Respiratory - no wheezing or shortness of breath, Cardiovascular - denies tachycardia, Extremities - no edema. Lab/Imaging: Test performed on Aug 08, 2019 12:35 Glucose 80 mg/dL BUN 15 mg/dL Creatinine 0.5 mg/dL Cr Clearance (Est) 97.34 mL/min Sodium 139 mmol/L Potassium 3.6 mmol/L Chloride 100 mmol/L CO2 29 mmol/L Calcium 9.4 mg/dL Protein, Total 6.4 g/dL Albumin 2.7 g/dL Globulin 3.7 g/dL Bilirubin, Total 0.8 mg/dL Alkaline Phosphatase 85 IU/L AST (SGOT) 15 IU/L ALT (SGPT) 13 IU/L WBC 4.4 10^9/L RBC 3.05 10^12/L HGB 8.7 g/dL HCT 28.6 % MCV 93.8 fl MCH 28.5 pg MCHC 30.4 g/dL RDW 14.9 % Platelet Count 234 10^9/L MPV 11 fL Neutrophils (Gran) 3.4 10^9/L Lymphocytes 0.3 10^9/L Monocytes 0.4 10^9/L Eosinophils 0.2 10^9/L Basophils 0 10^9/L Manual Segs 78.6 % Manual Lymphocytes 7.6 % Manual Monocytes 8.7 % Manual Eosinophils 3.9 % Manual Basophils 0.7 % NRBCs 0 /100 WBC Test performed on Aug 01, 2019 14:35 Anion Gap 10.7 Neutrophil % 84.6 % Lymphocyte % 6.9 % Monocyte % 4.2 % Eosinophil % 2.1 % Basophils % 0.9 % Impression: 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 Wedge compression of T12 vertebral body of indeterminate age. Clinical stage COPD, on home oxygen Dementia Essential hypertension discussed with Ms De Leon and her family her disease status and treatment options. Considering Ms De Leon's poor pulmonary reserve, she is not a candidate for surgical resection. The role of combined chemoradiation was discussed in detail, and she was offered weekly carboplatin Taxol concurrent radiation therapy, if tolerated well we'll discuss about 2 cycles of full dose carboplatin/Taxol followed by maintenance therapy with durvalumab for 12 months. Planning to give her carboplatin AUC 2 Taxol 45-50 mg/m??? weekly concurrent with radiation therapy. Plan: Discussed with patient regarding her labs white blood count 5.8 hemoglobin 8.8 crit 28.9 platelets 178,000 CMP within normal limits except creatinine 2.7, ferritin 462 iron 26 vitamin B12 923 Clinically, patient is doing reasonably well, no new signs symptoms, now recovering from aspiration pneumonia. Has completed oral antibiotics. Her follow-up lab shows renal insufficiency etiology unclear could be due to dehydration, patient is not drinking enough fluids, or due to IV contrast as patient recently underwent multiple CT scans. Or could be due to medication, patient denies any problem with urination. patient was advised to drink plenty of fluid We will hold her weekly chemotherapy with carbo and/Taxol and she will continue with daily radiation. We'll repeat her CBC CMP in a week if creatinine improves and patient feels better then we may consider further reduction in her chemotherapy dose to make it tolerable concurrent with radiation therapy. Or considering her age and comorbid condition now requiring multiple hospitalization since started on chemotherapy/radiation, we may discontinue chemotherapy and let her complete radiation therapy alone. Her daughter was on the phone during evaluation and she agreed. Signed By: Riya Crump M.D. <<Signature on File>>
--- NOTE | 2019-08-23 15:51 | ONCRAD TMN_ITS ---
Radiation Oncology Weekly Treatment Management Patient: Ora De Leon MR#: [id number] : 1940 Age: 79 Sex: Female Dictated by: Dr. Kevin Hernández Date of Service: 08/23/2019 Referring Physician(s) : Riya Crump M.D. Primary Diagnosis: C34.12 - Malignant neoplasm of upper lobe, left bronchus or lung, Diagnosed 05/26/2019 (Active) Radiotherapy to date: Course: LT Lung 2019, Treatment Site: LT Lung 46, Ref. ID: [id number], Energy: 6X, Dose/Fx (cGy): 200, #Fx: , Dose Correction (cGy): 0, Total Dose (cGy): 3,200, Start Date: 07/25/2019, Elapsed Days: Current Complaints/Interval History: Current Medications: CARBOplatin, desvenlafaxine ER, dexamethasone, dexamethasone Sodium Phosphate, diclofenac Sodium, diphenhydrAMINE HCl, famotidine in NaCl, hydroCHLOROthiazide, magnesium Citrate, montelukast Sodium, omeprazole, pACLitaxel, palonosetron HCl, pARoxetine HCl ER, prochlorperazine Maleate, trelegy Ellipta, vESIcare. Allergies: Codeine Sulfate. Vital Signs: Performed on 08/23/2019 3:10 PM BMI - 23.53 kg/m2 (high), Height - 65.00 in, Weight - 141.4 lbs, Temperature - 97.8 f, Pulse - 73, Respiration - 22, O2 Sat - 93 % (low), Pain - 0 and BP - 123/ 67 mm(hg). Physical Exam: Appears stable, no skin erythema or desquamation. Performance Status: 3 - Capable of only limited self-care, confined to bed or chair more than 50% of waking hours. (ECOG) Lab: None pending in Radiation Oncology. Imaging: No new diagnostic imaging was performed since the last weekly treatment visit. All radiation therapy related imaging (including but not limited to kV, MV, and CBCT generated images) was reviewed. Appropriate changes, if any, were made to assure accurate target localization. Impression/Plan: Tolerating treatment well with expected side effects. Continue treatment as planned. CPT: 75662 Signed by: Dr. Kevin Hernández>08/23/2019 3:50:42 PM <<Signature on File>>
--- NOTE | 2019-08-30 15:38 | ONCRAD TMN_ITS ---
Radiation Oncology Weekly Treatment Management Patient: Ora De Leon MR#: [id number] : 1940> Age: 79> Sex: Female Dictated by: Dr. Kevin Hernández Date of Service: 08/30/2019 Referring Physician(s) : Riya Crump M.D. Primary Diagnosis: C34.12 - Malignant neoplasm of upper lobe, left bronchus or lung, Diagnosed 05/26/2019 (Active) Radiotherapy to date: Course: LT Lung 2019, Treatment Site: LT Lung 46, Ref. ID: [id number], Energy: 6X, Dose/Fx (cGy): 200, #Fx: , Dose Correction (cGy): 0, Total Dose (cGy): 4,200, Start Date: 07/25/2019, Elapsed Days: 36 Current Complaints/Interval History: Constitutional Complains of lack of appetite but it is improving since being discharged from the hospital. Complains of moderate fatigue. Complains of change in weight in which she is down 9.4 lbs. since last OTV. She had been in the hospital and her appetitie is improving.. Denies fever and night sweats. ENMT Denies dysphagia. Cardiovascular Denies chest pain. Respiratory Complains of cough and dyspnea on 3 to 4 L 02. Denies wheezing. Current Medications: CARBOplatin, desvenlafaxine ER, dexamethasone, dexamethasone Sodium Phosphate, diclofenac Sodium, diphenhydrAMINE HCl, famotidine in NaCl, hydroCHLOROthiazide, magnesium Citrate, montelukast Sodium, omeprazole, pACLitaxel, palonosetron HCl, pARoxetine HCl ER, prochlorperazine Maleate, trelegy Ellipta, vESIcare. Allergies: Codeine Sulfate. Vital Signs: Performed on 08/30/2019 3:12 PM BMI - 21.933 kg/m2, Height - 65.00 in, Weight - 131.8 lbs, Temperature - 98.4 f, Pulse - 92, Respiration - 20, O2 Sat - 94 % (low), Pain - 0 and BP - 112/ 59 mm(hg)(/low). Physical Exam: Appears stable, no skin erythema or desquamation. Performance Status: 3 - Capable of only limited self-care, confined to bed or chair more than 50% of waking hours. (ECOG) Lab: None pending in Radiation Oncology. Test performed on 08/08/2019 12:35 PM Manual Segs - 78.6 % (high), Manual Lymphocytes - 7.6 % (low), Test performed on 08/22/2019 12:18 PM RBC - 3.17 10 6/ul (low), HGB - 8.8 g/dl (low), HCT - 28.9 % (low), MCH - 27.8 pg (low), RDW - 17.2 % (high), Lymphocytes - 0.4 10 3/ul (low), Creatinine - 2.7 mg/dl (high), Cr Clearance (Est) - 17.7300 ml/min (low), Protein, Total - 6.4 g/dl (low), Albumin - 2.6 g/dl (low), Alkaline Phosphatase - 135 iu/l (high), Ferritin - 462 ng/ml (high), Iron - 26 mcg/dl (low), % Iron Saturation - 19.6 % (low) and UIBC - 106 mcg/dl (low). Imaging: No new diagnostic imaging was performed since the last weekly treatment visit. All radiation therapy related imaging (including but not limited to kV, MV, and CBCT generated images) was reviewed. Appropriate changes, if any, were made to assure accurate target localization. Impression/Plan: Tolerating treatment well with expected side effects. Continue treatment as planned. CPT: 53506 Signed by: Dr. Kevin Hernández>08/30/2019 3:37:35 PM <<Signature on File>>
[2019-08-31 13:21] LABS: Hematocrit 30.7 % (37.0-47.0); Hemoglobin 9.5 g/dL (11.5-15.3); Lymphocytes # 0.2 10^3/uL (0.8-4.8); Lymphocytes % 2.2 %; Mean Corpuscular HGB Conc 30.9 g/dL (30.0-36.0); Mean Corpuscular Hemoglobin 27.9 pg (28.0-34.0); Mean Platelet Volume 9.5 fL (7.4-10.4); Monocytes # 0.1 10^3/uL (0.2-0.9); Monocytes % 0.8 %; Neutrophils # 7.4 10^3/uL (1.8-7.7); Neutrophils % 96.5 %; Nucleated Red Blood Cells % 0 %; Platelet Count 196 10^3/cmm (130-400); Red Blood Count 3.41 10^6/uL (4.1-5.3); Red Cell Distribution Width 16.2 % (12.1-15.1); White Blood Count 7.7 10^3/uL (4.0-10.0)
[2019-08-31 13:35] LABS: Alanine Aminotransferase 15 U/L (0-33); Alkaline Phosphatase 111 IU/L (35-105); Anion Gap 15.2 (5-19); Aspartate Amino Transferase 32 U/L (0-32); Blood Urea Nitrogen 11 mg/dL (8-23); Calcium 9.4 mg/dL (8.5-10.5); Carbon Dioxide 31 mmol/L (22-29); Chloride 90 mmol/L (98-107); Globulin 4.6 g/dL (1.3-4.6); Glucose 475 mg/dL (65-115); Osmolality Calculated 293 mOsm/kg (285-295); Potassium 3.2 mmol/L (3.5-5.1); Sodium 133 mmol/L (136-145); Total Bilirubin 0.3 mg/dL (0.15-1.2); Total Protein 7.6 g/dL (6.6-8.7)
--- NOTE | 2019-08-31 15:01 | ONC FU_ITS ---
Dr. Crump follow up note Patient: Ora De Leon Unit #: [id number]: 1940 Dicatated By: Riya Crump M.D.Date of Visit:Aug 31, 2019 Onc Med Follow-up/Prog Note History of Present Illness: Mrs De Leon is a 79 -year-old female with a history of abnormal chest x-ray with a left upper lobe lung mass. The mass was confirmed with CT scan of chest. Subsequently on 07/05/2019, she underwent bronchoscopy and endobronchial ultrasound-guided transbronchial needle aspiration of lymph nodes. 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 Lymph node aspiration showed benign lymph nodes and cytology from bronchoalveolar lavage and Cytobrush were negative too. She underwent CT PET scan on 06/28/2019 in [place], [place] which showed large metabolic active mass within left upper lobe, mild adjacent nodularity in the left lung may reflect some satellite lesion or inflammation; Mildly enlarged mediastinal lymph nodes with some increase in metabolic activity could represent early metastatic disease; Wedge compression of T12 vertebral body of indeterminate age. Due to poor pulmonary reserve, patient is on home oxygen. She was considered not to be a candidate for surgical resection. Mrs De Leon was offered treatment with combined treatment with radiation therapy and chemotherapy. She began her first week of treatment weekly carboplatin/Taxol concurrent with radiation therapy on 07/26/2019. She has tolerated it well so far. Except recently and last week of July, went to hospital with mental status changes and was diagnosed with aspiration pneumonia, treated with antibiotics and she was also found to be anemic and was given blood transfusion. Came for follow-up, denies any specific complaints, except generalized weakness and fatigue, no hemoptysis or hematemesis, no diarrhea constipation, no melena or hematochezia. No fever or chills. Tolerating combined chemoradiation with weekly carboplatin/Taxol reasonably well Medications: Desvenlafaxine ER 1 Tablet (of 50 mg) Tablet SR 24 HR Oral daily, hydroCHLOROthiazide 1 Tablet (of 12.5 mg) Oral daily, Magnesium Citrate 150 mL Solution Oral b.i.d. PRN, Montelukast Sodium 1 Tablet (of 10 mg) Oral daily, Omeprazole 1 Capsule (of 20 mg) Capsule Delayed Release Oral daily, Trelegy Ellipta 1 Puff(s) (of 100-62.5-25 mcg/inh) Aerosol Powder, Breath Activated Inhalation PRN, VESIcare 1 Tablet (of 10 mg) Oral daily Allergies: Codeine Sulfate Review of Systems: Constitutional - Appetite is fair and weight is stable. No fever, chills, hot flashes, or night sweats. Energy level is poor, ENMT - No sinus congestion/drainage. No mouth sores. No sore throat or difficulty swallowing, Hematologic/Lymphatic - Positive for easy bruising and bleeding, Respiratory - Positive for shortness of breath. No cough. No pleuritic pain or hemoptysis, Cardiovascular - No angina pain. No palpitations, Gastrointestinal - No nausea or vomiting. No heartburn or acid reflux. No diarrhea or constipation. No blood in the stool or black stools, Genitourinary (F) - No dysuria or hematuria. No urinary frequency. No urgency or incontinence, Musculoskeletal - Positive for joint pain, Neurologic - No headache or dizziness. No numbness/paresthesias or other focal neurologic symptoms, Psychiatric - No anxiety or depression. No insomnia. Vital Signs: Performed on Aug 31, 2019 14:24 Height - 65.00 in Weight - 130 lbs (LOW) BSA - 1.65 sq.m BMI - 21.63 Temperature - 96.3 F (LOW) Pulse - 90 /min Respiration - 18 /min BP - 113/88 mm(hg) O2 Sat - 95 % (LOW) Pain - 0 Performance Status: 2 - Ambulatory/capable of all self-care, unable to perform any work activities. Up and about more than 50% of waking hours. (ECOG) Physical Examination: ENMT - denies any mouth sores or thrush, Respiratory - denies any shortness of breath or wheezing, she is on home oxygen, Cardiovascular - denies any tachycardia palpitation, Abdomen - denies any abdominal pain or fullness, Extremities - 1+ edema bilaterally. Lab/Imaging: Test performed on Aug 31, 2019 13:05 Sodium 133 mmol/L Potassium 3.2 mmol/L Chloride 90 mmol/L CO2 31 mmol/L Anion Gap 15.2 BUN 11 mg/dL Creatinine 1.5 mg/dL Cr Clearance (Est) 27.85 mL/min Glucose 475 mg/dL Calcium 9.4 mg/dL Protein, Total 7.6 g/dL Albumin 3.0 g/dL Globulin 4.6 g/dL Bilirubin, Total 0.3 mg/dL ALT (SGPT) 15 U/L AST (SGOT) 32 U/L Alkaline Phosphatase 111 IU/L WBC 7.7 10 3/uL RBC 3.41 10 6/uL HGB 9.5 g/dL HCT 30.7 % MCV 90.0 fL MCH 27.9 pg MCHC 30.9 g/dL RDW 16.2 % Platelet Count 196 10 3/cmm MPV 9.5 fL Neutrophils 7.4 10 3/uL Lymphocytes 0.2 10 3/uL Monocytes 0.1 10 3/uL Eosinophils 0.0 10 3/uL Basophils 0.0 10 3/uL Neutrophil % 96.5 % Lymphocyte % 2.2 % Monocyte % 0.8 % Eosinophil % 0.0 % Basophils % 0.0 % Test performed on Aug 22, 2019 12:18 Ferritin 462 ng/mL Iron 26 mcg/dL Vitamin B12 923 pg/mL Iron Binding Capacity (TIBC) 132 mcg/dl % Iron Saturation 19.6 % UIBC 106 mcg/dL CBC Slide Review Slide Review Perform SLIDE REVIEW AGREES WITH AUTO DIFF Test performed on Aug 08, 2019 12:35 Manual Segs 78.6 % Manual Lymphocytes 7.6 % Manual Monocytes 8.7 % Manual Eosinophils 3.9 % Manual Basophils 0.7 % NRBCs 0 /100 WBC Impression: 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 Wedge compression of T12 vertebral body of indeterminate age. Clinical stage COPD, on home oxygen Dementia Essential hypertension discussed with Ms De Leon and her family her disease status and treatment options. Considering Ms De Leon's poor pulmonary reserve, she is not a candidate for surgical resection. The role of combined chemoradiation was discussed in detail, and she was offered weekly carboplatin Taxol concurrent radiation therapy, if tolerated well we'll discuss about 2 cycles of full dose carboplatin/Taxol followed by maintenance therapy with durvalumab for 12 months. Planning to give her carboplatin AUC 2 Taxol 45-50 mg/m??? weekly concurrent with radiation therapy. Plan: Discussed with patient regarding her labs white blood count 7.7 hemoglobin 9.5 crit 30.7 platelets 1 96,000 CMP within normal limit except creatinine 1.5 compared to 2.7 on 08/22/2019 and glucose 475 and potassium 3.2 Clinically, patient is doing reasonably well, tolerating combined chemoradiation with weekly carbo/Taxol well but with expected side effects, generalized weakness or fatigue, hyperglycemia probably due to steroids We'll proceed with next weekly dose of carbo and Taxol today and then she will return to clinic in 1 week with CBC CMP if reasonable, for next weekly carboplatin/Taxol concurrent with radiation therapy Mild/moderate anemia, hemoglobin stable we'll continue to monitor next Hyperglycemia, probably due to steroids, we do One Touch blood sugar if it is still up then will consider sliding scale. Mild hypokalemia, we'll consider potassium supplements. mild renal insufficiency, now improving with hydration^we'll continue to monitor] Signed By: Riya Crump M.D. <<Signature on File>>
[2019-08-31] MEDS: sodium chloride 0.9% 250 ML 75 ML IV (15:07)
[2019-09-05 15:37] LABS: Basophils % 0.3 %; Eosinophils # 0.3 10^3/uL (0.0-0.8); Eosinophils % 4.4 %; Hematocrit 27.9 % (37.0-47.0); Hemoglobin 8.6 g/dL (11.5-15.3); Lymphocytes # 0.3 10^3/uL (0.8-4.8); Lymphocytes % 4.2 %; Mean Corpuscular HGB Conc 30.8 g/dL (30.0-36.0); Mean Corpuscular Hemoglobin 27.9 pg (28.0-34.0); Mean Corpuscular Volume 90.6 fL (81-99); Mean Platelet Volume 10.1 fL (7.4-10.4); Monocytes # 0.1 10^3/uL (0.2-0.9); Monocytes % 1.5 %; Neutrophils # 5.5 10^3/uL (1.8-7.7); Neutrophils % 89.3 %; Nucleated Red Blood Cells % 0 %; Platelet Count 136 10^3/cmm (130-400); Red Blood Count 3.08 10^6/uL (4.1-5.3); Red Cell Distribution Width 16.5 % (12.1-15.1); White Blood Count 6.1 10^3/uL (4.0-10.0)
[2019-09-05 15:52] LABS: Alanine Aminotransferase 18 U/L (0-33); Alkaline Phosphatase 117 IU/L (35-105); Anion Gap 14.3 (5-19); Aspartate Amino Transferase 25 U/L (0-32); Blood Urea Nitrogen 13 mg/dL (8-23); Calcium 9.1 mg/dL (8.5-10.5); Carbon Dioxide 30 mmol/L (22-29); Chloride 98 mmol/L (98-107); Glucose 113 mg/dL (65-115); Osmolality Calculated 285 mOsm/kg (285-295); Potassium 3.3 mmol/L (3.5-5.1); Sodium 139 mmol/L (136-145); Total Bilirubin 0.5 mg/dL (0.15-1.2)
--- NOTE | 2019-09-06 13:56 | ONC FU_ITS ---
Dr. Crump follow up note Patient: Ora De Leon Unit #: [id number]: 1940 Dicatated By: Riya Crump M.D.Date of Visit:Sep 06, 2019 Onc Med Follow-up/Prog Note History of Present Illness: Mrs De Leon is a 79 -year-old female with a history of abnormal chest x-ray with a left upper lobe lung mass. The mass was confirmed with CT scan of chest. Subsequently on 07/05/2019, she underwent bronchoscopy and endobronchial ultrasound-guided transbronchial needle aspiration of lymph nodes. 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 Lymph node aspiration showed benign lymph nodes and cytology from bronchoalveolar lavage and Cytobrush were negative too. She underwent CT PET scan on 06/28/2019 in [place], [place] which showed large metabolic active mass within left upper lobe, mild adjacent nodularity in the left lung may reflect some satellite lesion or inflammation; Mildly enlarged mediastinal lymph nodes with some increase in metabolic activity could represent early metastatic disease; Wedge compression of T12 vertebral body of indeterminate age. Due to poor pulmonary reserve, patient is on home oxygen. She was considered not to be a candidate for surgical resection. Mrs De Leon was offered treatment with combined treatment with radiation therapy and chemotherapy. She began her first week of treatment weekly carboplatin/Taxol concurrent with radiation therapy on 07/26/2019. She has tolerated it well so far. Except recently and last week of July, went to hospital with mental status changes and was diagnosed with aspiration pneumonia, treated with antibiotics and she was also found to be anemic and was given blood transfusion. Came for follow-up, denies any specific complaint except denies weakness and fatigue but no nausea or vomiting no diarrhea constipation no peripheral numbness. No mouth sores. No dysphagia. Tolerating combined chemoradiation with weekly carbo/Taxol well Medications: Desvenlafaxine ER 1 Tablet (of 50 mg) Tablet SR 24 HR Oral daily, hydroCHLOROthiazide 1 Tablet (of 12.5 mg) Oral daily, Magnesium Citrate 150 mL Solution Oral b.i.d. PRN, Montelukast Sodium 1 Tablet (of 10 mg) Oral daily, Omeprazole 1 Capsule (of 20 mg) Capsule Delayed Release Oral daily, Trelegy Ellipta 1 Puff(s) (of 100-62.5-25 mcg/inh) Aerosol Powder, Breath Activated Inhalation PRN, VESIcare 1 Tablet (of 10 mg) Oral daily Allergies: Codeine Sulfate Review of Systems: Constitutional - Appetite is fair and weight is stable. No fever, chills, hot flashes, or night sweats. Energy level is poor, ENMT - No sinus congestion/drainage. No mouth sores. No sore throat or difficulty swallowing, Hematologic/Lymphatic - Positive for easy bruising and bleeding, Respiratory - Positive for shortness of breath. No cough. No pleuritic pain or hemoptysis, Cardiovascular - No angina pain. No palpitations, Gastrointestinal - No nausea or vomiting. No heartburn or acid reflux. No diarrhea or constipation. No blood in the stool or black stools, Genitourinary (F) - No dysuria or hematuria. No urinary frequency. No urgency or incontinence, Musculoskeletal - Positive for joint pain, Neurologic - No headache or dizziness. No numbness/paresthesias or other focal neurologic symptoms, Psychiatric - No anxiety or depression. No insomnia. Vital Signs: Performed on Sep 06, 2019 13:32 Height - 65.00 in Weight - 131.6 lbs (HIGH) BSA - 1.66 sq.m BMI - 21.90 Temperature - 98.0 F (LOW) Pulse - 96 /min Respiration - 14 /min BP - 93/61 mm(hg) O2 Sat - 98 % Pain - 0 Performance Status: 2 - Ambulatory/capable of all self-care, unable to perform any work activities. Up and about more than 50% of waking hours. (ECOG) Physical Examination: ENMT - no mouth sores, Respiratory - Lungs are clear, Cardiovascular - Regular rate and rhythm, Abdomen - Non-tender, non-distended, Good bowel sounds, Extremities - trace edema bilaterally. Lab/Imaging: Test performed on Sep 05, 2019 15:15 Sodium 139 mmol/L Potassium 3.3 mmol/L Chloride 98 mmol/L CO2 30 mmol/L Anion Gap 14.3 BUN 13 mg/dL Creatinine 0.9 mg/dL Cr Clearance (Est) 46.4100 mL/min Glucose 113 mg/dL Calcium 9.1 mg/dL Protein, Total 7.0 g/dL Albumin 3.0 g/dL Globulin 4.0 g/dL Bilirubin, Total 0.5 mg/dL ALT (SGPT) 18 U/L AST (SGOT) 25 U/L Alkaline Phosphatase 117 IU/L WBC 6.1 10 3/uL RBC 3.08 10 6/uL HGB 8.6 g/dL HCT 27.9 % MCV 90.6 fL MCH 27.9 pg MCHC 30.8 g/dL RDW 16.5 % Platelet Count 136 10 3/cmm MPV 10.1 fL Neutrophils 5.5 10 3/uL Lymphocytes 0.3 10 3/uL Monocytes 0.1 10 3/uL Eosinophils 0.3 10 3/uL Basophils 0.0 10 3/uL Neutrophil % 89.3 % Lymphocyte % 4.2 % Monocyte % 1.5 % Eosinophil % 4.4 % Basophils % 0.3 % Test performed on Aug 22, 2019 12:18 Ferritin 462 ng/mL Iron 26 mcg/dL Vitamin B12 923 pg/mL Iron Binding Capacity (TIBC) 132 mcg/dl % Iron Saturation 19.6 % UIBC 106 mcg/dL CBC Slide Review Slide Review Perform SLIDE REVIEW AGREES WITH AUTO DIFF Test performed on Aug 08, 2019 12:35 Manual Segs 78.6 % Manual Lymphocytes 7.6 % Manual Monocytes 8.7 % Manual Eosinophils 3.9 % Manual Basophils 0.7 % NRBCs 0 /100 WBC Impression: 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 Wedge compression of T12 vertebral body of indeterminate age. Clinical stage COPD, on home oxygen Dementia Essential hypertension discussed with Ms De Leon and her family her disease status and treatment options. Considering Ms Beechey's poor pulmonary reserve, she is not a candidate for surgical resection. The role of combined chemoradiation was discussed in detail, and she was offered weekly carboplatin Taxol concurrent radiation therapy, if tolerated well we'll discuss about 2 cycles of full dose carboplatin/Taxol followed by maintenance therapy with durvalumab for 12 months. Planning to give her carboplatin AUC 2 Taxol 45-50 mg/m??? weekly concurrent with radiation therapy. Plan: Discussed with patient regarding her labs white blood count 6.1 globin 8.6 hematocrit 27.9 platelets 136,000 CMP within normal limit except potassium 3.3 Clinically, patient is doing reasonably well, tolerating combined chemoradiation with weekly carboplatin/Taxol well but with expected side effects e.g. progressive fatigue and weakness. We will proceed with the next weekly dose of carbo/Taxol today, then return to clinic in 1 week with CBC CMP, reasonable then proceed with final dose of weekly carbo/Taxol concurrent with radiation therapy. Next Anemia, etiology unclear could be functional iron deficiency with low iron saturation and serum iron but elevated ferritin which could be as an acute phase reactant. We will give her iron supplement on trial basis. Her B12 is within normal range at 923. We'll continue monitor her CBC and consider blood transfusion if hemoglobin drops below 8 g. Signed By: Riya Crump M.D. <<Signature on File>>
[2019-09-06] MEDS: sodium chloride 0.9% 250 ML 75 ML IV (14:26)
[2019-09-06] MEDS: acetaminophen 325 mg Tablet 650 MG PO (14:36)
--- NOTE | 2019-09-07 17:10 | ONCRAD TMN_ITS ---
Radiation Oncology Weekly Treatment Management Patient: Ora De Leon MR#: [id number] : 1940> Age: 79> Sex: Female Dictated by: Dr. Alo Malhotra Date of Service: 09/07/2019 Referring Physician(s) : Riya Crump M.D. Primary Diagnosis: C34.12 - Malignant neoplasm of upper lobe, left bronchus or lung, Diagnosed 05/26/2019 (Active) Radiotherapy to date: Course: LT Lung 2019, Treatment Site: LT Lung 46, Ref. ID: [id number], Energy: 6X, Dose/Fx (cGy): 200, #Fx: , Dose Correction (cGy): 0, Total Dose (cGy): 4,600, Start Date: 07/25/2019, End Date: 09/01/2019, Elapsed Days: 38 Treatment Site: LT Lung 66, Ref. ID: [id number], Energy: 6X, Dose/Fx (cGy): 200, #Fx: , Dose Correction (cGy): 0, Total Dose (cGy): 800, Start Date: 09/02/2019, Elapsed Days: 5 Current Complaints/Interval History: Generally ok. Breathing stable. Eating ok. No sore throat. No smoking. Constitutional Complains of mild fatigue. Denies lack of appetite, fever and night sweats. ENMT Denies dysphagia. Cardiovascular Denies chest pain. Respiratory Complains of cough which is non-productive. Complains of dyspnea is on 3 to 4 L 02. Denies wheezing. Current Medications: CARBOplatin, desvenlafaxine ER, dexamethasone, dexamethasone Sodium Phosphate, diclofenac Sodium, diphenhydrAMINE HCl, famotidine in NaCl, hydroCHLOROthiazide, magnesium Citrate, montelukast Sodium, omeprazole, pACLitaxel, palonosetron HCl, pARoxetine HCl ER, prochlorperazine Maleate, trelegy Ellipta, vESIcare, zofran ODT. Allergies: Codeine Sulfate. Vital Signs: Performed on 09/07/2019 3:26 PM BMI - 22.199 kg/m2, Height - 65.00 in, Weight - 133.4 lbs, Temperature - 98.9 f, Pulse - 89, Respiration - 18, O2 Sat - 96 %, Pain - 0 and BP - 110/ 66 mm(hg). Physical Exam: Appears stable, no skin erythema or desquamation. Performance Status: 2 - Ambulatory/capable of all self-care, unable to perform any work activities. Up and about more than 50% of waking hours. (ECOG) Lab: None pending in Radiation Oncology. Test performed on 08/08/2019 12:35 PM Manual Segs - 78.6 % (high), Manual Lymphocytes - 7.6 % (low), Test performed on 08/22/2019 12:18 PM Ferritin - 462 ng/ml (high), Iron - 26 mcg/dl (low), % Iron Saturation - 19.6 % (low), UIBC - 106 mcg/dl (low), Test performed on 09/05/2019 3:15 PM RBC - 3.08 10 6/ul (low), HGB - 8.6 g/dl (low), HCT - 27.9 % (low), MCH - 27.9 pg (low), RDW - 16.5 % (high), Lymphocytes - 0.3 10 3/ul (low), Monocytes - 0.1 10 3/ul (low), Potassium - 3.3 mmol/l (low), CO2 - 30 mmol/l (high), Cr Clearance (Est) - 46.4100 ml/min (low), Albumin - 3.0 g/dl (low) and Alkaline Phosphatase - 117 iu/l (high). Imaging: No new diagnostic imaging was performed since the last weekly treatment visit. All radiation therapy related imaging (including but not limited to kV, MV, and CBCT generated images) was reviewed. Appropriate changes, if any, were made to assure accurate target localization. Impression/Plan: Tolerating treatment well with expected side effects. Continue treatment as planned. CPT: 99751 Signed by: Dr. Alo Malhotra>09/07/2019 5:09:18 PM <<Signature on File>>
[2019-09-13 15:49] LABS: Basophils % 1.8 %; Eosinophils % 5.5 %; Hematocrit 21.7 % (37.0-47.0); Hemoglobin 6.8 g/dL (11.5-15.3); Lymphocytes # 0.2 10^3/uL (0.8-4.8); Lymphocytes % 27.3 %; Mean Corpuscular HGB Conc 31.3 g/dL (30.0-36.0); Mean Corpuscular Hemoglobin 28.2 pg (28.0-34.0); Mean Platelet Volume 10.2 fL (7.4-10.4); Monocytes # 0.1 10^3/uL (0.2-0.9); Neutrophils % 45.4 %; Nucleated Red Blood Cells % 0 %; Platelet Count 127 10^3/cmm (130-400); Red Blood Count 2.41 10^6/uL (4.1-5.3)
[2019-09-13 16:16] LABS: White Blood Count 0.6 10^3/uL (4.0-10.0)
[2019-09-13 16:17] LABS: Neutrophils # 0.3 10^3/uL (1.8-7.7)
[2019-09-13 16:18] LABS: Slide Review Slide Review Perform
[2019-09-13 16:29] LABS: Alanine Aminotransferase 17 U/L (0-33); Albumin Level 3.1 g/dL (3.5-5.2); Alkaline Phosphatase 139 IU/L (35-105); Anion Gap 16.2 (5-19); Aspartate Amino Transferase 24 U/L (0-32); Blood Urea Nitrogen 11 mg/dL (8-23); Calcium 9.1 mg/dL (8.5-10.5); Carbon Dioxide 27 mmol/L (22-29); Chloride 102 mmol/L (98-107); Globulin 3.6 g/dL (1.3-4.6); Glucose 148 mg/dL (65-115); Osmolality Calculated 293 mOsm/kg (285-295); Potassium 3.2 mmol/L (3.5-5.1); Sodium 142 mmol/L (136-145); Total Bilirubin 0.5 mg/dL (0.15-1.2); Total Protein 6.7 g/dL (6.6-8.7)
--- NOTE | 2019-09-13 17:10 | ONCRAD TMN_ITS ---
Radiation Oncology Weekly Treatment Management Patient: Ora De Leon MR#: [id number] : 1940> Age: 79> Sex: Female Dictated by: Dr. Alo Malhotra Date of Service: 09/13/2019 Referring Physician(s) : Riya Crump M.D. Primary Diagnosis: C34.12 - Malignant neoplasm of upper lobe, left bronchus or lung, Diagnosed 05/26/2019 (Active) Radiotherapy to date: Course: Lung 2019, Treatment Site: LT Lung 46, Ref. ID: [id number], Energy: 6X, Dose/Fx (cGy): 200, #Fx: 23 / 23, Dose Correction (cGy): 0, Total Dose (cGy): 4,600, Start Date: 07/25/2019, Elapsed Days: 38 Treatment Site: LT Lung 66, Ref. ID: [id number], Energy: 6X, Dose/Fx (cGy): 200, #Fx: 8 / 10, Dose Correction (cGy): 0, Total Dose (cGy): 1,600, Start Date: 09/02/2019, Elapsed Days: 11 Current Complaints/Interval History: Always tired. Eating ok with some struggling to maintain intake. Adds Ensure. Some sore throat and using magic mouthwash. Breathing stable. No nausea. Constitutional Complains of lack of appetite. Complains of severe fatigue. Denies fever, night sweats and change in weight which her weight is up and down. ENMT Complains of dysphagia that occurred recently and has Magic Mouthwash. Cardiovascular Denies chest pain. Respiratory Complains of a moderate cough which is productive. Complains of dyspnea on 3 L 02. Complains of wheezing. Current Medications: CARBOplatin, desvenlafaxine ER, dexamethasone, dexamethasone Sodium Phosphate, diclofenac Sodium, diphenhydrAMINE HCl, famotidine in NaCl, hydroCHLOROthiazide, magic Mouthwash, magnesium Citrate, montelukast Sodium, omeprazole, pACLitaxel, palonosetron HCl, pARoxetine HCl ER, prochlorperazine Maleate, trelegy Ellipta, vESIcare, zofran ODT. Allergies: Codeine Sulfate. Vital Signs: Performed on 09/13/2019 3:06 PM BMI - 21.7 kg/m2, Height - 65.00 in, Weight - 130.4 lbs, Temperature - 98.2 f, Pulse - 89, Respiration - 22, O2 Sat - 98 %, Pain - 0 and BP - 93/ 64 mm(hg)(/low). Physical Exam: Appears stable, no skin erythema or desquamation. Performance Status: 2 - Ambulatory/capable of all self-care, unable to perform any work activities. Up and about more than 50% of waking hours. (ECOG) Lab: None pending in Radiation Oncology. Test performed on 08/08/2019 12:35 PM Manual Segs - 78.6 % (high), Manual Lymphocytes - 7.6 % (low), Test performed on 08/22/2019 12:18 PM Ferritin - 462 ng/ml (high), Iron - 26 mcg/dl (low), % Iron Saturation - 19.6 % (low), UIBC - 106 mcg/dl (low), Test performed on 09/05/2019 3:15 PM RBC - 3.08 10 6/ul (low), HGB - 8.6 g/dl (low), HCT - 27.9 % (low), MCH - 27.9 pg (low), RDW - 16.5 % (high), Lymphocytes - 0.3 10 3/ul (low), Monocytes - 0.1 10 3/ul (low), Potassium - 3.3 mmol/l (low), CO2 - 30 mmol/l (high), Cr Clearance (Est) - 46.4100 ml/min (low), Albumin - 3.0 g/dl (low) and Alkaline Phosphatase - 117 iu/l (high). Imaging: No new diagnostic imaging was performed since the last weekly treatment visit. All radiation therapy related imaging (including but not limited to kV, MV, and CBCT generated images) was reviewed. Appropriate changes, if any, were made to assure accurate target localization. Impression/Plan: Tolerating treatment well with expected side effects. Continue treatment as planned. CPT: 96957 Signed by: Dr. Alo Malhotra>09/13/2019 5:08:47 PM <<Signature on File>>
[2019-09-15 13:28] LABS: Hematocrit 22.7 % (37.0-47.0); Hemoglobin 7.2 g/dL (11.5-15.3); Lymphocytes # 0.1 10^3/uL (0.8-4.8); Lymphocytes % 9.7 %; Mean Corpuscular HGB Conc 31.7 g/dL (30.0-36.0); Mean Corpuscular Volume 91.5 fL (81-99); Mean Platelet Volume 10.1 fL (7.4-10.4); Monocytes # 0.1 10^3/uL (0.2-0.9); Monocytes % 6.5 %; Neutrophils % 82.7 %; Nucleated Red Blood Cells % 0 %; Platelet Count 189 10^3/cmm (130-400); Red Blood Count 2.48 10^6/uL (4.1-5.3); Red Cell Distribution Width 16.8 % (12.1-15.1)
[2019-09-15 14:46] LABS: Neutrophils # 0.8 10^3/uL (1.8-7.7); White Blood Count 0.9 10^3/uL (4.0-10.0)
[2019-09-15 14:47] LABS: Slide Review Slide Review Perform
--- NOTE | 2019-09-15 17:47 | ONC FU_ITS ---
Dr. Crump follow up note Patient: Ora De Leon Unit #: [id number]: 1940 Dicatated By: Riya Crump M.D.Date of Visit:Sep 15, 2019 Onc Med Follow-up/Prog Note History of Present Illness: Mrs De Leon is a 79 -year-old female with a history of abnormal chest x-ray with a left upper lobe lung mass. The mass was confirmed with CT scan of chest. Subsequently on 07/05/2019, she underwent bronchoscopy and endobronchial ultrasound-guided transbronchial needle aspiration of lymph nodes. 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 Lymph node aspiration showed benign lymph nodes and cytology from bronchoalveolar lavage and Cytobrush were negative too. She underwent CT PET scan on 06/28/2019 in [place], [place] which showed large metabolic active mass within left upper lobe, mild adjacent nodularity in the left lung may reflect some satellite lesion or inflammation; Mildly enlarged mediastinal lymph nodes with some increase in metabolic activity could represent early metastatic disease; Wedge compression of T12 vertebral body of indeterminate age. Due to poor pulmonary reserve, patient is on home oxygen. She was considered not to be a candidate for surgical resection. Mrs De Leon was offered treatment with combined treatment with radiation therapy and chemotherapy. She began her first week of treatment weekly carboplatin/Taxol concurrent with radiation therapy on 07/26/2019. concluded combined chemoradiation weekly chemotherapy on 09/06/2019 and last dose on 09/13/2019 was not given because of severe neutropenia and patient completed radiation therapy on 09/13/2019. Came for follow-up, denies any specific complaints, no fever or chills, no nausea or vomiting, no diarrhea constipation, mild to moderate fatigue, but no shortness of breath or palpitation, use home oxygen. No hemoptysis or hematemesis, had mild odynophagia but improved with Magic mouthwash given by radiation oncology.Patient will conclude her combined chemoradiation therapy today. Medications: Desvenlafaxine ER 1 Tablet (of 50 mg) Tablet SR 24 HR Oral daily, hydroCHLOROthiazide 1 Tablet (of 12.5 mg) Oral daily, Magnesium Citrate 150 mL Solution Oral b.i.d. PRN, Montelukast Sodium 1 Tablet (of 10 mg) Oral daily, Omeprazole 1 Capsule (of 20 mg) Capsule Delayed Release Oral daily, Trelegy Ellipta 1 Puff(s) (of 100-62.5-25 mcg/inh) Aerosol Powder, Breath Activated Inhalation PRN, VESIcare 1 Tablet (of 10 mg) Oral daily Allergies: Codeine Sulfate Review of Systems: Constitutional - Appetite is fair and weight is stable. No fever, chills, hot flashes, or night sweats. Energy level is fair for her per Pt report, ENMT - No sinus congestion/drainage. No mouth sores. No sore throat or difficulty swallowing, Hematologic/Lymphatic - Positive for easy bruising and bleeding, Respiratory - Positive for shortness of breath. No cough. No pleuritic pain or hemoptysis, Cardiovascular - No angina pain. No palpitations, Gastrointestinal - No nausea or vomiting. No heartburn or acid reflux. No diarrhea or constipation. No blood in the stool or black stools, Genitourinary (F) - No dysuria or hematuria. No urinary frequency. No urgency or incontinence, Musculoskeletal - Positive for joint pain, Neurologic - No headache or dizziness. No numbness/paresthesias or other focal neurologic symptoms, Psychiatric - No anxiety or depression. No insomnia. Vital Signs: Performed on Sep 15, 2019 13:23 Height - 65.00 in Weight - 131.2 lbs (HIGH) BSA - 1.65 sq.m BMI - 21.83 Temperature - 97.4 F (LOW) Pulse - 88 /min Respiration - 16 /min BP - 123/58 mm(hg) O2 Sat - 91 % (LOW) Pain - 0 Performance Status: 2 - Ambulatory/capable of all self-care, unable to perform any work activities. Up and about more than 50% of waking hours. (ECOG) Physical Examination: ENMT - no mouth sores, Respiratory - poor air entry, mild wheezing, Cardiovascular - Regular rate and rhythm of heart, Abdomen - no abdominal pain or distention, Extremities - no visible edema or rash. Lab/Imaging: Test performed on Sep 05, 2019 15:15 Sodium 139 mmol/L Potassium 3.3 mmol/L Chloride 98 mmol/L CO2 30 mmol/L Anion Gap 14.3 BUN 13 mg/dL Creatinine 0.9 mg/dL Cr Clearance (Est) 46.4100 mL/min Glucose 113 mg/dL Calcium 9.1 mg/dL Protein, Total 7.0 g/dL Albumin 3.0 g/dL Globulin 4.0 g/dL Bilirubin, Total 0.5 mg/dL ALT (SGPT) 18 U/L AST (SGOT) 25 U/L Alkaline Phosphatase 117 IU/L WBC 6.1 10 3/uL RBC 3.08 10 6/uL HGB 8.6 g/dL HCT 27.9 % MCV 90.6 fL MCH 27.9 pg MCHC 30.8 g/dL RDW 16.5 % Platelet Count 136 10 3/cmm MPV 10.1 fL Neutrophils 5.5 10 3/uL Lymphocytes 0.3 10 3/uL Monocytes 0.1 10 3/uL Eosinophils 0.3 10 3/uL Basophils 0.0 10 3/uL Neutrophil % 89.3 % Lymphocyte % 4.2 % Monocyte % 1.5 % Eosinophil % 4.4 % Basophils % 0.3 % Test performed on Aug 22, 2019 12:18 Ferritin 462 ng/mL Iron 26 mcg/dL Vitamin B12 923 pg/mL Iron Binding Capacity (TIBC) 132 mcg/dl % Iron Saturation 19.6 % UIBC 106 mcg/dL CBC Slide Review Slide Review Perform SLIDE REVIEW AGREES WITH AUTO DIFF Test performed on Aug 08, 2019 12:35 Manual Segs 78.6 % Manual Lymphocytes 7.6 % Manual Monocytes 8.7 % Manual Eosinophils 3.9 % Manual Basophils 0.7 % NRBCs 0 /100 WBC Impression: 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 Wedge compression of T12 vertebral body of indeterminate age. Clinical stage COPD, on home oxygen Dementia Essential hypertension discussed with Ms De Leon and her family her disease status and treatment options. Considering Ms De Leon's poor pulmonary reserve, she is not a candidate for surgical resection. The role of combined chemoradiation was discussed in detail, and she was offered weekly carboplatin Taxol concurrent radiation therapy, if tolerated well we'll discuss about 2 cycles of full dose carboplatin/Taxol followed by maintenance therapy with durvalumab for 12 months. Planning to give her carboplatin AUC 2 Taxol 45-50 mg/m??? weekly concurrent with radiation therapy. Plan: Discussed with patient regarding her labs white blood count 600 hemoglobin 6.8 hematocrit 21.7 platelets 127,000 ANC 300 CMP within normal limit except potassium 3.2 Clinically, patient is doing reasonably well, tolerating combined chemoradiation with weekly carbo/Taxol well but with expected side effects progressive pancytopenia, today's lab shows severe leukopenia/neutropenia and progressive anemia. In that case we will hold her last weekly chemotherapy in fact consider conclusion of her combined chemoradiation as patient will finish or radiation therapy today. Her repeat CBC showed hemoglobin 7.2 g, no evidence of gross bleeding, patient is not symptomatic, and is reluctant to consider blood transfusion. In that case we will monitor her repeat her CBC in a week and if patient becomes symptomatic or further drop in her hemoglobin may consider blood transfusion otherwise monitor. In the meantime we will also start on prophylactic Levaquin 500 mg by mouth daily and as mentioned above repeat her CBC in a week if no improvement may consider Neupogen. Mild hypokalemia, consider potassium supplement and follow with CMP. X We will consider follow-up CT PET scan in 8 weeks. Next Patient return to clinic in one month with CBC CMP.at that time we'll discuss with her regarding the role of maintenance therapy with durvalumab. Signed By: Riya Crump M.D. <<Signature on File>>
== END 2019-09-15 23:59 | disposition home or self-care (01) ==
LOC: ONCMED 06:46
PROVIDERS: Absent Provider Radiology Radiation Oncology; Family Provider Family Medicine; PCP Family Medicine; Visit Provider Internal Medicine Hematology & Oncology
DX: Z51.0 Encounter for antineoplastic radiation therapy (principal); Z51.11 Encounter for antineoplastic chemotherapy; C34.12 Malignant neoplasm of upper lobe, left bronchus or lung; D64.81 Anemia due to antineoplastic chemotherapy; D70.1 Agranulocytosis secondary to cancer chemotherapy; T45.1X5A Adverse effect of antineoplastic and immunosuppressive drugs, initial encounter; E87.6 Hypokalemia; J44.9 Chronic obstructive pulmonary disease, unspecified; F03.90 Unspecified dementia, unspecified severity, without behavioral disturbance, psychotic disturbance, mood disturbance, and anxiety; I10 Essential (primary) hypertension; Z79.899 Other long term (current) drug therapy; Z99.81 Dependence on supplemental oxygen
CPT/HCPCS: 36591; 36593; 77300; 77336; 77338; 77386; 80053; 82607; 82728; 83540; 83550; 85025; 96367; 96372; 96374; 96413; 96417; 99214; J1100; J1200; J1815; J2469; J2997; J3490; J7030; J7050; J9045; J9267

== ENCOUNTER 2019-10-12 07:45 | Outpatient (RCR) | payer MEDICARE, SELFPAY ==
[2019-09-19 14:23] LABS: Basophils % 0.8 %; Eosinophils % 0.8 %; Hematocrit 26.4 % (37.0-47.0); Lymphocytes # 0.3 10^3/uL (0.8-4.8); Lymphocytes % 5.9 %; Mean Corpuscular HGB Conc 30.3 g/dL (30.0-36.0); Mean Corpuscular Hemoglobin 28.3 pg (28.0-34.0); Mean Corpuscular Volume 93.3 fL (81-99); Mean Platelet Volume 9.7 fL (7.4-10.4); Monocytes # 0.8 10^3/uL (0.2-0.9); Monocytes % 14.7 %; Neutrophils # 3.9 10^3/uL (1.8-7.7); Neutrophils % 76.4 %; Nucleated Red Blood Cells % 0 %; Platelet Count 255 10^3/cmm (130-400); Red Blood Count 2.83 10^6/uL (4.1-5.3); Red Cell Distribution Width 18.9 % (12.1-15.1); White Blood Count 5.1 10^3/uL (4.0-10.0)
[2019-09-19 14:45] LABS: Alanine Aminotransferase 14 U/L (0-33); Alkaline Phosphatase 137 IU/L (35-105); Aspartate Amino Transferase 21 U/L (0-32); Blood Urea Nitrogen 10 mg/dL (8-23); Calcium 9.1 mg/dL (8.5-10.5); Carbon Dioxide 29 mmol/L (22-29); Chloride 99 mmol/L (98-107); Glucose 146 mg/dL (65-115); Osmolality Calculated 289 mOsm/kg (285-295); Sodium 140 mmol/L (136-145); Total Bilirubin 0.5 mg/dL (0.15-1.2)
--- NOTE | 2019-09-20 18:02 | ONC FU_ITS ---
Dr. Crump follow up note Patient: Ora De Leon Unit #: [id number]: 1940 Dicatated By: Riya Crump M.D.Date of Visit:September 20, 2019 Telehealth Progress Note The patient has been informed that the visit may not be secure and acknowledged the information. I have explained the option of participating in a telephone or video visit during [facility] to the patient. After being given an opportunity to ask questions about and discuss this type of visit, the patient verbally consented to proceeding with the telephone/video visit. the patient understands that this service replaces an office visit and they may be billed and /or responsible for any applicable copayments History of Present Illness: Mrs De Leon is a 79 -year-old female with a history of abnormal chest x-ray with a left upper lobe lung mass. The mass was confirmed with CT scan of chest. Subsequently on 07/05/2019, she underwent bronchoscopy and endobronchial ultrasound-guided transbronchial needle aspiration of lymph nodes. 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 Lymph node aspiration showed benign lymph nodes and cytology from bronchoalveolar lavage and Cytobrush were negative too. She underwent CT PET scan on 06/28/2019 in [place], [place] which showed large metabolic active mass within left upper lobe, mild adjacent nodularity in the left lung may reflect some satellite lesion or inflammation; Mildly enlarged mediastinal lymph nodes with some increase in metabolic activity could represent early metastatic disease; Wedge compression of T12 vertebral body of indeterminate age. Due to poor pulmonary reserve, patient is on home oxygen. She was considered not to be a candidate for surgical resection. Mrs De Leon was offered treatment with combined treatment with radiation therapy and chemotherapy. She began her first week of treatment weekly carboplatin/Taxol concurrent with radiation therapy on 07/26/2019. concluded combined chemoradiation weekly chemotherapy on 09/06/2019 and last dose on 09/13/2019 was not given because of severe neutropenia and patient completed radiation therapy on 09/13/2019. Evaluated via tele medicine, patient denies any specific complaint except complaining of painful swallowing and tarun feeling in the mouth otherwise no hemoptysis or hematemesis, no fever or chills, no nausea or vomiting, more energetic and now recovering from combined chemoradiation Medications: Desvenlafaxine ER 1 Tablet (of 50 mg) Tablet SR 24 HR Oral daily, hydroCHLOROthiazide 1 Tablet (of 12.5 mg) Oral daily, Magnesium Citrate 150 mL Solution Oral b.i.d. PRN, Montelukast Sodium 1 Tablet (of 10 mg) Oral daily, Omeprazole 1 Capsule (of 20 mg) Capsule Delayed Release Oral daily, Trelegy Ellipta 1 Puff(s) (of 100-62.5-25 mcg/inh) Aerosol Powder, Breath Activated Inhalation PRN, VESIcare 1 Tablet (of 10 mg) Oral daily Allergies: Codeine Sulfate Review of Systems: Review of Systems is not available for this patient. Vital Signs: Vitals are not available for this patient. Performance Status: 1 - No physically strenuous activity, but ambulatory and able to carry out light or sedentary work (e.g. office work, light house work). (ECOG) Physical Examination: ENMT - denies any mouth sores but ' tarun 'feeling, Respiratory - denies any shortness of breath or wheezing, Cardiovascular - denies any palpitation or tachycardia, Abdomen - denies any abdominal pain or fullness, Extremities - denies any edema. Lab/Imaging: Test performed on September 19, 2019 13:15 Sodium 140 mmol/L Potassium 3.0 mmol/L Chloride 99 mmol/L CO2 29 mmol/L Anion Gap 15.0 BUN 10 mg/dL Creatinine 0.9 mg/dL Cr Clearance (Est) 46.4100 mL/min Glucose 146 mg/dL Calcium 9.1 mg/dL Protein, Total 7.0 g/dL Albumin 3.0 g/dL Globulin 4.0 g/dL Bilirubin, Total 0.5 mg/dL ALT (SGPT) 14 U/L AST (SGOT) 21 U/L Alkaline Phosphatase 137 IU/L WBC 5.1 10 3/uL RBC 2.83 10 6/uL HGB 8.0 g/dL HCT 26.4 % MCV 93.3 fL MCH 28.3 pg MCHC 30.3 g/dL RDW 18.9 % Platelet Count 255 10 3/cmm MPV 9.7 fL Neutrophils 3.9 10 3/uL Lymphocytes 0.3 10 3/uL Monocytes 0.8 10 3/uL Eosinophils 0.0 10 3/uL Basophils 0.0 10 3/uL Neutrophil % 76.4 % Lymphocyte % 5.9 % Monocyte % 14.7 % Eosinophil % 0.8 % Basophils % 0.8 % Test performed on Sep 15, 2019 13:00 CBC Slide Review Slide Review Perform SLIDE REVIEW AGREES WITH AUTO DIFF. 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 Wedge compression of T12 vertebral body of indeterminate age. Clinical stage COPD, on home oxygen Dementia Essential hypertension discussed with Ms De Leon and her family her disease status and treatment options. Considering Ms De Leon's poor pulmonary reserve, she is not a candidate for surgical resection. The role of combined chemoradiation was discussed in detail, and she was offered weekly carboplatin Taxol concurrent radiation therapy, if tolerated well we'll discuss about 2 cycles of full dose carboplatin/Taxol followed by maintenance therapy with durvalumab for 12 months. Plan: Discussed with patient and daughter via telemedicine about her labs white blood count 5100 compared to 900 on 09/15/2019 and hemoglobin 8 g platelets 255,000 CMP within normal limits except potassium 3 Clinically, patient doing reasonably well rather improving from combined chemoradiation . Her follow-up lab shows resolution of severe neutropenia and mild thrombocytopenia and also improving her moderate anemia overall feeling better except painful swallowing which could be due to radiation-induced esophagitis or could be due to superimposed candidal infection, we will try Diflucan 100 milligram by mouth daily for 3 days and patient was also advised to maintain good oral hygiene and avoid spicy food and use Magic mouthwash prescribed by radiation oncology. Mild hypokalemia, we'll consider potassium supplement Patient was advised in case is a worsening of symptoms, she needed to call us otherwise Patient return to clinic in one month with CBC CMP.at that time we'll discuss with her regarding the role of maintenance therapy with durvalumab. Signed By: Riya Crump M.D. <<Signature on File>>
[2019-10-12 16:10] LABS: Basophils # 0.1 10^3/uL (0.0-0.1); Basophils % 1.2 %; Eosinophils # 0.6 10^3/uL (0.0-0.8); Eosinophils % 9.5 %; Hematocrit 30.6 % (37.0-47.0); Hemoglobin 9.1 g/dL (11.5-15.3); Lymphocytes # 0.6 10^3/uL (0.8-4.8); Lymphocytes % 8.6 %; Mean Corpuscular HGB Conc 29.7 g/dL (30.0-36.0); Mean Corpuscular Hemoglobin 31.5 pg (28.0-34.0); Mean Corpuscular Volume 105.9 fL (81-99); Mean Platelet Volume 9.7 fL (7.4-10.4); Monocytes # 0.7 10^3/uL (0.2-0.9); Monocytes % 10.5 %; Neutrophils # 4.5 10^3/uL (1.8-7.7); Neutrophils % 69.6 %; Nucleated Red Blood Cells % 0 %; Platelet Count 280 10^3/cmm (130-400); Red Blood Count 2.89 10^6/uL (4.1-5.3); Red Cell Distribution Width 19.1 % (12.1-15.1); White Blood Count 6.5 10^3/uL (4.0-10.0)
[2019-10-12 18:31] LABS: Alanine Aminotransferase 11 U/L (0-33); Albumin Level 3.1 g/dL (3.5-5.2); Alkaline Phosphatase 113 IU/L (35-105); Anion Gap 14.5 (5-19); Aspartate Amino Transferase 23 U/L (0-32); Blood Urea Nitrogen 8 mg/dL (8-23); Calcium 9.8 mg/dL (8.5-10.5); Carbon Dioxide 29 mmol/L (22-29); Chloride 101 mmol/L (98-107); Globulin 3.6 g/dL (1.3-4.6); Glucose 101 mg/dL (65-115); Osmolality Calculated 288 mOsm/kg (285-295); Potassium 3.5 mmol/L (3.5-5.1); Sodium 141 mmol/L (136-145); Total Bilirubin 0.3 mg/dL (0.15-1.2); Total Protein 6.7 g/dL (6.6-8.7)
== END 2019-10-16 23:59 | disposition home or self-care (01) ==
LOC: ONCMED 07:45
PROVIDERS: Family Provider Family Medicine; PCP Family Medicine; Visit Provider Internal Medicine Hematology & Oncology
DX: C34.12 Malignant neoplasm of upper lobe, left bronchus or lung (principal); R13.10 Dysphagia, unspecified; D64.9 Anemia, unspecified; J44.9 Chronic obstructive pulmonary disease, unspecified; F32.9 Major depressive disorder, single episode, unspecified; I10 Essential (primary) hypertension; Z92.21 Personal history of antineoplastic chemotherapy; Z92.3 Personal history of irradiation; Z99.81 Dependence on supplemental oxygen
CPT/HCPCS: 80053; 85025

== ENCOUNTER 2019-10-25 06:54 | Outpatient (RCR) | payer MEDICARE, SELFPAY ==
[2019-10-24 17:34] LABS: Basophils % 0.5 %; Eosinophils # 1.9 10^3/uL (0.0-0.8); Eosinophils % 24.5 %; Hematocrit 30.6 % (37.0-47.0); Hemoglobin 9.1 g/dL (11.5-15.3); Lymphocytes # 0.5 10^3/uL (0.8-4.8); Lymphocytes % 6.7 %; Mean Corpuscular HGB Conc 29.7 g/dL (30.0-36.0); Mean Corpuscular Hemoglobin 31.7 pg (28.0-34.0); Mean Corpuscular Volume 106.6 fL (81-99); Mean Platelet Volume 10.3 fL (7.4-10.4); Monocytes # 0.6 10^3/uL (0.2-0.9); Monocytes % 7.8 %; Neutrophils # 4.6 10^3/uL (1.8-7.7); Neutrophils % 60.4 %; Nucleated Red Blood Cells % 0 %; Platelet Count 231 10^3/cmm (130-400); Red Blood Count 2.87 10^6/uL (4.1-5.3); Red Cell Distribution Width 14.8 % (12.1-15.1); White Blood Count 7.7 10^3/uL (4.0-10.0)
[2019-10-24 17:48] LABS: Alanine Aminotransferase 15 U/L (0-33); Albumin Level 3.1 g/dL (3.5-5.2); Alkaline Phosphatase 110 IU/L (35-105); Anion Gap 11.5 (5-19); Aspartate Amino Transferase 25 U/L (0-32); Blood Urea Nitrogen 13 mg/dL (8-23); Calcium 8.7 mg/dL (8.5-10.5); Carbon Dioxide 27 mmol/L (22-29); Chloride 108 mmol/L (98-107); Globulin 2.8 g/dL (1.3-4.6); Glucose 114 mg/dL (65-115); Osmolality Calculated 293 mOsm/kg (285-295); Potassium 3.5 mmol/L (3.5-5.1); Sodium 143 mmol/L (136-145); Total Bilirubin 0.2 mg/dL (0.15-1.2); Total Protein 5.9 g/dL (6.6-8.7)
--- NOTE | 2019-10-25 17:42 | ONC FU_ITS ---
Dr. Crump follow up note Patient: Ora De Leon Unit #: [id number]: 1940 Dicatated By: Riya Crump M.D.Date of Visit:Oct 25, 2019 Onc Med Follow-up/Prog Note History of Present Illness: Mrs De Leon is a 79 -year-old female with a history of abnormal chest x-ray with a left upper lobe lung mass. The mass was confirmed with CT scan of chest. Subsequently on 07/05/2019, she underwent bronchoscopy and endobronchial ultrasound-guided transbronchial needle aspiration of lymph nodes. 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 Lymph node aspiration showed benign lymph nodes and cytology from bronchoalveolar lavage and Cytobrush were negative too. She underwent CT PET scan on 06/28/2019 in [place], [place] which showed large metabolic active mass within left upper lobe, mild adjacent nodularity in the left lung may reflect some satellite lesion or inflammation; Mildly enlarged mediastinal lymph nodes with some increase in metabolic activity could represent early metastatic disease; Wedge compression of T12 vertebral body of indeterminate age. Due to poor pulmonary reserve, patient is on home oxygen. She was considered not to be a candidate for surgical resection. Mrs De Leon was offered treatment with combined treatment with radiation therapy and chemotherapy. She began her first week of treatment weekly carboplatin/Taxol concurrent with radiation therapy on 07/26/2019. concluded combined chemoradiation weekly chemotherapy on 09/06/2019 and last dose on 09/13/2019 was not given because of severe neutropenia and patient completed radiation therapy on 09/13/2019. Came for follow-up, complaining of cough with yellowish phlegm but no fever and wheezing for the last 1 week, no hemoptysis or hematemesis, no chest pain, no tachycardia, no nausea or vomiting, no headaches or blurred vision. Medications: Desvenlafaxine ER 1 Tablet (of 50 mg) Tablet SR 24 HR Oral daily, hydroCHLOROthiazide 1 Tablet (of 12.5 mg) Oral daily, Magnesium Citrate 150 mL Solution Oral b.i.d. PRN, Montelukast Sodium 1 Tablet (of 10 mg) Oral daily, Omeprazole 1 Capsule (of 20 mg) Capsule Delayed Release Oral daily, Trelegy Ellipta 1 Puff(s) (of 100-62.5-25 mcg/inh) Aerosol Powder, Breath Activated Inhalation PRN, VESIcare 1 Tablet (of 10 mg) Oral daily Allergies: Codeine Sulfate Review of Systems: Constitutional - Appetite is fair and weight is stable. No fever, chills, hot flashes, or night sweats. Energy level is poor, ENMT - No sinus congestion/drainage. No mouth sores. No sore throat or difficulty swallowing, Hematologic/Lymphatic - Positive for easy bruising and bleeding, Respiratory - Positive for significant shortness of breath, despite being on portable oxygen. No cough. No pleuritic pain or hemoptysis, Cardiovascular - No angina pain. No palpitations, Gastrointestinal - No nausea or vomiting. No heartburn or acid reflux. No diarrhea or constipation. No blood in the stool or black stools, Genitourinary (F) - No dysuria or hematuria. No urinary frequency. No urgency or incontinence, Musculoskeletal - Positive for joint pain, Neurologic - No headache or dizziness. No numbness/paresthesias or other focal neurologic symptoms, Psychiatric - Positive for anxiety, no depression. No insomnia. Vital Signs: Performed on Oct 25, 2019 10:22 Height - 65.00 in Weight - 133.0 lbs (HIGH) BSA - 1.66 sq.m BMI - 22.13 Temperature - 99.5 F (HIGH) Pulse - 95 /min Respiration - 24 /min BP - 120/66 mm(hg) O2 Sat - 92 % (LOW) Pain - 10 Performance Status: 2 - Ambulatory/capable of all self-care, unable to perform any work activities. Up and about more than 50% of waking hours. (ECOG) Physical Examination: ENMT - No mouth sores, no thrush, no jaundice, Respiratory - Bilateral wheezing, occasional rales, Cardiovascular - Regular rate and rhythm of heart, Abdomen - Soft, bowel sounds present, Extremities - 1+ edema bilaterally. Lab/Imaging: Test performed on Oct 24, 2019 16:25 Sodium 143 mmol/L Potassium 3.5 mmol/L Chloride 108 mmol/L CO2 27 mmol/L Anion Gap 11.5 BUN 13 mg/dL Creatinine 0.7 mg/dL Cr Clearance (Est) 59.6700 mL/min Glucose 114 mg/dL Calcium 8.7 mg/dL Protein, Total 5.9 g/dL Albumin 3.1 g/dL Globulin 2.8 g/dL Bilirubin, Total 0.2 mg/dL ALT (SGPT) 15 U/L AST (SGOT) 25 U/L Alkaline Phosphatase 110 IU/L Test performed on Oct 24, 2019 11:52 WBC 7.7 10 3/uL RBC 2.87 10 6/uL HGB 9.1 g/dL HCT 30.6 % MCV 106.6 fL MCH 31.7 pg MCHC 29.7 g/dL RDW 14.8 % Platelet Count 231 10 3/cmm MPV 10.3 fL Neutrophils 4.6 10 3/uL Lymphocytes 0.5 10 3/uL Monocytes 0.6 10 3/uL Eosinophils 1.9 10 3/uL Basophils 0.0 10 3/uL Neutrophil % 60.4 % Lymphocyte % 6.7 % Monocyte % 7.8 % Eosinophil % 24.5 % Basophils % 0.5 % NRBC % 0 % Test performed on Sep 15, 2019 13:00 CBC Slide Review Slide Review Perform SLIDE REVIEW AGREES WITH AUTO DIFF. 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 Wedge compression of T12 vertebral body of indeterminate age. Clinical stage COPD, on home oxygen Dementia Essential hypertension discussed with Ms De Leon and her family her disease status and treatment options. Considering Ms De Leon's poor pulmonary reserve, she is not a candidate for surgical resection. The role of combined chemoradiation was discussed in detail, and she was offered weekly carboplatin Taxol concurrent radiation therapy, if tolerated well we'll discuss about 2 cycles of full dose carboplatin/Taxol followed by maintenance therapy with durvalumab for 12 months. Plan: Discussed with patient regarding her labs white blood count 7.7 hemoglobin 9.1 hematocrit 30.6 platelets 231,000 CMP within normal limits Clinically, patient is doing reasonably well, now with symptoms suggestive of COPD exacerbation, we will start her on Levaquin 500 mg p.o. daily for 1 week along with Medrol Dosepak, patient was advised in case there is no improvement in her symptoms she needs to go to [facility] for evaluation. As far as non-small cell lung cancer is concerned, due to compromised performance status and age, she may not be able to handle full dose carboplatin/Taxol, so patient was recommended maintenance therapy with durvalumab, patient daughter and patient are somewhat reluctant at the same time concerned about recurrence, daughter wants to review information regarding durvalumab, she was given literature and she will discuss with other family members and then decide and also wants to see follow-up CT scan of chest abdomen before she make her decision. We will schedule her for f/u CT scan of chest abdomen in a month. And she will return to clinic in 1 month with CBC and CMP in the meantime we will flush her Port-A-Cath today and then continue every month Signed By: Riya Crump M.D. <<Signature on File>>
== END 2019-11-15 23:59 | disposition home or self-care (01) ==
LOC: ONCMED 06:54
PROVIDERS: PCP Family Medicine; Visit Provider Internal Medicine Hematology & Oncology
DX: C34.12 Malignant neoplasm of upper lobe, left bronchus or lung (principal); N18.9 Chronic kidney disease, unspecified; J44.9 Chronic obstructive pulmonary disease, unspecified; M19.90 Unspecified osteoarthritis, unspecified site; F02.80 Dementia in other diseases classified elsewhere, unspecified severity, without behavioral disturbance, psychotic disturbance, mood disturbance, and anxiety; F32.9 Major depressive disorder, single episode, unspecified; I10 Essential (primary) hypertension; G89.29 Other chronic pain; M54.5 Low back pain; Z45.2 Encounter for adjustment and management of vascular access device
CPT/HCPCS: 36415; 80053; 85025; 96523; 99214

== ENCOUNTER 2019-11-25 07:58 | Outpatient (CLI) | payer MEDICARE, SELFPAY ==
--- NOTE | 2019-11-25 | CT_ITS ---
WS: [id number] CT CHEST AND ABDOMEN TECHNIQUE: Contrast-enhanced CT of the chest and abdomen with coronal and sagittal reformatted images . CLINICAL INFORMATION: LUNG CANCER COMPARISON: CT chest August 13, 2019. CT abdomen pelvis August 06, 2019. CT chest July 05, 2019 DLP: [id number] scans at [facility] use at least one of these dose optimization techniques: automat ed exposure control; mA and/or kV adjustment per patient size (includes targeted exams where dose is matched to clinical indication); or iterative reconstruction. CT CHEST: Again seen is the spiculated 2.6 x 2.9 cm left upper lobe mass consistent with known neoplasm, decrea sed in size since August 13, 2019. Previously this measured approximately 4.6 x 4.4 cm. Soft tissue th ickening extends the left hilum unchanged. New small patchy opacities in the left upper lobe anterior ly inferior to the hilar Mass. These foci measure 1.5 x 1.0 cm and 0.9 x 0.9 CM. These may be inflamm atory but additional satellite disease not entirely excluded. Subsegmental atelectasis in the right greater than left lower lobes. Inflammatory appearing opacities in right lower lobe. Advanced chronic emphysematous changes. No mediastinal or hilar lymphadenopathy. Thyroid gland is normal. Vascular calcification including co ronary. Normal caliber thoracic aorta. Tiny pericardial effusion or pericardial thickening. CT ABDOMEN: Pneumobilia. Cholecystectomy clips. Normal portal vein and splenic vein. Small splenic cyst or bryce ioma unchanged. Adrenal glands are normal. Normal renal parenchymal enhancement. No hydronephrosis. P ancreatic fatty atrophy. Vascular calcification. Slightly ectatic infrarenal abdominal aorta. No evid ence of metastatic disease in the abdomen. No abdominal lymphadenopathy. Biconcave compression at T12 vertebral body. Thoracic scoliosis with kyphosis. CT/CT chest abdomen w con* IMPRESSION: 1. Interval decrease in size in the left upper lobe spiculated mass abutting t he left hilum described above. Today this measures approximately 2.6 x 2.9 CM. Consistent with interval response to therapy 2. New small patchy opacities in left upper lobe anteriorly just inferior to t he left hilar mass. These may be inflammatory however adjacent satellite diseas e not entirely excluded. Opacities measure 0.9-1.5 cm. Recommend continued surv eillance. 3. No mediastinal or hilar lymphadenopathy. 4. No evidence of metastatic disease in the abdomen. 5. Other stable incidental findings described above.
[2019-11-25] MEDS: iohexol 300 mg/mL 50 mL Btl PO (09:12)
[2019-11-25] MEDS: iohexol 300 mg/mL 100 mL Btl IV (09:47)
== END 2019-11-25 07:59 | disposition home or self-care (01) ==
LOC: RADWPI 08:03
PROVIDERS: PCP Family Medicine; Visit Provider Internal Medicine Hematology & Oncology
DX: C34.12 Malignant neoplasm of upper lobe, left bronchus or lung (principal)
CPT/HCPCS: 71260; 74160; Q9967

== ENCOUNTER 2019-12-02 06:48 | Outpatient (RCR) | payer MEDICARE, SELFPAY ==
[2019-11-24 13:03] LABS: Basophils # 0.1 10^3/uL (0.0-0.1); Basophils % 0.7 %; Eosinophils # 0.7 10^3/uL (0.0-0.8); Eosinophils % 9.7 %; Hematocrit 36.9 % (37.0-47.0); Hemoglobin 11.1 g/dL (11.5-15.3); Lymphocytes # 0.5 10^3/uL (0.8-4.8); Lymphocytes % 6.8 %; Mean Corpuscular HGB Conc 30.1 g/dL (30.0-36.0); Mean Corpuscular Hemoglobin 31.2 pg (28.0-34.0); Mean Corpuscular Volume 103.7 fL (81-99); Mean Platelet Volume 10.1 fL (7.4-10.4); Monocytes # 0.6 10^3/uL (0.2-0.9); Monocytes % 8.4 %; Neutrophils # 5.19 10^3/uL (1.8-7.7); Neutrophils % 73.8 %; Nucleated Red Blood Cells % 0 %; Platelet Count 232 10^3/cmm (130-400); Red Blood Count 3.56 10^6/uL (4.1-5.3); Red Cell Distribution Width 12.1 % (12.1-15.1)
[2019-11-24 13:45] LABS: Alanine Aminotransferase 15 U/L (0-33); Albumin Level 3.4 g/dL (3.5-5.2); Alkaline Phosphatase 125 IU/L (35-105); Anion Gap 11.4 (5-19); Aspartate Amino Transferase 28 U/L (0-32); Blood Urea Nitrogen 12 mg/dL (8-23); Calcium 9.4 mg/dL (8.5-10.5); Carbon Dioxide 31 mmol/L (22-29); Chloride 101 mmol/L (98-107); Globulin 3.5 g/dL (1.3-4.6); Glucose 74 mg/dL (65-115); Osmolality Calculated 285 mOsm/kg (285-295); Potassium 3.4 mmol/L (3.5-5.1); Sodium 140 mmol/L (136-145); Total Bilirubin 0.4 mg/dL (0.15-1.2); Total Protein 6.9 g/dL (6.6-8.7)
--- NOTE | 2019-12-02 11:36 | ONC FU_ITS ---
Dr. Crump follow up note Patient: Ora De Leon Unit #: [id number]: 1940 Dicatated By: Riya Crump M.D.Date of Visit:Dec 02, 2019 Onc Med Follow-up/Prog Note History of Present Illness: Mrs De Leon is a 79 -year-old female with a history of abnormal chest x-ray with a left upper lobe lung mass. The mass was confirmed with CT scan of chest. Subsequently on 07/05/2019, she underwent bronchoscopy and endobronchial ultrasound-guided transbronchial needle aspiration of lymph nodes. 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 Lymph node aspiration showed benign lymph nodes and cytology from bronchoalveolar lavage and Cytobrush were negative too. She underwent CT PET scan on 06/28/2019 in [place], [place] which showed large metabolic active mass within left upper lobe, mild adjacent nodularity in the left lung may reflect some satellite lesion or inflammation; Mildly enlarged mediastinal lymph nodes with some increase in metabolic activity could represent early metastatic disease; Wedge compression of T12 vertebral body of indeterminate age. Due to poor pulmonary reserve, patient is on home oxygen. She was considered not to be a candidate for surgical resection. Mrs De Leon was offered treatment with combined treatment with radiation therapy and chemotherapy. She began her first week of treatment weekly carboplatin/Taxol concurrent with radiation therapy on 07/26/2019. concluded combined chemoradiation weekly chemotherapy on 09/06/2019 and last dose on 09/13/2019 was not given because of severe neutropenia and patient completed radiation therapy on 09/13/2019. Came for follow-up, denies any specific complaint, no fever chills, no nausea vomiting, no diarrhea constipation, no hemoptysis hematemesis. , No new bony pains Patient on home oxygen Medications: Advil PM 1 Tablet (of 200-38 mg) Oral at bedtime, Desvenlafaxine ER 1 Tablet (of 50 mg) Tablet SR 24 HR Oral daily, hydroCHLOROthiazide 1 Tablet (of 12.5 mg) Oral daily, Magnesium Citrate 150 mL Solution Oral b.i.d. PRN, Montelukast Sodium 1 Tablet (of 10 mg) Oral daily, Omeprazole 1 Capsule (of 20 mg) Capsule Delayed Release Oral daily, Trelegy Ellipta 1 Puff(s) (of 100-62.5-25 mcg/inh) Aerosol Powder, Breath Activated Inhalation PRN, VESIcare 1 Tablet (of 10 mg) Oral daily Allergies: Codeine Sulfate Review of Systems: Review of Systems is not available for this patient. Vital Signs: Performed on Dec 02, 2019 08:42 Height - 65.00 in Weight - 130.0 lbs (LOW) BSA - 1.65 sq.m BMI - 21.63 Temperature - 98.0 F (LOW) Pulse - 89 /min Respiration - 24 /min BP - 131/68 mm(hg) O2 Sat - 98 % Pain - 0 Performance Status: 2 - Ambulatory/capable of all self-care, unable to perform any work activities. Up and about more than 50% of waking hours. (ECOG) Physical Examination: ENMT - No mouth sores, no thrush or, Respiratory - Poor air entry otherwise clear, Cardiovascular - Regular rate and rhythm of heart, Abdomen - Soft, bowel sounds present, Extremities - Trace edema bilaterally. Lab/Imaging: Test performed on Oct 24, 2019 16:25 Sodium 143 mmol/L Potassium 3.5 mmol/L Chloride 108 mmol/L CO2 27 mmol/L Anion Gap 11.5 BUN 13 mg/dL Creatinine 0.7 mg/dL Cr Clearance (Est) 59.6700 mL/min Glucose 114 mg/dL Calcium 8.7 mg/dL Protein, Total 5.9 g/dL Albumin 3.1 g/dL Globulin 2.8 g/dL Bilirubin, Total 0.2 mg/dL ALT (SGPT) 15 U/L AST (SGOT) 25 U/L Alkaline Phosphatase 110 IU/L Test performed on Oct 24, 2019 11:52 WBC 7.7 10 3/uL RBC 2.87 10 6/uL HGB 9.1 g/dL HCT 30.6 % MCV 106.6 fL MCH 31.7 pg MCHC 29.7 g/dL RDW 14.8 % Platelet Count 231 10 3/cmm MPV 10.3 fL Neutrophils 4.6 10 3/uL Lymphocytes 0.5 10 3/uL Monocytes 0.6 10 3/uL Eosinophils 1.9 10 3/uL Basophils 0.0 10 3/uL Neutrophil % 60.4 % Lymphocyte % 6.7 % Monocyte % 7.8 % Eosinophil % 24.5 % Basophils % 0.5 % NRBC % 0 % Test performed on Sep 15, 2019 13:00 CBC Slide Review Slide Review Perform SLIDE REVIEW AGREES WITH AUTO DIFF. 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 Wedge compression of T12 vertebral body of indeterminate age. Clinical stage COPD, on home oxygen Dementia Essential hypertension discussed with Ms De Leon and her family her disease status and treatment options. Considering Ms De Leon's poor pulmonary reserve, she is not a candidate for surgical resection. The role of combined chemoradiation was discussed in detail, and she was offered weekly carboplatin Taxol concurrent radiation therapy, if tolerated well we'll discuss about 2 cycles of full dose carboplatin/Taxol followed by maintenance therapy with durvalumab for 12 months.Patient and her daughter decided not to consider consolidation with carboplatin/Taxol and maintenance immunotherapy knowing the risk versus benefits Plan: Discussed with patient regarding her labs from November 24, 2019 showed white blood count 7 hemoglobin 11.1 hematocrit 36.9 platelets 232,000 CMP within normal limits except potassium 3.[address] scan of chest abdomen pelvis findings Clinically, patient is doing well with no signs symptom suggestive of disease progression , follow-up CT scan of the chest showed interval decrease in size of left upper lobe spiculated mass abutting the left hilum today measured 2.6 x 2.9 cm compared to 4.6 x 4.4 cm. A new small patchy opacities in the left upper lobe anteriorly just inferior to the left hilar mass could be inflammatory however adjacent satellite disease not entirely excluded and it measures 0.9 x 1.5 cm No mediastinal or hilar lymphadenopathy no evidence of disease in the abdomen. Mild/moderate anemia, now improving earlier discussed with her and her daughter regarding maintenance immunotherapy with durvalumab and daughter was given information/literature about immunotherapy and today she has concluded that considering risk versus benefit, she would not consider immunotherapy considering risk versus benefits. We will respect her decision and continue to monitor and observe she will return to clinic in 3 months with CBC CMP and CT scan of the chest. In the meantime continue with monthly port maintenance. . Signed By: Riya Crump M.D. <<Signature on File>>
[2019-12-02] MEDS: alteplase 1 mg/mL SDV 2 mL 2 MG IV (11:53)
== END 2019-12-16 23:59 | disposition home or self-care (01) ==
LOC: ONCMED 06:48
PROVIDERS: PCP Family Medicine; Visit Provider Internal Medicine Hematology & Oncology
DX: C34.12 Malignant neoplasm of upper lobe, left bronchus or lung (principal); T82.594A Other mechanical complication of infusion catheter, initial encounter; Y80.1 Therapeutic (nonsurgical) and rehabilitative physical medicine devices associated with adverse incidents; D64.9 Anemia, unspecified; J44.9 Chronic obstructive pulmonary disease, unspecified; I10 Essential (primary) hypertension; Z99.81 Dependence on supplemental oxygen; Z92.3 Personal history of irradiation; Z92.21 Personal history of antineoplastic chemotherapy
CPT/HCPCS: 36415; 36593; 80053; 85025; 96374; 96523; 99214; J2997

== ENCOUNTER 2019-12-30 06:34 | Outpatient (RCR) | payer MEDICARE, SELFPAY | END 2020-01-16 23:59 | disposition home or self-care (01) | LOC: ONCMED 06:34 | PROVIDERS: PCP Family Medicine; Visit Provider Internal Medicine Hematology & Oncology | DX: Z45.2 Encounter for adjustment and management of vascular access device (principal) | CPT/HCPCS: 96523 ==

== ENCOUNTER 2020-02-03 06:00 | Outpatient (CLI) | payer MEDICARE, SELFPAY | END 2020-02-03 06:01 | disposition home or self-care (01) | PROVIDERS: PCP Family Medicine; Visit Provider Internal Medicine Hematology & Oncology | DX: Z45.2 Encounter for adjustment and management of vascular access device (principal) | CPT/HCPCS: 96523 ==

== ENCOUNTER 2020-02-28 10:15 | Outpatient (CLI) | payer MEDICARE, SELFPAY ==
--- NOTE | 2020-02-28 10:34 | CT_ITS ---
WS: [id number] CT CHEST TECHNIQUE: Contrast enhanced CT of the chest with coronal and sagittal reformatted images. CLINICAL INFORMATION: LUNG CANCER COMPARISON: CT 11/25/2019 and 08/13/2019 DLP: 540.[address] scans at [facility] use at least one of these dose optimization techniques: automat ed exposure control; mA and/or kV adjustment per patient size (includes targeted exams where dose is matched to clinical indication); or iterative reconstruction. FINDINGS: Moderate chronic emphysematous changes. Again seen is the spiculated left upper lobe mass today measu ring 2.1 x 1.7 cm slightly decreased in size to previous where it measured 2.6 x 2.9 CM. Interval dec rease in size of the previously described anterior left upper lobe satellite opacities essentially re solved. Persistent residual surrounding interstitial infiltrate some of which is likely due to post t herapeutic changes. No mediastinal or hilar lymphadenopathy. Vascular calcification including coronary. Unchanged tiny pe ricardial effusion. No pleural fluid. No axillary lymphadenopathy. Cholecystectomy clips. Adrenal gla nds are normal. Tiny splenic cyst. Upper abdominal vascular calcification. Chronic compression of th e T12 vertebral body unchanged. CT/CT chest w con* [id number] IMPRESSION: 1. Spiculated left upper lobe perihilar mass today measures 1.7 x 2.1 cm decre ased in size from previous where it measured 2.6 x 2.9 cm. 2. Previously described surrounding anterior satellite opacities have essentia lly resolved. Small amount of residual surrounding infiltrate about the left hi lar mass. 3. No mediastinal or hilar lymphadenopathy. 4. Moderate chronic emphysematous changes. 5. No other significant interval changes.
[2020-02-28 11:38] LABS: Blood Urea Nitrogen 15 mg/dL (8-23)
[2020-02-28] MEDS: iohexol 300 mg/mL 100 mL Btl IV (11:55)
== END 2020-02-28 10:16 | disposition home or self-care (01) ==
PROVIDERS: PCP Family Medicine; Visit Provider Internal Medicine Hematology & Oncology
DX: C34.12 Malignant neoplasm of upper lobe, left bronchus or lung (principal); R91.8 Other nonspecific abnormal finding of lung field
CPT/HCPCS: 71260; 82565; 84520; Q9967

== ENCOUNTER 2020-03-01 09:55 | Outpatient (CLI) | payer MEDICARE, SELFPAY ==
[2020-03-01 13:14] LABS: Basophils # 0.1 10^3/uL (0.0-0.1); Basophils % 0.9 %; Eosinophils # 0.6 10^3/uL (0.0-0.8); Eosinophils % 8.5 %; Hematocrit 35.7 % (37.0-47.0); Lymphocytes # 0.8 10^3/uL (0.8-4.8); Lymphocytes % 10.9 %; Mean Corpuscular HGB Conc 30.8 g/dL (30.0-36.0); Mean Corpuscular Hemoglobin 30.6 pg (28.0-34.0); Mean Corpuscular Volume 99.2 fL (81-99); Mean Platelet Volume 10.5 fL (7.4-10.4); Monocytes # 0.5 10^3/uL (0.2-0.9); Monocytes % 6.7 %; Neutrophils # 4.97 10^3/uL (1.8-7.7); Neutrophils % 72.6 %; Nucleated Red Blood Cells % 0 %; Platelet Count 210 10^3/cmm (130-400); Red Cell Distribution Width 13.4 % (12.1-15.1); White Blood Count 6.9 10^3/uL (4.0-10.0)
[2020-03-01 13:38] LABS: Alanine Aminotransferase 33 U/L (0-33); Albumin Level 3.6 g/dL (3.5-5.2); Alkaline Phosphatase 187 IU/L (35-105); Anion Gap 14.2 (5-19); Aspartate Amino Transferase 35 U/L (0-32); Blood Urea Nitrogen 12 mg/dL (8-23); Carbon Dioxide 25 mmol/L (22-29); Chloride 102 mmol/L (98-107); Globulin 2.9 g/dL (1.3-4.6); Glucose 150 mg/dL (65-115); Osmolality Calculated 289 mOsm/kg (285-295); Potassium 3.2 mmol/L (3.5-5.1); Sodium 138 mmol/L (136-145); Total Bilirubin 0.3 mg/dL (0.15-1.2); Total Protein 6.5 g/dL (6.6-8.7)
== END 2020-03-01 09:56 | disposition home or self-care (01) ==
LOC: ONCMED 12:50
PROVIDERS: PCP Family Medicine; Visit Provider Internal Medicine Hematology & Oncology
DX: C34.12 Malignant neoplasm of upper lobe, left bronchus or lung (principal)
CPT/HCPCS: 80053; 85025

== ENCOUNTER 2020-03-02 05:49 | Outpatient (CLI) | payer MEDICARE, SELFPAY ==
--- NOTE | 2020-03-02 10:22 | ONC FU_ITS ---
Dr. Crump follow up note Patient: Ora De Leon Unit #: [id number]: 1940 Dicatated By: Riya Crump M.D.Date of Visit:Mar 02, 2020 Onc Med Follow-up/Prog Note History of Present Illness: Mrs De Leon is a 79 -year-old female with a history of abnormal chest x-ray with a left upper lobe lung mass. The mass was confirmed with CT scan of chest. Subsequently on 07/05/2019, she underwent bronchoscopy and endobronchial ultrasound-guided transbronchial needle aspiration of lymph nodes. 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 Lymph node aspiration showed benign lymph nodes and cytology from bronchoalveolar lavage and Cytobrush were negative too. She underwent CT PET scan on 06/28/2019 in [place], [place] which showed large metabolic active mass within left upper lobe, mild adjacent nodularity in the left lung may reflect some satellite lesion or inflammation; Mildly enlarged mediastinal lymph nodes with some increase in metabolic activity could represent early metastatic disease; Wedge compression of T12 vertebral body of indeterminate age. Due to poor pulmonary reserve, patient is on home oxygen. She was considered not to be a candidate for surgical resection. Mrs De Leon was offered treatment with combined treatment with radiation therapy and chemotherapy. She began her first week of treatment weekly carboplatin/Taxol concurrent with radiation therapy on 07/26/2019. concluded combined chemoradiation weekly chemotherapy on 09/06/2019 and last dose on 09/13/2019 was not given because of severe neutropenia and patient completed radiation therapy on 09/13/2019 .Follow-up CT scan of chest done on February 28, 2020 showed spiculated left upper lobe perihilar mass continues to shrink now 1.7 x 2.1 cm compared to 2.6 x 2.9 on previous scan done on November 25, 2019 Came for follow-up, complaining of off and on dysphagia and choking because of that she is afraid of eating enough and now with progressive weight loss, has seen Dr. Bean analyst microbiology lab lately, as per patient he advised her to eat anything to regain her maintain her weight. Patient denies any hospitalizations or vomiting or nausea patient denies any hemoptysis or hematemesis patient denies any painful swallowing. Denies any jaundice, denies any abdominal pain or melena or hematochezia. Medications: Advil PM 1 Tablet (of 200-38 mg) Oral at bedtime, Trelegy Ellipta 1 Puff(s) (of 100-62.5-25 mcg/inh) Aerosol Powder, Breath Activated Inhalation PRN Allergies: Codeine Sulfate Review of Systems: Review of Systems is not available for this patient. Vital Signs: Performed on Mar 02, 2020 09:45 Height - 65.00 in Weight - 129.4 lbs (LOW) BSA - 1.64 sq.m BMI - 21.53 Temperature - 98.8 F Pulse - 87 /min Respiration - 20 /min BP - 99/55 mm(hg) O2 Sat - 96 % Pain - 0 Performance Status: 2 - Ambulatory/capable of all self-care, unable to perform any work activities. Up and about more than 50% of waking hours. (ECOG) Physical Examination: ENMT - No mouth sores, no thrush, no jaundice, Respiratory - Poor air entry, with mild wheezing, Cardiovascular - Regular rate and rhythm of heart, Abdomen - Soft, bowel sounds present, Extremities - No visible edema. Lab/Imaging: Test performed on Nov 24, 2019 08:45 Sodium 140 mmol/L Potassium 3.4 mmol/L Chloride 101 mmol/L CO2 31 mmol/L Anion Gap 11.4 BUN 12 mg/dL Creatinine 0.7 mg/dL Cr Clearance (Est) 59.6700 mL/min Glucose 74 mg/dL Calcium 9.4 mg/dL Protein, Total 6.9 g/dL Albumin 3.4 g/dL Globulin 3.5 g/dL Bilirubin, Total 0.4 mg/dL ALT (SGPT) 15 U/L AST (SGOT) 28 U/L Alkaline Phosphatase 125 IU/L WBC 7.0 10 3/uL RBC 3.56 10 6/uL HGB 11.1 g/dL HCT 36.9 % MCV 103.7 fL MCH 31.2 pg MCHC 30.1 g/dL RDW 12.1 % Platelet Count 232 10 3/cmm MPV 10.1 fL Neutrophils 5.19 10 3/uL Lymphocytes 0.5 10 3/uL Monocytes 0.6 10 3/uL Eosinophils 0.7 10 3/uL Basophils 0.1 10 3/uL Neutrophil % 73.8 % Lymphocyte % 6.8 % Monocyte % 8.4 % Eosinophil % 9.7 % Basophils % 0.7 % NRBC % 0 % Test performed on Sep 15, 2019 13:00 CBC Slide Review Slide Review Perform SLIDE REVIEW AGREES WITH AUTO DIFF. 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 Wedge compression of T12 vertebral body of indeterminate age. Clinical stage COPD, on home oxygen Dementia Essential hypertension discussed with Ms eD Leon and her family her disease status and treatment options. Considering Ms De Leon's poor pulmonary reserve, she is not a candidate for surgical resection. The role of combined chemoradiation was discussed in detail, and she was offered weekly carboplatin Taxol concurrent radiation therapy,Which she started on July 26, 2019, and last dose of chemo was not given on September 13, 2019 because of severe and persistent neutropenia and patient concluded her radiation therapy on September 13, 2019 discussed about 2 cycles of full dose carboplatin/Taxol followed by maintenance therapy with durvalumab for 12 months.Patient and her daughter decided not to consider consolidation with carboplatin/Taxol and maintenance immunotherapy knowing the risk versus benefits Plan: Discussed with patient regarding her labs white blood count 6.9 hemoglobin 11 hematocrit 35.7 platelets 210,000 CMP within normal limits except potassium 3.2 and glucose [address] scan of chest findings which shows continued improvement in left perihilar mass and no new lesions Clinically, patient denies any signs symptom suggestive of disease progression and her follow-up CT scan of chest shows further improvement in her treated left upper lobe perihilar primary lesion which is now 1.7 x 2.1 cm compared to 2.6 x 2.9 earlier. And no new lesions seen. And other concern is progressive, off and on dysphagia or choking sensation etiology unclear could be due to esophageal stricture due to history of combined chemoradiation for the left perihilar malignancy. At this point will refer her to GI for EGD, if patient has stricture then she may benefit from esophageal dilation. If EGD shows no abnormality, then will consider barium swallow to rule out other pathology. Patient was advised to eat small meals and mechanical soft diet while sitting upright to avoid aspirations. Hypokalemia, etiology unclear, could be nutritional, will give her potassium supplements she will take KCl 20 mEq p.o. daily for 5 days then as needed basis. We will check her magnesium level, if low will supplement. Mild anemia, hemoglobin stable we will continue to monitor Return to clinic in 1 month with CBC CMP . Signed By: Riya Crump M.D. <<Signature on File>>
[2020-03-02 10:36] LABS: Magnesium 1.9 mg/dL (1.7-2.3)
== END 2020-03-02 05:50 | disposition home or self-care (01) ==
LOC: ONCMED 05:51
PROVIDERS: PCP Family Medicine; Visit Provider Internal Medicine Hematology & Oncology
DX: C34.12 Malignant neoplasm of upper lobe, left bronchus or lung (principal); E87.6 Hypokalemia; D64.9 Anemia, unspecified; R59.0 Localized enlarged lymph nodes; R13.10 Dysphagia, unspecified; R09.89 Other specified symptoms and signs involving the circulatory and respiratory systems; J44.9 Chronic obstructive pulmonary disease, unspecified; F03.90 Unspecified dementia, unspecified severity, without behavioral disturbance, psychotic disturbance, mood disturbance, and anxiety; I10 Essential (primary) hypertension; D70.1 Agranulocytosis secondary to cancer chemotherapy; T45.1X5D Adverse effect of antineoplastic and immunosuppressive drugs, subsequent encounter; Z99.81 Dependence on supplemental oxygen
CPT/HCPCS: 83735; 96523; 99214

== ENCOUNTER 2020-03-20 09:20 | Outpatient (CLI) | payer MEDICARE, SELFPAY ==
--- NOTE | 2020-03-20 09:30 | FL_ITS ---
WS: [id number] MODIFIED BARIUM SWALLOW TECHNIQUE: Modified barium swallow with speech therapy using multiple consistencies. FLUOROSCOPY TIME: 2.9 minutes. CLINICAL INFORMATION: R13.10 Dysphagia, unspecified COMPARISON: None. FINDINGS: Prominent cricopharyngeus with indentation on the hypopharynx. No high-grade functional obstruction v isualized. Small amount of penetration with thin liquids. No aspiration. Delayed oropharyngeal phase with early spillage FL/FL barium swallow modifd [id number] IMPRESSION: 1. Prominent cricopharyngeal bar with indentation on the hypopharynx without s ignificant narrowing. 2. Small amount of penetration with thin liquids. 3. No jermain aspiration.
== END 2020-03-20 09:21 | disposition home or self-care (01) ==
LOC: RAD 09:25
PROVIDERS: PCP Family Medicine; Visit Provider Surgery
DX: R13.10 Dysphagia, unspecified (principal)
CPT/HCPCS: 74230; 92611

== ENCOUNTER 2020-04-03 11:05 | Outpatient (CLI) | payer MEDICARE, SELFPAY ==
[2020-04-03 13:38] LABS: Basophils # 0.1 10^3/uL (0.0-0.1); Basophils % 0.8 %; Eosinophils # 0.6 10^3/uL (0.0-0.8); Eosinophils % 8.4 %; Hemoglobin 12.2 g/dL (11.5-15.3); Lymphocytes % 13.8 %; Mean Corpuscular HGB Conc 31.3 g/dL (30.0-36.0); Mean Platelet Volume 10.1 fL (7.4-10.4); Monocytes # 0.5 10^3/uL (0.2-0.9); Monocytes % 7.3 %; Neutrophils # 5.04 10^3/uL (1.8-7.7); Neutrophils % 69.6 %; Nucleated Red Blood Cells % 0 %; Platelet Count 233 10^3/cmm (130-400); Red Blood Count 3.94 10^6/uL (4.1-5.3); Red Cell Distribution Width 12.5 % (12.1-15.1); White Blood Count 7.3 10^3/uL (4.0-10.0)
[2020-04-03 14:16] LABS: Alanine Aminotransferase 37 U/L (0-33); Albumin Level 3.6 g/dL (3.5-5.2); Alkaline Phosphatase 181 IU/L (35-105); Anion Gap 14.3 (5-19); Aspartate Amino Transferase 42 U/L (0-32); Blood Urea Nitrogen 15 mg/dL (8-23); Calcium 9.5 mg/dL (8.5-10.5); Carbon Dioxide 29 mmol/L (22-29); Chloride 99 mmol/L (98-107); Globulin 3.2 g/dL (1.3-4.6); Glucose 110 mg/dL (65-115); Osmolality Calculated 287 mOsm/kg (285-295); Potassium 4.3 mmol/L (3.5-5.1); Sodium 138 mmol/L (136-145); Total Bilirubin 0.4 mg/dL (0.15-1.2); Total Protein 6.8 g/dL (6.6-8.7)
== END 2020-04-03 11:06 | disposition home or self-care (01) ==
LOC: ONCMED 13:58
PROVIDERS: PCP Family Medicine; Visit Provider Internal Medicine Hematology & Oncology
DX: C34.12 Malignant neoplasm of upper lobe, left bronchus or lung (principal)
CPT/HCPCS: 80053; 85025

== ENCOUNTER 2020-04-04 05:52 | Outpatient (CLI) | payer MEDICARE, SELFPAY ==
--- NOTE | 2020-04-04 15:10 | ONC FU_ITS ---
Dr. Crump follow up note Patient: Ora De Leon Unit #: [id number]: 1940 Dicatated By: Riya Crump M.D.Date of Visit:Apr 04, 2020 Onc Med Follow-up/Prog Note History of Present Illness: Mrs De Leon is a 79 -year-old female with a history of abnormal chest x-ray with a left upper lobe lung mass. The mass was confirmed with CT scan of chest. Subsequently on 07/05/2019, she underwent bronchoscopy and endobronchial ultrasound-guided transbronchial needle aspiration of lymph nodes. 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 Lymph node aspiration showed benign lymph nodes and cytology from bronchoalveolar lavage and Cytobrush were negative too. She underwent CT PET scan on 06/28/2019 in [place], [place] which showed large metabolic active mass within left upper lobe, mild adjacent nodularity in the left lung may reflect some satellite lesion or inflammation; Mildly enlarged mediastinal lymph nodes with some increase in metabolic activity could represent early metastatic disease; Wedge compression of T12 vertebral body of indeterminate age. Due to poor pulmonary reserve, patient is on home oxygen. She was considered not to be a candidate for surgical resection. Mrs De Leon was offered treatment with combined treatment with radiation therapy and chemotherapy. She began her first week of treatment weekly carboplatin/Taxol concurrent with radiation therapy on 07/26/2019. concluded combined chemoradiation weekly chemotherapy on 09/06/2019 and last dose on 09/13/2019 was not given because of severe neutropenia and patient completed radiation therapy on 09/13/2019 .Follow-up CT scan of chest done on February 28, 2020 showed spiculated left upper lobe perihilar mass continues to shrink now 1.7 x 2.1 cm compared to 2.6 x 2.9 on previous scan done on November 25, 2019 Barium swallow done on March 20, 2020 showed prominent cricopharyngeal bar with indentation on the hypopharynx without significant narrowing no jermain aspiration Came for follow-up, denies any specific complaint except off and on dysphagia for which she was referred to GI for evaluation, as per patient barium swallow was ordered and waiting for follow-up with GI. Otherwise denies any hemoptysis or hematemesis denies any fever chills denies any nausea or vomiting denies any diarrhea or constipation denies any jaundice denies any headaches blurred vision or double vision denies any new bony pains Medications: Advil PM 1 Tablet (of 200-38 mg) Oral at bedtime, Trelegy Ellipta 1 Puff(s) (of 100-62.5-25 mcg/inh) Aerosol Powder, Breath Activated Inhalation PRN Allergies: Codeine Sulfate Review of Systems: Review of Systems is not available for this patient. Vital Signs: Performed on Apr 04, 2020 14:42 Height - 65.00 in Weight - 125.8 lbs (LOW) BSA - 1.62 sq.m BMI - 20.93 Temperature - 97.2 F (LOW) Pulse - 70 /min Respiration - 18 /min BP - 111/41 mm(hg) O2 Sat - 97 % Pain - 0 Performance Status: 1 - No physically strenuous activity, but ambulatory and able to carry out light or sedentary work (e.g. office work, light house work). (ECOG) Physical Examination: ENMT - No mouth sores, no thrush, no jaundice, Respiratory - Poor air entry otherwise clear, Cardiovascular - Regular rate and rhythm of heart, Abdomen - Soft, bowel sounds present, Extremities - No visible edema. Lab/Imaging: Test performed on Mar 01, 2020 09:55 Magnesium 1.9 mg/dL Sodium 138 mmol/L Potassium 3.2 mmol/L Chloride 102 mmol/L CO2 25 mmol/L Anion Gap 14.2 BUN 12 mg/dL Creatinine 0.8 mg/dL Cr Clearance (Est) 52.2100 mL/min Glucose 150 mg/dL Osmolality - Calculated 289 mOsm/kg Calcium 9.0 mg/dL Protein, Total 6.5 g/dL Albumin 3.6 g/dL Globulin 2.9 g/dL Bilirubin, Total 0.3 mg/dL ALT (SGPT) 33 U/L AST (SGOT) 35 U/L Alkaline Phosphatase 187 IU/L WBC 6.9 10 3/uL RBC 3.60 10 6/uL HGB 11.0 g/dL HCT 35.7 % MCV 99.2 fL MCH 30.6 pg MCHC 30.8 g/dL RDW 13.4 % Platelet Count 210 10 3/cmm MPV 10.5 fL Neutrophils 4.97 10 3/uL Lymphocytes 0.8 10 3/uL Monocytes 0.5 10 3/uL Eosinophils 0.6 10 3/uL Basophils 0.1 10 3/uL Neutrophil % 72.6 % Lymphocyte % 10.9 % Monocyte % 6.7 % Eosinophil % 8.5 % Basophils % 0.9 % NRBC % 0 % Impression: 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 Wedge compression of T12 vertebral body of indeterminate age. Clinical stage COPD, on home oxygen Dementia Essential hypertension discussed with Ms De Leon and her family her disease status and treatment options. Considering Ms De Leon's poor pulmonary reserve, she is not a candidate for surgical resection. The role of combined chemoradiation was discussed in detail, and she was offered weekly carboplatin Taxol concurrent radiation therapy,Which she started on July 26, 2019, and last dose of chemo was not given on September 13, 2019 because of severe and persistent neutropenia and patient concluded her radiation therapy on September 13, 2019 discussed about 2 cycles of full dose carboplatin/Taxol followed by maintenance therapy with durvalumab for 12 months.Patient and her daughter decided not to consider consolidation with carboplatin/Taxol and maintenance immunotherapy knowing the risk versus benefits Plan: Discussed with patient regarding her labs white blood count 7.3 hemoglobin 12.2 hematocrit 39 platelets 233,000 CMP within normal limits Clinically, patient doing well with no new signs symptom suggestive of recurrence of disease her lab work-up looks reasonable, mild anemia, now improved and normalized As far as dysphagia is concerned, patient is being evaluated by GI and her barium swallow study shows prominent cricopharyngeal bar with indentation on the hypopharynx without significant narrowing, patient has follow-up with GI and we will see her back in 3 months with CBC CMP and a follow-up CT scan of chest in the meantime she will continue with monthly port flush . Signed By: Riya Crump M.D. <<Signature on File>>
[2020-04-04] MEDS: alteplase 1 mg/mL SDV 2 mL 2 MG IV (15:47)
== END 2020-04-04 05:53 | disposition home or self-care (01) ==
LOC: ONCMED 05:54
PROVIDERS: PCP Family Medicine; Visit Provider Internal Medicine Hematology & Oncology
DX: C34.12 Malignant neoplasm of upper lobe, left bronchus or lung (principal); R13.13 Dysphagia, pharyngeal phase; J44.9 Chronic obstructive pulmonary disease, unspecified; F03.90 Unspecified dementia, unspecified severity, without behavioral disturbance, psychotic disturbance, mood disturbance, and anxiety; I10 Essential (primary) hypertension; Z92.3 Personal history of irradiation; Z92.21 Personal history of antineoplastic chemotherapy; Z99.81 Dependence on supplemental oxygen
CPT/HCPCS: 36593; 96374; G0463; J2997

== ENCOUNTER 2020-05-07 15:41 | Outpatient (CLI) | payer MEDICARE, SELFPAY | END 2020-05-07 15:42 | disposition home or self-care (01) | LOC: ONCMED 15:44 | PROVIDERS: PCP Family Medicine; Visit Provider Internal Medicine Hematology & Oncology | DX: Z45.2 Encounter for adjustment and management of vascular access device (principal) | CPT/HCPCS: 96523 ==

== ENCOUNTER 2020-06-07 15:42 | Outpatient (CLI) | payer MEDICARE, SELFPAY ==
[2020-06-07] MEDS: alteplase 1 mg/mL SDV 2 mL 2 MG INTRACATH (16:00)
== END 2020-06-07 15:43 | disposition home or self-care (01) ==
PROVIDERS: PCP Family Medicine; Visit Provider Internal Medicine Hematology & Oncology
DX: C34.12 Malignant neoplasm of upper lobe, left bronchus or lung (principal); Z45.2 Encounter for adjustment and management of vascular access device
CPT/HCPCS: 36593; 96374; J2997

== ENCOUNTER 2020-07-10 14:04 | Outpatient (CLI) | payer MEDICARE, SELFPAY ==
[2020-07-10 18:59] LABS: Basophils # 0.1 10^3/uL (0.0-0.1); Basophils % 0.6 %; Hematocrit 36.2 % (37.0-47.0); Lymphocytes # 0.9 10^3/uL (0.8-4.8); Lymphocytes % 11.9 %; Mean Corpuscular HGB Conc 30.4 g/dL (30.0-36.0); Mean Corpuscular Hemoglobin 30.7 pg (28.0-34.0); Mean Corpuscular Volume 101.1 fL (81-99); Mean Platelet Volume 10.2 fL (7.4-10.4); Monocytes # 0.6 10^3/uL (0.2-0.9); Monocytes % 7.1 %; Neutrophils # 5.41 10^3/uL (1.8-7.7); Neutrophils % 68.1 %; Nucleated Red Blood Cells % 0 %; Platelet Count 241 10^3/cmm (130-400); Red Blood Count 3.58 10^6/uL (4.1-5.3); Red Cell Distribution Width 12.6 % (12.1-15.1); White Blood Count 7.9 10^3/uL (4.0-10.0)
[2020-07-10 20:35] LABS: Alanine Aminotransferase 27 U/L (0-33); Albumin Level 3.5 g/dL (3.5-5.2); Alkaline Phosphatase 167 IU/L (35-105); Aspartate Amino Transferase 29 U/L (0-32); Blood Urea Nitrogen 15 mg/dL (8-23); Calcium 9.2 mg/dL (8.5-10.5); Carbon Dioxide 32 mmol/L (22-29); Chloride 102 mmol/L (98-107); Globulin 3.1 g/dL (1.3-4.6); Glucose 87 mg/dL (65-115); Osmolality Calculated 290 mOsm/kg (285-295); Sodium 140 mmol/L (136-145); Total Bilirubin 0.3 mg/dL (0.15-1.2); Total Protein 6.6 g/dL (6.6-8.7)
== END 2020-07-10 14:05 | disposition home or self-care (01) ==
LOC: ONCMED 07-11 07:25
PROVIDERS: PCP Family Medicine; Visit Provider Internal Medicine Hematology & Oncology
DX: C34.12 Malignant neoplasm of upper lobe, left bronchus or lung (principal)
CPT/HCPCS: 80053; 85025

== ENCOUNTER 2020-07-23 12:56 | Outpatient (CLI) | payer MEDICARE, SELFPAY ==
--- NOTE | 2020-07-23 13:02 | CT_ITS ---
WS: [id number] CT CHEST WITH INTRAVENOUS CONTRAST HISTORY: LUNG CANCER TECHNIQUE: Contiguous 5 mm axial imaging performed on the thorax. Coronal and sagittal reformats are submitted. All CT scans at [facility] use at least one of these dose optimization techniq ues: automated exposure control; mA and/or kV adjustment per patient size (includes targeted exams wh ere dose is matched to clinical indication); or iterative reconstruction. CONTRAST: Omnipaque 300; 95 mL IV. DLP: 526.4 mGycm COMPARISON: 02/28/2020 and 11/25/2019 Lungs and central airway: Severe emphysema. Previously described perihilar mass in the LEFT upper lob e has not significantly changed since the prior study. Solid mass measures 1.5 x 2.2 cm. There has be en an increase in the amount of stranding and interstitial extension from that mass since the prior s tudy. There are additional areas of groundglass opacification in the LEFT upper and LEFT lower lobes which are stable and may be post radiation induced changes. Pleura: Mild pleural thickening in the LEFT upper lobe. Heart and pericardium: Heart size is normal. There is a small amount of pericardial fluid or pericard ial thickening. Similar to the prior study. Mediastinum and bessy: No new or increasing lymph nodes. Vessels: Moderate atherosclerosis aorta. Mild ectasia of the aorta but no aneurysm. Mild pulmonary en largement. Chest wall and lower neck: Mediport noted entering through the RIGHT subclavian vein. Upper abdomen: Prior cholecystectomy. Visualized liver is negative. No adrenal mass. Subcentimeter hy podensity in the spleen is probably a small cyst which is stable over several prior studies. Osseous structures: T12 compression fracture is chronic and unchanged since the prior study. CT/CT chest w con* [id number] IMPRESSION: 1. No significant change in size of the LEFT upper lobe neoplasm now measuring 1.5 x 2.2 cm. 2. Increase in the amount of stranding and interstitial thickening surrounding the LEFT upper lobe neoplasm. This may be post radiation induced lung disease. Lymphangitic spread of tumor is not completely excluded. 3. No adenopathy. 4. Severe emphysema. 5. Stable T12 severe compression fracture.
[2020-07-23] MEDS: iohexol 300 mg/mL 100 mL Btl IV (13:20)
== END 2020-07-23 12:57 | disposition home or self-care (01) ==
LOC: RADWPI 12:58
PROVIDERS: PCP Family Medicine; Visit Provider Internal Medicine Hematology & Oncology
DX: C34.12 Malignant neoplasm of upper lobe, left bronchus or lung (principal); S22.080A Wedge compression fracture of T11-T12 vertebra, initial encounter for closed fracture; J43.9 Emphysema, unspecified
CPT/HCPCS: 71260; Q9967

== ENCOUNTER 2020-07-24 13:09 | Outpatient (CLI) | payer MEDICARE, SELFPAY ==
[2020-07-24 17:08] LABS: Basophils % 0.6 %; Eosinophils # 0.7 10^3/uL (0.0-0.8); Eosinophils % 10.6 %; Hematocrit 37.5 % (37.0-47.0); Hemoglobin 11.4 g/dL (11.5-15.3); Lymphocytes # 0.8 10^3/uL (0.8-4.8); Lymphocytes % 11.7 %; Mean Corpuscular HGB Conc 30.4 g/dL (30.0-36.0); Mean Corpuscular Hemoglobin 30.3 pg (28.0-34.0); Mean Corpuscular Volume 99.7 fL (81-99); Mean Platelet Volume 10.1 fL (7.4-10.4); Monocytes # 0.4 10^3/uL (0.2-0.9); Monocytes % 5.9 %; Neutrophils # 4.66 10^3/uL (1.8-7.7); Neutrophils % 70.9 %; Nucleated Red Blood Cells % 0 %; Platelet Count 274 10^3/cmm (130-400); Red Blood Count 3.76 10^6/uL (4.1-5.3); Red Cell Distribution Width 12.6 % (12.1-15.1); White Blood Count 6.6 10^3/uL (4.0-10.0)
[2020-07-24 17:25] LABS: Alanine Aminotransferase 36 U/L (0-33); Albumin Level 3.7 g/dL (3.5-5.2); Alkaline Phosphatase 177 IU/L (35-105); Anion Gap 10.6 (5-19); Aspartate Amino Transferase 32 U/L (0-32); Blood Urea Nitrogen 14 mg/dL (8-23); Calcium 9.5 mg/dL (8.5-10.5); Carbon Dioxide 31 mmol/L (22-29); Chloride 100 mmol/L (98-107); Globulin 3.2 g/dL (1.3-4.6); Glucose 105 mg/dL (65-115); Osmolality Calculated 287 mOsm/kg (285-295); Potassium 3.6 mmol/L (3.5-5.1); Sodium 138 mmol/L (136-145); Total Bilirubin 0.4 mg/dL (0.15-1.2); Total Protein 6.9 g/dL (6.6-8.7)
== END 2020-07-24 13:10 ==
LOC: ONCMED 07-25 09:19
PROVIDERS: PCP Family Medicine; Visit Provider Internal Medicine Hematology & Oncology
DX: C34.12 Malignant neoplasm of upper lobe, left bronchus or lung (principal)
CPT/HCPCS: 80053; 85025

== ENCOUNTER 2020-07-26 05:54 | Outpatient (CLI) | payer MEDICARE, SELFPAY ==
--- NOTE | 2020-07-26 16:33 | ONC FU_ITS ---
Dr. Crump follow up note Patient: Ora De Leon Unit #: [id number]: 1940 Dicatated By: Riya Crump M.D.Date of Visit:Jul 26, 2020 Onc Med Follow-up/Prog Note History of Present Illness: Mrs De Leon is a 79 -year-old female with a history of abnormal chest x-ray with a left upper lobe lung mass. The mass was confirmed with CT scan of chest. Subsequently on 07/05/2019, she underwent bronchoscopy and endobronchial ultrasound-guided transbronchial needle aspiration of lymph nodes. 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 Lymph node aspiration showed benign lymph nodes and cytology from bronchoalveolar lavage and Cytobrush were negative too. She underwent CT PET scan on 06/28/2019 in [place], [place] which showed large metabolic active mass within left upper lobe, mild adjacent nodularity in the left lung may reflect some satellite lesion or inflammation; Mildly enlarged mediastinal lymph nodes with some increase in metabolic activity could represent early metastatic disease; Wedge compression of T12 vertebral body of indeterminate age. Due to poor pulmonary reserve, patient is on home oxygen. She was considered not to be a candidate for surgical resection. Mrs De Leon was offered treatment with combined treatment with radiation therapy and chemotherapy. She began her first week of treatment weekly carboplatin/Taxol concurrent with radiation therapy on 07/26/2019. concluded combined chemoradiation weekly chemotherapy on 09/06/2019 and last dose on 09/13/2019 was not given because of severe neutropenia and patient completed radiation therapy on 09/13/2019 .Follow-up CT scan of chest done on February 28, 2020 showed spiculated left upper lobe perihilar mass continues to shrink now 1.7 x 2.1 cm compared to 2.6 x 2.9 on previous scan done on November 25, 2019 Barium swallow done on March 20, 2020 showed prominent cricopharyngeal bar with indentation on the hypopharynx without significant narrowing no jermain aspiration Follow-up CT scan of chest done on July 23, 2020 showed no significant change in the size of left upper lobe neoplasm no 1.5 x 2.2 cm. Increase in the amount of stranding and interstitial thickening surrounding the left upper lobe neoplasm this may be post radiation-induced lung changes or lymphangitic spread of tumor is not completely excluded. No mediastinal lymphadenopathy but severe emphysema and stable T12 severe compression fracture. Came for follow-up, denies any specific complaint except generalized weakness and fatigue, no nausea or vomiting no diarrhea or constipation, mild cough with whitish phlegm, no fever chills, no hemoptysis hematemesis, no jaundice, no headaches, Medications: Advil PM 1 Tablet (of 200-38 mg) Oral at bedtime, Trelegy Ellipta 1 Puff(s) (of 100-62.5-25 mcg/inh) Aerosol Powder, Breath Activated Inhalation PRN Allergies: Codeine Sulfate Review of Systems: Review of Systems is not available for this patient. Vital Signs: Performed on Jul 26, 2020 15:59 Height - 65.00 in Temperature - 98.3 F (LOW) Pulse - 67 /min Respiration - 17 /min BP - 109/63 mm(hg) O2 Sat - 97 % Pain - 0 Performance Status: 2 - Ambulatory/capable of all self-care, unable to perform any work activities. Up and about more than 50% of waking hours. (ECOG) Physical Examination: ENMT - No mouth sores, no thrush, no jaundice, Respiratory - Poor air entry otherwise clear, Cardiovascular - Regular rate and rhythm of heart, Abdomen - Soft, bowel sounds present, Extremities - No visible edema. Lab/Imaging: Test performed on Jul 10, 2020 14:04 Sodium 140 mmol/L Potassium 4.0 mmol/L Chloride 102 mmol/L CO2 32 mmol/L Anion Gap 10.0 BUN 15 mg/dL Creatinine 0.6 mg/dL Cr Clearance (Est) 69.6200 mL/min Glucose 87 mg/dL Osmolality - Calculated 290 mOsm/kg Calcium 9.2 mg/dL Protein, Total 6.6 g/dL Albumin 3.5 g/dL Globulin 3.1 g/dL Bilirubin, Total 0.3 mg/dL ALT (SGPT) 27 U/L AST (SGOT) 29 U/L Alkaline Phosphatase 167 IU/L WBC 7.9 10 3/uL RBC 3.58 10 6/uL HGB 11.0 g/dL HCT 36.2 % MCV 101.1 fL MCH 30.7 pg MCHC 30.4 g/dL RDW 12.6 % Platelet Count 241 10 3/cmm MPV 10.2 fL Neutrophils 5.41 10 3/uL Lymphocytes 0.9 10 3/uL Monocytes 0.6 10 3/uL Eosinophils 1.0 10 3/uL Basophils 0.1 10 3/uL Neutrophil % 68.1 % Lymphocyte % 11.9 % Monocyte % 7.1 % Eosinophil % 12.0 % Basophils % 0.6 % NRBC % 0 % Test performed on Mar 01, 2020 09:55 Magnesium 1.9 mg/dL Impression: 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 Wedge compression of T12 vertebral body of indeterminate age. Clinical stage COPD, on home oxygen Dementia Essential hypertension discussed with Ms De Leon and her family her disease status and treatment options. Considering Ms De Leon's poor pulmonary reserve, she is not a candidate for surgical resection. The role of combined chemoradiation was discussed in detail, and she was offered weekly carboplatin Taxol concurrent radiation therapy,Which she started on July 26, 2019, and last dose of chemo was not given on September 13, 2019 because of severe and persistent neutropenia and patient concluded her radiation therapy on September 13, 2019 discussed about 2 cycles of full dose carboplatin/Taxol followed by maintenance therapy with durvalumab for 12 months.Patient and her daughter decided not to consider consolidation with carboplatin/Taxol and maintenance immunotherapy knowing the risk versus benefits Follow-up CT scan of chest done on July 23, 2020 showed no significant change in the size of left upper lobe neoplasm measuring 1.5 x 2.2 cm. Increasing amount of stranding and interstitial thickening surrounding left upper lobe mass could be postradiation induced changes but lymphangitic spread is not completely excluded. No mediastinal lymphadenopathy. Severe emphysema and stable T12 severe compression fracture. Plan: Discussed with patient regarding her labs white blood count 6.6 hemoglobin 11.4 compared to 11 g on July 10, 2020 hematocrit 37.5 platelets 274,000 CMP within normal limits and CT scan of chest which showed stable left upper lobe nodule no mediastinal lymphadenopathy Clinically, patient is doing reasonably well, her follow-up labs shows no significant abnormality except mild anemia which is improving and follow-up CT scan of chest shows stable left upper lobe nodule but increased stranding and interstitial changes around the mass could be radiation-induced changes are lymphangitic spread as per radiology. CT PET scan was recommended but patient would not consider as last time it caused her $1000 [id number] and she cannot afford it in that case we will repeat her CT scan of chest in 3 months and she return to clinic in 3 months with CBC CMP and CT scan of chest. . Signed By: Riya Crump M.D. <<Signature on File>>
== END 2020-07-26 05:55 | disposition home or self-care (01) ==
LOC: ONCMED 05:56
PROVIDERS: PCP Family Medicine; Visit Provider Internal Medicine Hematology & Oncology
DX: C34.12 Malignant neoplasm of upper lobe, left bronchus or lung (principal); J43.9 Emphysema, unspecified; M48.54XD Collapsed vertebra, not elsewhere classified, thoracic region, subsequent encounter for fracture with routine healing; D63.0 Anemia in neoplastic disease; Z92.3 Personal history of irradiation; Z92.21 Personal history of antineoplastic chemotherapy
CPT/HCPCS: 96523; 99214

== ENCOUNTER 2020-09-10 15:38 | Outpatient (CLI) | payer MEDICARE, SELFPAY | END 2020-09-10 15:39 | disposition home or self-care (01) | PROVIDERS: PCP Family Medicine; Visit Provider Internal Medicine Hematology & Oncology | DX: C34.12 Malignant neoplasm of upper lobe, left bronchus or lung (principal) | CPT/HCPCS: 36591 ==

== ENCOUNTER 2020-09-26 12:33 | Inpatient (IN) | payer MEDICARE, SELFPAY ==
[2020-09-26] VITALS (12 sets, daily range): BP systolic 106–155; BP diastolic 55–80; PULSE 74–96; RESP 17–24; TEMP 36.4–36.5; O2SAT 97–100; BMI 20.3
--- NOTE | 2020-09-26 13:04 | XR_ITS ---
WS: [id number] Portable AP upright chest, 09/26/2020 Clinical Data: dyspnea Comparison: Portable chest, 08/13/2019. CT chest, 07/23/2020. Findings: There is scarring in the left upper lobe which obscures the mass described on the CT chest. The heart and mediastinum are shifted from right to left. The diaphragms are flattened. The heart is normal. The aortic arch and descending aorta show calcification and tortuosity. There is an infusion catheter on the right ending in the superior vena cava. No nodules or effusions are seen. The heart is normal. XR/XR chest 1V portable [id number] Impression: 1. Scarring in the left upper lobe from the hilum to the pleura causing a shift of mediastinum from right to left. 2. Hyperinflation. 3. Atherosclerosis.
--- NOTE | 2020-09-26 13:09 | ECG_ITS ---
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 Measurements Intervals [place] Rate: 77 P: 87 DE: 136 QRS: 46 QRSD: 82 T: 73 QT: 360 QTc: 409 Interpretive Statements SINUS RHYTHM WITH OCCASIONAL ECTOPIC PREMATURE COMPLEXES MODERATE ST DEPRESSION [0.05+ mV ST DEPRESSION] Compared to ECG 08/06/2019 11:27:09 Sinus tachycardia no longer present ST (T wave) deviation still present Electronically Signed On 09-26-2020 18:21:28 CDT by Silvia Ny M.D. [id number]
[2020-09-26 13:18] LABS: Basophils # 0.1 10^3/uL (0.0-0.1); Basophils % 0.7 %; Eosinophils # 0.7 10^3/uL (0.0-0.8); Eosinophils % 9.7 %; Hematocrit 39.7 % (37.0-47.0); Lymphocytes % 14.2 %; Mean Corpuscular HGB Conc 30.2 g/dL (30.0-36.0); Mean Corpuscular Hemoglobin 30.8 pg (28.0-34.0); Mean Corpuscular Volume 102.1 fL (81-99); Mean Platelet Volume 9.7 fL (7.4-10.4); Monocytes # 0.6 10^3/uL (0.2-0.9); Monocytes % 9.2 %; Neutrophils # 4.57 10^3/uL (1.8-7.7); Neutrophils % 66.1 %; Nucleated Red Blood Cells % 0 %; Platelet Count 249 10^3/cmm (130-400); Red Blood Count 3.89 10^6/uL (4.1-5.3); Red Cell Distribution Width 12.7 % (12.1-15.1); White Blood Count 6.9 10^3/uL (4.0-10.0)
[2020-09-26] MEDS: ipratropium-albuterol 3 mL Neb INHALATION ×2 (13:22→23:17)
[2020-09-26] MEDS: cefTRIAXone 1,000 MG in sodium chloride 0.9% (plus) 50 ML 100 MG IV (13:27)
[2020-09-26 13:37] LABS: ABG PCO2 50.3 mmHg (35-45); Base Excess ABG 5.4 mmol/L (-2.0-2.0); Blood Gas Allen Test Pos; Blood Gas Operator Identificat ED; Blood Gas Sample Site Radial, right; Blood Gas Sample Type Arterial; Carboxyhemoglobin 0.6 %THgb (0.4-20.1); HCO3 ABG 31.2 mmol/L (22-26); HGB O2 Sat 97.9 % (95-100); Methemoglobin 0.8 % (0.4-1.5); Oxygen Device NC; Total Hemoglobin 11.4 g/dL (12-16)
[2020-09-26 13:44] LABS: Lactate (Lactic Acid level) 1.1 mmol/L (0.5-2.2)
[2020-09-26 13:48] LABS: Troponin(5th) Baseline 10 ng/L (0-10)
[2020-09-26 13:53] LABS: Alanine Aminotransferase 37 U/L (0-33); Albumin Level 3.6 g/dL (3.5-5.2); Alkaline Phosphatase 203 IU/L (35-105); Blood Urea Nitrogen 21 mg/dL (8-23); Calcium 9.1 mg/dL (8.5-10.5); Carbon Dioxide 28 mmol/L (22-29); Chloride 106 mmol/L (98-107); Globulin 2.7 g/dL (1.3-4.6); Glucose 102 mg/dL (65-115); NT Pro B Type Natriuretic Pept 247 pg/mL (0-450); Osmolality Calculated 297 mOsm/kg (285-295); Sodium 142 mmol/L (136-145); Total Bilirubin 0.3 mg/dL (0.15-1.2); Total Protein 6.3 g/dL (6.6-8.7)
[2020-09-26 13:55] LABS: Anion Gap 12.5 (5-19); Aspartate Amino Transferase 39 U/L (0-32); Potassium 4.5 mmol/L (3.5-5.1)
[2020-09-26 14:25] LABS: D Dimer 0.64 ug/mIFEU (0-0.59)
--- NOTE | 2020-09-26 15:05 | PC.NURSE ---
pt declines to provide a urine sample. MD Valadez notified.
--- NOTE | 2020-09-26 15:09 | ECG_ITS ---
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 Measurements Intervals [place] Rate: 79 P: 84 MO: 144 QRS: 49 QRSD: 82 T: 71 QT: 369 QTc: 424 Interpretive Statements SINUS RHYTHM WITH OCCASIONAL ECTOPIC PREMATURE COMPLEXES Compared to ECG 09/26/2020 13:37:22 ST (T wave) deviation no longer present Electronically Signed On 09-26-2020 18:26:28 CDT by Silvia Ny M.D. [id number]
[2020-09-26 15:10] LABS: SARS Covid-2 Antigen Negative (Negative)
[2020-09-26 15:48] LABS: Add Urine Microscopic? NO; Charge for UA Resulting for Rev
[2020-09-26 15:52] LABS: Troponin 5 2HR 7.42 ng/L (0-10); Troponin 5 2HR Delta -2.58 ABS# (0-10)
[2020-09-26 15:52] LABS: Bilirubin Urine Neg (Negative); Blood Urine Neg (Negative); Glucose Urine UA Norm (Normal); Ketones Urine Negative (Negative); Leukocyte Esterase Urine Negative (Negative); Nitrate Urine Negative (Negative); Protein Urine Neg (Negative); Specific Gravity, Urine 1.025 (1.005-1.030); Urine Appearance Clear (CLEAR); Urine Color Yellow (Yellow); Urobilinogen Urine 1 mg/dL (Negative); pH Urine 6 (5-7)
--- NOTE | 2020-09-26 16:29 | PM.HP ---
Providers/Chief Complaint Primary Care Provider: Nestor Cross MD Chief Complaint: O2 Saturation Levels Low/Trouble Breathing History of Present Illness Ora De Leon is a 80 year old female with past medical history of COPD Gold class D, on 4 L of oxygen, moderately differentiated squamous cell carcinoma left lung, s/p chemoradiation ( weekly carboplatin/Taxol concurrent with radiation therapy on 07/26/2019. concluded combined chemoradiation weekly chemotherapy on 09/06/2019 and last dose on 09/13/2019 was not given because of severe neutropenia and patient completed radiation therapy on 09/13/2019 , Follow-up CT scan of chest done on July 23, 2020 showed no significant change in the size of left upper lobe neoplasm no 1.5 x 2.2 cm. Increase in the amount of stranding and interstitial thickening surrounding the left upper lobe neoplasm this may be post radiation-induced lung changes or lymphangitic spread of tumor is not completely excluded. No mediastinal lymphadenopathy but severe emphysema and stable T12 severe compression fracture) Came in today with chief complaint of worsening shortness of breath, cough, whitish sputum, going on for the last couple of days, daughter also told that she was febrile today.Daughter is also complaining of progressive deterioration in her voice going on for the last 1 month.She has recently seen ENT as an outpatient for intermittent dysphagia and rare aspiration issues, the plan was to do flexible laryngoscopy, which the patient has refused, she had a recent modified barium study done prominent cricopharyngeus muscle bar. It is not obstructing. Upon arrival in the ER she was found for above-mentioned complaint: X-ray chest: Is Consistent with chronic changes ( Scarring in the left upper lobe from the hilum to the pleura causing a shift of mediastinum from right to left.) EKG: Sinus rhythm with occasional PACs ABG: Ph : 7.40, PCO2: 50, PO2:127, FiO2:36 % Pertinent labs: CBC is normal, slightly elevated AST ALT and alk phos, normal BUN and creatinine, normal serum potassium, normal serum sodium. Serum bicarbonate normal. Troponin: Baseline:10, 2h : 7.42, 2-hour delta: -2.58 Urinalysis: Clean ECA medications: Ceftriaxone 1 g IV, x1 dose, Solu-Medrol 125 mg IV x1 dose, Cliff's Review of Systems Const: Denies: chills Card: Denies: palpitations, edema, swelling of feet/ankles or leg pain with exertion Resp: Denies: pain on inspiration GI: Denies: abdominal pain, nausea, vomiting, diarrhea or constipation : Denies: flank pain Musc: Denies: back pain, extremity pain or extremity swelling Neuro: Denies: headache(s), difficulty walking or confusion Medications/Allergies Home Medications Medication Instructions Recorded Confirmed Last Taken Type ibuprofen 200 mg capsule 600 mg PO DAILY PRN cap 04/27/20 09/26/20 09/26/20 History loratadine [Claritin] 10 mg PO DAILY PRN 09/26/20 09/26/20 09/25/20 History Allergies Allergy/AdvReac Type Severity Reaction Status Date / Time codeine AdvReac Severe ADR-Vomitin Verified 04/27/20 15:31 g PFSH Acute PFSH: Medical History (Updated 09/26/20 @ 17:53 by Tree Galdamez MD) Chronic back pain Chronic back pain Chronic kidney disease, stage II (mild) CKD (chronic kidney disease), stage II COPD (chronic obstructive pulmonary disease) COPD (chronic obstructive pulmonary disease) Degenerative joint disease Dementia Dementia Depression Depression DJD (degenerative joint disease) of cervical spine Essential (primary) hypertension Lung cancer Squamous cell cancer Lung mass Oxygen dependent Urinary incontinence Surgical History H/O tubal ligation History of appendectomy History of appendectomy History of cholecystectomy History of ERCP History of surgical procedure on eye proper using laser Hx of cholecystectomy S/P ERCP Tubal ligation status Family History Brother Cancer Lung cancer and diabetes Mother Psychiatric illness Schizophrenia Sister Hypertension Other Diabetes Social History Smoking and tobacco status: former smoker Quit status (tobacco): has quit using tobacco Year quit tobacco: 2016 Former quit date comment: But smoking 4 years ago Alcohol intake: current Alcohol intake frequency: few times a month Alcohol type: wine Caregiver/support person: Yes Lives independently: Yes Household members: family and children Housing: House Marital status: / Current occupational status: disabled History of recent travel: No Current gender identity: Female Vitals/I&O/Wt Last Vital Signs Temp 97.7 F 09/26/20 12:53 Pulse 88 09/26/20 15:51 Resp 22 H 09/26/20 15:51 BP 155/55 09/26/20 15:51 Pulse Ox 99 09/26/20 15:51 Weight last 48 hrs Weight 57.153 kg Physical Exam Const: COMMON NORMALS: patient oriented x3 HENMT: COMMON NORMALS: normocephalic and atraumatic HEAD & SCALP: normocephalic and atraumatic Resp: EFFORT & INSPECTION: Yes symmetric chest movement AUSCULTATION: clear to auscultation bilaterally OTHER: Diminished breath sounds bilaterally, occasional wheezing, no rhonchi no crackles, Pursed lip breathing Cardio: COMMON NORMALS: regular rate, regular rhythm, S1 normal heart sound present, S2 normal heart sound present, No gallops present (Cardio), No murmurs present (Cardio), No rub (Cardio) and Peripheral pulses 2+ throughout RATE: regular rate RHYTHM: regular rhythm HEART SOUNDS: S1 normal heart sound present and S2 normal heart sound present PERIPHERAL PULSES: Peripheral pulses 2+ throughout GI: COMMON NORMALS: Normal to inspection, nondistended, normoactive bowel sounds present, Soft to palpation, non-tender, No hepatosplenomegaly present and no masses AUSCULTATION: Yes normoactive bowel sounds PALPATION: Yes Soft to palpation and Yes No hepatosplenomegaly present RECTAL EXAM: deferred Extremity: COMMON NORMALS: no clubbing, cyanosis or edema and no pedal edema Neuro: COMMON NORMALS: patient oriented x3 Data : 09/26/20 13:09 09/26/20 13:09 Micro: Microbiology 09/26/20 12:00 Blood Culture - Preliminary Blood SPECIMEN COLLECTED 09/26/20 13:32 Blood Culture - Preliminary Blood SPECIMEN COLLECTED A&P Assessment and plan (1) COPD (chronic obstructive pulmonary disease): COPD exacerbation: Duo nebs Solu-Medrol 60 IV daily Azithromycin 500 IV daily Supplemental oxygen Status: Acute (2) Chronic respiratory failure with hypoxia: Chronic compensated hypercapnic hypoxic respiratory failure secondary to COPD exacerbation. Status: Acute (3) Speech abnormality: Speech evaluation, continue with conservative management Patient has denied flexible laryngoscopy recently. 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 Status: Acute (4) Transaminitis: Monitor CMP. Status: Acute (5) Difficulty in swallowing: Patient has been worked-up for dysphagia in the recent past.Currently she did not want any further aggressive management. We will continue with conservative management Status: Acute (6) Primary lung squamous cell carcinoma: Status: Acute Additional A&P Information Code Status :AND DVT PPX: Lovenox Disposition :Home Attestations Medical Necessity Statement*: Patient needs to be in the hospital for the management of COPD exacerbation. Anticipated length of stay greater than 2 midnights. 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
--- NOTE | 2020-09-26 17:49 | PC.NURSE ---
pt report called to Dodie SANTANA in SBAR format.
--- NOTE | 2020-09-26 19:09 | ECG_ITS ---
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 Measurements Intervals [place] Rate: 91 P: 87 CO: 146 QRS: 41 QRSD: 86 T: 75 QT: 353 QTc: 436 Interpretive Statements SINUS RHYTHM LOW QRS VOLTAGE IN PRECORDIAL LEADS [QRS DEFLECTION < 1.0 mV IN CHEST LEADS] Compared to ECG 09/26/2020 15:48:52 Low QRS voltage now present Electronically Signed On 10-03-2020 7:12:10 CDT by Silvia Ny M.D. [id number]
[2020-09-26] MEDS: sodium chloride 0.9% 1,000 ML 30 ML IV (19:44)
[2020-09-26] MEDS: guaiFENesin-dextromethorphan UDC 10 mL PO (19:45)
[2020-09-26] MEDS: enoxaparin 40 mg/0.4 mL Syringe SUBCUT (19:45)
--- NOTE | 2020-09-26 19:51 | PC.NURSE ---
ADMIT NOTE Pt came to flloor from ER at shift change. Is alert and oriented. SOB with tallking or any activity. Says has been getting worse over last few days. Is on O2 at 3l [place] at home. Is on 4l presently. Has occ prod cough. IV fluids started at 30ml/hr rate and given meds ordered. RN at bedside doing admission assessment
[2020-09-26] MEDS: azithromycin 500 MG in sodium chloride 0.9% 250 ML 250 MG IV (21:37)
--- NOTE | 2020-09-26 23:03 | ED_ITS ---
HPI - SOB/Dyspnea General: Chief Complaint: Shortness of Breath/Dyspnea Stated Complaint: O2 Saturation Levels Low/Trouble Breathing Time Seen by Provider: 09/26/20 12:59 History of Present Illness: HPI Narrative: The patient is an 80-year-old female with medical history COPD and lung cancer who comes to the ER complaining of increasing shortness of breath which has been worsening for the past few weeks. She was seen in the clinic today and was satting 74% on her chronic 4 L. She is breathing shallow and tachypneic on arrival. Mild respiratory distress. She says she has been coughing so much lately that she has lost her voice. MD elicited complaint: shortness of breath Pertinent past history: COPD Context: recent illness Timing: constant Severity: moderate Exacerbating factors: exertion Relieving factors: oxygen and rest Known history of: COPD Associated symptoms: Reports cough; Deny chest pain, dizziness, extremity pain, nausea, polyuria or vomiting Treatment prior to arrival: oxygen Related Data: Home oxygen amount: 4 liters Review of Systems General: Reports: 10 or more systems reviewed and unremarkable except in HPI and below Const: Denies: fatigue Eyes: Denies: change in vision, blurry vision or eye redness ENMT: Denies: throat pain, swelling of lips/tongue, ear or mastoid pain or nasal congestion Card: Denies: chest pain Resp: Reports: dyspnea, non-productive cough and wheezing GI: Denies: nausea or vomiting : Denies: flank pain, difficulty voiding, urinary frequency or urinary urgency Musc: Denies: neck pain, back pain, extremity pain, joint pain, joint redness, limited range of motion or muscle weakness Skin/Breast: Denies: rash, pruritus, erythema, skin pain or skin tenderness Neuro: Denies: headache(s), numbness in extremities, weakness in extremities, sensory changes, difficulty walking, dizziness, confusion or Slurred speech present Psych: Denies: anxiety or depression Endo: Denies: polyuria All/Imm: Denies: urticaria, throat swelling or tongue swelling PFSH ED PFSH: Medical History (Updated 09/26/20 @ 23:18 by Elan Valadez MD) Chronic back pain Chronic back pain Chronic kidney disease, stage II (mild) CKD (chronic kidney disease), stage II COPD (chronic obstructive pulmonary disease) COPD (chronic obstructive pulmonary disease) Degenerative joint disease Dementia Dementia Depression Depression DJD (degenerative joint disease) of cervical spine Essential (primary) hypertension Lung cancer Squamous cell cancer Lung mass Oxygen dependent Urinary incontinence Surgical History H/O tubal ligation History of appendectomy History of appendectomy History of cholecystectomy History of ERCP History of surgical procedure on eye proper using laser Hx of cholecystectomy S/P ERCP Tubal ligation status Family History Brother Cancer Lung cancer and diabetes Mother Psychiatric illness Schizophrenia Sister Hypertension Other Diabetes Social History Smoking and tobacco status: former smoker Quit status (tobacco): has quit using tobacco Year quit tobacco: 2015 Former quit date comment: But smoking 4 years ago Alcohol intake: current Alcohol intake frequency: few times a month Alcohol type: wine Caregiver/support person: Yes Lives independently: Yes Household members: family and children Housing: House Marital status: / Current occupational status: disabled History of recent travel: No Current gender identity: Female Physical Exam Const: COMMON NORMALS: no acute distress, average body habitus, patient oriented x3, no limitations, healthy appearing, alert and well nourished GENERAL APPEARANCE: cooperative, comfortable, well kempt and well developed ORIENTATION/CONSCIOUSNESS: Yes awake, Yes oriented to person, Yes oriented to place and Yes oriented to time HENMT: COMMON NORMALS: normocephalic, external ears normal and Normal external nose present HEAD & SCALP: normal to inspection and normocephalic NOSE: Normal external nose present EXTERNAL EAR: Yes external ears normal MOUTH: Normal oral and palatal mucosa present THROAT: posterior oropharynx normal Eye: COMMON NORMALS: Equal, round and reactive pupils present and EOMs intact bilaterally GENERAL EYE: appearance normal, both eyes and all related structures PUPIL: Yes Equal, round and reactive pupils present Neck/C-Spine: COMMON NORMALS: full ROM, no lymphadenopathy, no meningeal signs and no JVD GENERAL: Yes normal visual inspection Lymph: LYMPHATIC: no lymphadenopathy noted Chest: COMMONS NORMALS: normal inspection of the chest and normal palpation of entire chest wall Resp: COMMON NORMALS: normal respiratory effort, No retractions, No use of accessory muscles, clear to auscultation bilaterally and percussion normal EFFORT & INSPECTION: Yes able to speak in complete sentences AUSCULTATION: clear to auscultation bilaterally PERCUSSION: percussion normal Cardio: COMMON NORMALS: no JVD, regular rate, regular rhythm, S1 normal heart sound present, S2 normal heart sound present and Peripheral pulses 2+ throughout RATE: regular rate RHYTHM: regular rhythm HEART SOUNDS: S1 normal heart sound present and S2 normal heart sound present PERIPHERAL PULSES: Peripheral pulses 2+ throughout GI: COMMON NORMALS: Normal to inspection, nondistended, normoactive bowel sounds present, Soft to palpation, non-tender and no masses INSPECTION: Yes normal to inspection PALPATION: Yes Soft to palpation : COMMON NORMALS: Yes no CVA tenderness BLADDER/KIDNEY EXAM: Yes no CVA tenderness Back/Pelvis: COMMON NORMALS: no CVA tenderness, thoracic and lumbar spine normal to inspection, no thoracic nor lumbar tenderness and thoraco-lumbar ROM normal Extremity: COMMON NORMALS: normal to inspection, full ROM, capillary refill normal, no joint enlargement and no pedal edema GENERAL: Yes normal exam except as noted Neuro: COMMON NORMALS: patient oriented x3, CN's II-XII intact bilaterally, moves all extremities, no focal motor deficits, no sensory deficits noted and gait normal SENSORIUM/ORIENTATION: Yes alert, Yes oriented to person, Yes oriented to place and Yes oriented to time MENINGEAL SIGNS: Yes no meningeal signs Psych: COMMON NORMALS: mental status grossly normal, Normal thought process present, cooperative, normal affect and speech normal APPEARANCE: Yes well kempt ATTITUDE: Yes calm SPEECH: Yes normal speech THOUGHT PROCESS: Normal thought process present Skin: COMMON NORMALS: no rashes or lesions noted GENERAL SKIN EXAM: no rashes or lesions noted Course Vital Signs: Vital signs: Vital Signs Temperature 97.6 F 09/26/20 19:58 Pulse Rate 85 09/26/20 22:00 Respiratory Rate 24 H 09/26/20 19:58 Blood Pressure 112/65 09/26/20 19:58 Pulse Oximetry 98 09/26/20 19:58 MDM - SOB/Dyspnea MDM Narrative: Medical decision making narrative: The patient came in in mild respiratory distress from her COPD exacerbation. She was given Solu-Medrol and albuterol with mild improvement of her symptoms however still tachypneic and requiring oxygen. She wears 4 L chronically. She was stable for admission and admitted to Dr. Galdamez Lab Data: Labs: Lab Results 09/26/20 09/26/20 09/26/20 Range/Units 13:09 13:09 13:09 WBC 6.9 (4.0-10.0) 10^3/ uL RBC 3.89 L (4.1-5.3) 10^6/u L Hgb 12.0 (11.5-15.3) g/dL Hct 39.7 (37.0-47.0) % MCV 102.1 H (81-99) fL MCH 30.8 (28.0-34.0) pg MCHC 30.2 (30.0-36.0) g/dL RDW 12.7 (12.1-15.1) % Plt Count 249 (130-400) 10^3/c mm MPV 9.7 (7.4-10.4) fL Neut % (Auto) 66.1 % Lymph % (Auto) 14.2 % Grayson % (Auto) 9.2 % Eos % (Auto) 9.7 % Baso % (Auto) 0.7 % Neut # (Auto) 4.57 (1.8-7.7) 10^3/u L Lymph # (Auto) 1.0 (0.8-4.8) 10^3/u L Grayson # (Auto) 0.6 (0.2-0.9) 10^3/u L Eos # (Auto) 0.7 (0.0-0.8) 10^3/u L Baso # (Auto) 0.1 (0.0-0.1) 10^3/u L Nucleated RBC % (a uto) 0 % Nucleated RBCs # 0.0 /100WBC D-Dimer (0-0.59) ug/mIFE U Specimen Type Sample Site ABG pH (7.35-7.45) ABG pCO2 (35-45) mmHg ABG pO2 (80.0-100.0) mmH g ABG HCO3 (22-26) mmol/L ABG Base Excess (-2.0-2.0) mmol/ L Dat Test Hematocrit (37-47) % Hgb O2 Saturation (95-100) % Carboxyhemoglobin (0.4-20.1) %THgb Methemoglobin (0.4-1.5) % Total Hemoglobin (12-16) g/dL O2 Delivery Device O2 Liters/Min % FiO2 % Carpenter Mold ID Sodium 142 (136-145) mmol/L Potassium 4.5 (3.5-5.1) mmol/L Chloride 106 (98-107) mmol/L Carbon Dioxide 28 (22-29) mmol/L Anion Gap 12.5 (5-19) BUN 21 (8-23) mg/dL Creatinine 0.6 (0.5-0.9) mg/dL GFR Calculation Not Reportable Glucose 102 (65-115) mg/dL Calculated Osmolal ity 297 H (285-295) mOsm/k g Lactate 1.1 (0.5-2.2) mmol/L Calcium 9.1 (8.5-10.5) mg/dL Total Bilirubin 0.3 (0.15-1.2) mg/dL AST 39 H (0-32) U/L ALT 37 H (0-33) U/L Alkaline Phosphata se 203 H (35-105) IU/L Troponin T Baselin e (0-10) ng/L NT-Pro-B Natriuret Pep 247 (0-450) pg/mL Total Protein 6.3 L (6.6-8.7) g/dL Albumin 3.6 (3.5-5.2) g/dL Globulin 2.7 (1.3-4.6) g/dL SARS-CoV-2 Ag (Rap id) (Negative) 09/26/20 09/26/20 09/26/20 Range/Units 13:09 13:27 13:46 WBC (4.0-10.0) 10^3/ uL RBC (4.1-5.3) 10^6/u L Hgb (11.5-15.3) g/dL Hct (37.0-47.0) % MCV (81-99) fL MCH (28.0-34.0) pg MCHC (30.0-36.0) g/dL RDW (12.1-15.1) % Plt Count (130-400) 10^3/c mm MPV (7.4-10.4) fL Neut % (Auto) % Lymph % (Auto) % Grayson % (Auto) % Eos % (Auto) % Baso % (Auto) % Neut # (Auto) (1.8-7.7) 10^3/u L Lymph # (Auto) (0.8-4.8) 10^3/u L Grayson # (Auto) (0.2-0.9) 10^3/u L Eos # (Auto) (0.0-0.8) 10^3/u L Baso # (Auto) (0.0-0.1) 10^3/u L Nucleated RBC % (a uto) % Nucleated RBCs # /100WBC D-Dimer 0.64 H (0-0.59) ug/mIFE U Specimen Type Arterial Sample Site Radial, right ABG pH 7.40 (7.35-7.45) ABG pCO2 50.3 H (35-45) mmHg ABG pO2 127.0 H (80.0-100.0) mmH g ABG HCO3 31.2 H (22-26) mmol/L ABG Base Excess 5.4 H (-2.0-2.0) mmol/ L Dat Test Pos Hematocrit 35.0 L (37-47) % Hgb O2 Saturation 97.9 (95-100) % Carboxyhemoglobin 0.6 (0.4-20.1) %THgb Methemoglobin 0.8 (0.4-1.5) % Total Hemoglobin 11.4 L (12-16) g/dL O2 Delivery Device Nc O2 Liters/Min 4.0 % FiO2 36.0 % Carpenter Mold ID Ed Sodium (136-145) mmol/L Potassium (3.5-5.1) mmol/L Chloride (98-107) mmol/L Carbon Dioxide (22-29) mmol/L Anion Gap (5-19) BUN (8-23) mg/dL Creatinine (0.5-0.9) mg/dL GFR Calculation Glucose (65-115) mg/dL Calculated Osmolal ity (285-295) mOsm/k g Lactate (0.5-2.2) mmol/L Calcium (8.5-10.5) mg/dL Total Bilirubin (0.15-1.2) mg/dL AST (0-32) U/L ALT (0-33) U/L Alkaline Phosphata se (35-105) IU/L Troponin T Baselin e 10 (0-10) ng/L NT-Pro-B Natriuret Pep (0-450) pg/mL Total Protein (6.6-8.7) g/dL Albumin (3.5-5.2) g/dL Globulin (1.3-4.6) g/dL SARS-CoV-2 Ag (Rap id) (Negative) 09/26/20 Range/Units 14:45 WBC (4.0-10.0) 10^3/ uL RBC (4.1-5.3) 10^6/u L Hgb (11.5-15.3) g/dL Hct (37.0-47.0) % MCV (81-99) fL MCH (28.0-34.0) pg MCHC (30.0-36.0) g/dL RDW (12.1-15.1) % Plt Count (130-400) 10^3/c mm MPV (7.4-10.4) fL Neut % (Auto) % Lymph % (Auto) % Grayson % (Auto) % Eos % (Auto) % Baso % (Auto) % Neut # (Auto) (1.8-7.7) 10^3/u L Lymph # (Auto) (0.8-4.8) 10^3/u L Grayson # (Auto) (0.2-0.9) 10^3/u L Eos # (Auto) (0.0-0.8) 10^3/u L Baso # (Auto) (0.0-0.1) 10^3/u L Nucleated RBC % (a uto) % Nucleated RBCs # /100WBC D-Dimer (0-0.59) ug/mIFE U Specimen Type Sample Site ABG pH (7.35-7.45) ABG pCO2 (35-45) mmHg ABG pO2 (80.0-100.0) mmH g ABG HCO3 (22-26) mmol/L ABG Base Excess (-2.0-2.0) mmol/ L Dat Test Hematocrit (37-47) % Hgb O2 Saturation (95-100) % Carboxyhemoglobin (0.4-20.1) %THgb Methemoglobin (0.4-1.5) % Total Hemoglobin (12-16) g/dL O2 Delivery Device O2 Liters/Min % FiO2 % Carpenter Mold ID Sodium (136-145) mmol/L Potassium (3.5-5.1) mmol/L Chloride (98-107) mmol/L Carbon Dioxide (22-29) mmol/L Anion Gap (5-19) BUN (8-23) mg/dL Creatinine (0.5-0.9) mg/dL GFR Calculation Glucose (65-115) mg/dL Calculated Osmolal ity (285-295) mOsm/k g Lactate (0.5-2.2) mmol/L Calcium (8.5-10.5) mg/dL Total Bilirubin (0.15-1.2) mg/dL AST (0-32) U/L ALT (0-33) U/L Alkaline Phosphata se (35-105) IU/L Troponin T Baselin e (0-10) ng/L NT-Pro-B Natriuret Pep (0-450) pg/mL Total Protein (6.6-8.7) g/dL Albumin (3.5-5.2) g/dL Globulin (1.3-4.6) g/dL SARS-CoV-2 Ag (Rap id) Negative (Negative) Discharge Plan Discharge Patient Disposition: Admitted As Inpatient Admit Provider: Tree Galdamez Clinical Impression: Acute exacerbation of chronic obstructive airways disease Condition: Stable Coding Level of Care Code ED Tool Maker Apprentice for Chg Fwd Exam Comprehensive
[2020-09-27] VITALS (16 sets, daily range): BP systolic 97–125; BP diastolic 50–69; PULSE 80–113; RESP 16–25; TEMP 36.4–37.1; O2SAT 95–100
[2020-09-27] MEDS: guaiFENesin-dextromethorphan UDC 10 mL PO ×6 (00:40→20:44)
[2020-09-27] MEDS: ipratropium-albuterol 3 mL Neb INHALATION ×4 (02:44→21:01)
[2020-09-27 05:27] LABS: Basophils % 0.2 %; Hematocrit 34.2 % (37.0-47.0); Hemoglobin 10.5 g/dL (11.5-15.3); Lymphocytes # 0.7 10^3/uL (0.8-4.8); Lymphocytes % 7.5 %; Mean Corpuscular HGB Conc 30.7 g/dL (30.0-36.0); Mean Corpuscular Hemoglobin 30.7 pg (28.0-34.0); Mean Platelet Volume 9.7 fL (7.4-10.4); Monocytes # 0.4 10^3/uL (0.2-0.9); Monocytes % 4.2 %; Neutrophils # 7.94 10^3/uL (1.8-7.7); Neutrophils % 87.9 %; Nucleated Red Blood Cells % 0 %; Platelet Count 253 10^3/cmm (130-400); Red Blood Count 3.42 10^6/uL (4.1-5.3); Red Cell Distribution Width 12.8 % (12.1-15.1)
[2020-09-27 05:48] LABS: Anion Gap 13.3 (5-19); Blood Urea Nitrogen 18 mg/dL (8-23); Carbon Dioxide 27 mmol/L (22-29); Chloride 102 mmol/L (98-107); Glucose 137 mg/dL (65-115); Osmolality Calculated 290 mOsm/kg (285-295); Potassium 4.3 mmol/L (3.5-5.1); Sodium 138 mmol/L (136-145)
--- NOTE | 2020-09-27 06:11 | PC.NURSE ---
SHIFT SUMMARY Has rested well since admission last evening. Says she believes her breathing is improved. Still easily SOB. O2 in place at4l. Has received scheduled Robitussin q4h and says has eased her coughing. IV fluids infusing at 30ml/hr rate.
[2020-09-27] MEDS: benzonatate 100 mg Capsule PO (08:54)
[2020-09-27] MEDS: acetaminophen 325 mg Tablet 650 MG PO ×3 (09:03→22:47)
--- NOTE | 2020-09-27 12:48 | PC.CHAP ---
Pastoral Care Encounter/Spiritual Assessment Type of Contact [] Declined air table operator visit [] Patient/Family/Request visit [] Outpatient visit [] Follow-up visit [] Physician referral [] Code/Alert [x] Routine visit [] Staff referral [] Actively dying [] Patient sleeping [] Family support [] [] Out of room [] Palliative care [] [x] Receiving care in room [] Pre-surgical visit [] Trauma [] Long length of stay [] ICU visit [] Other: Relational/Emotional Strength [x] Patient feels connected with others/family/visitors/staff [] Distress [] Loneliness/isolation [] Abandonment Spirituality of Patient [x] Person of Savi [] Attends Yarsani of their Savi [x] Believes in Prayer [] Reads Bible or Spiritism materials [] There are Spiritual issues to be addressed Director Of Financial Aid Interventions [x] Prayer [x] Active listening [x] Non-anxious presence [x] Spiritual/emotional support [] Crisis/trauma care [x] Spiritual counseling [] Bereavement support [] Provided bereavement packet [] Provided Bible/devotional materials [] Provided toy/stuffed animal, coloring book to patient or family member [] Provided Communion [] Anointing/[place] [] Salvation [x] Completed spiritual assessment [] Other: Impact on Illness or Injury [] Angry [] Fearful [] Anxious [x] Often cries [] Exhaustion [x] Unable to work [] Unable to attend congregation [] Unable to walk/stand [] Unable to read [] Unable to drive [] Unable to eat/drink [] Unable to sleep [] Unable to be with family [] Patient intubated [] Other: Summary chemo cancer, has a good attitude 1 wants to home to family Time spent with patient 19 mins
--- NOTE | 2020-09-27 13:13 | P.PN_ITS ---
Subjective Subjective: Interval history: No acute events overnight, no fresh complaint, currently saturating well on 3 L oxygen via nasal cannula. Continues to remain afebrile, her other vitals and labs have been reviewed. Vitals/I&O/Wt Last Vital Signs Temp 97.9 F 09/27/20 12:00 Pulse 109 H 09/27/20 12:00 Resp 25 H 09/27/20 12:00 BP 117/69 09/27/20 12:00 Pulse Ox 95 09/27/20 12:00 09/26/20 09/27/20 09/27/20 22:59 06:59 14:59 Intake Total 450 / 500 960 / 960 Output Total 380 / 380 Balance 70 / 120 960 / 960 Weight last 48 hrs Weight 57.153 kg Physical Exam Const: COMMON NORMALS: patient oriented x3 HENMT: COMMON NORMALS: normocephalic and atraumatic HEAD & SCALP: normoceph alic and atraumatic Resp: COMMON NORMALS: clear to auscultation bilaterally EFFORT & INSPECTION: Yes symmetric chest movement AUSCULTATION: clear to auscultation bilaterally OTHER: Diminished breath sounds bilaterally, occasional wheezing, no rhonchi no crackles, Pursed lip breathing Cardio: COMMON NORMALS: regular rate, regular rhythm, S1 normal heart sound present, S2 normal heart sound present, No gallops present (Cardio), No murmurs present (Cardio), No rub (Cardio) and Peripheral pulses 2+ throughout RATE: regular rate RHYTHM: regular rhythm HEART SOUNDS: S1 normal heart sound present and S2 normal heart sound present PERIPHERAL PULSES: Peripheral pulses 2+ throughout GI: COMMON NORMALS: Normal to inspection, nondistended, normoactive bowel sounds present, Soft to palpation, non-tender, No hepatosplenomegaly present and no masses AUSCULTATION: Yes normoactive bowel sounds PALPATION: Yes Soft to palpation and Yes No hepatosplenomegaly present RECTAL EXAM: deferred Extremity: COMMON NORMALS: no clubbing, cyanosis or edema and no pedal edema Neuro: COMMON NORMALS: patient oriented x3 Data : 09/27/20 04:53 09/27/20 04:53 Micro: Microbiology 09/26/20 12:00 Blood Culture - Preliminary Blood SPECIMEN COLLECTED 09/26/20 13:32 Blood Culture - Preliminary Blood SPECIMEN COLLECTED A&P Assessment and plan (1) COPD (chronic obstructive pulmonary disease): COPD exacerbation: Duo nebs Solu-Medrol 60 IV daily Azithromycin 500 IV daily Supplemental oxygen Status: Acute (2) Chronic respiratory failure with hypoxia: Chronic compensated hypercapnic hypoxic respiratory failure secondary to COPD exacerbation. Status: Acute (3) Speech abnormality: Speech evaluation, continue with conservative management Patient has denied flexible laryngoscopy recently. 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 Possible laryngitis. Status: Acute (4) Transaminitis: Monitor CMP. Status: Acute (5) Difficulty in swallowing: Patient has been worked-up for dysphagia in the recent past.Currently she did not want any further aggressive management. Speech suggested: MBS: Patient has denied. We will continue with conservative management Status: Acute (6) Primary lung squamous cell carcinoma: Status: Acute Additional A&P Information Code Status :AND DVT PPX: Lovenox Disposition :Home Attestations Medical Necessity Statement*: Patient needs to be in hospital for management of COPD exacerbation. Coding Level of Care Code Acute Felt Strip Finisher for Chg Fwd Diagnoses COPD (chronic obstructive pulmonary disease) J44.9 Chronic respiratory failure with hypoxia J96.11 Speech abnormality R47.9 Transaminitis R74.01 Difficulty in swallowing R13.10 Primary lung squamous cell carcinoma C34.90
[2020-09-27] MEDS: enoxaparin 40 mg/0.4 mL Syringe SUBCUT (20:44)
[2020-09-27] MEDS: azithromycin 500 MG in sodium chloride 0.9% 250 ML 250 MG IV (20:44)
[2020-09-28] VITALS (9 sets, daily range): BP systolic 109–122; BP diastolic 66–69; PULSE 84–96; RESP 16–20; TEMP 36.4–36.6; O2SAT 97–100
[2020-09-28] MEDS: guaiFENesin-dextromethorphan UDC 10 mL PO ×3 (01:45→07:30)
[2020-09-28] MEDS: ipratropium-albuterol 3 mL Neb INHALATION ×2 (03:29→09:44)
[2020-09-28] MEDS: sodium chloride 0.9% 1,000 ML 30 ML IV (05:50)
[2020-09-28 06:11] LABS: Basophils % 0.2 %; Eosinophils % 0.1 %; Hematocrit 32.7 % (37.0-47.0); Lymphocytes # 1.3 10^3/uL (0.8-4.8); Mean Corpuscular HGB Conc 30.6 g/dL (30.0-36.0); Mean Corpuscular Hemoglobin 30.8 pg (28.0-34.0); Mean Corpuscular Volume 100.6 fL (81-99); Mean Platelet Volume 9.6 fL (7.4-10.4); Monocytes # 0.6 10^3/uL (0.2-0.9); Monocytes % 5.5 %; Neutrophils # 8.55 10^3/uL (1.8-7.7); Neutrophils % 81.8 %; Nucleated Red Blood Cells % 0 %; Platelet Count 220 10^3/cmm (130-400); Red Blood Count 3.25 10^6/uL (4.1-5.3); Red Cell Distribution Width 13.3 % (12.1-15.1); White Blood Count 10.5 10^3/uL (4.0-10.0)
[2020-09-28 06:28] LABS: Blood Urea Nitrogen 16 mg/dL (8-23); Calcium 8.7 mg/dL (8.5-10.5); Carbon Dioxide 29 mmol/L (22-29); Chloride 105 mmol/L (98-107); Glucose 107 mg/dL (65-115); Osmolality Calculated 294 mOsm/kg (285-295); Sodium 141 mmol/L (136-145)
[2020-09-28] MEDS: benzonatate 100 mg Capsule PO (07:30)
[2020-09-28] MEDS: cetylpyridinium Lozenge 1 EACH MUCOUS MEM (08:12)
--- NOTE | 2020-09-28 10:53 | P.DS_ITS ---
Discharge Providers Date of Admission: 09/26/20 15:10 Date of Discharge: September 28, 2020 Attending Provider at Admission: Tree Galdamez MD Attending Provider at Discharge: Tree Galdamez MD Primary Care Provider: Nestor Cross MD Diagnoses at Discharge Discharge Diagnosis (1) COPD (chronic obstructive pulmonary disease): Status: Chronic (2) Chronic respiratory failure with hypoxia: Status: Chronic (3) Speech abnormality: Status: Chronic (4) Transaminitis: Status: Resolved (5) Difficulty in swallowing: Status: Resolved (6) Primary lung squamous cell carcinoma: Status: Chronic Reason for Visit Reason for Visit: O2 Saturation Levels Low/Trouble Breathing Hospital Course Hospital Course Ora De Leon is a 80 year old female with past medical history of COPD Gold class D, on 4 L of oxygen, 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 concluded combined chemoradiation weekly chemotherapy on 09/06/2019 and last dose on 09/13/2019 was not given because of severe neutropenia and patient completed radiation therapy on 09/13/2019 , Follow-up CT scan of chest done on July 23, 2020 showed no significant change in the size of left upper lobe neoplasm no 1.5 x 2.2 cm. Increase in the amount of stranding and interstitial thickening surrounding the left upper lobe neoplasm this may be post radiation-induced lung changes or lymphangitic spread of tumor is not completely excluded. No mediastinal lymphadenopathy but severe emphysema and stable T12 severe compression fracture) Came in today with chief complaint of worsening shortness of breath, cough, whitish sputum, going on for the last couple of days, daughter also told that she was febrile today.Daughter is also complaining of progressive deterioration in her voice going on for the last 1 month.She has recently seen ENT as an outpatient for intermittent dysphagia and rare aspiration issues, the plan was to do flexible laryngoscopy, which the patient has refused, she had a recent modified barium study done prominent cricopharyngeus muscle bar. It is not obstructing.Upon arrival in the ER she was found for above-mentioned complaint: X-ray chest: Is Consistent with chronic changes ( Scarring in the left upper lobe from the hilum to the pleura causing a shift of mediastinum from right to left.) EKG: Sinus rhythm with occasional PACs ABG: Ph : 7.40, PCO2: 50, PO2:127, FiO2:36 %. Pertinent labs: CBC is normal, slightly elevated AST ALT and alk phos, normal BUN and creatinine, normal serum potassium, normal serum sodium. Serum bicarbonate normal. Troponin: Baseline:10, 2h : 7.42, 2-hour delta: -2.58 .Urinalysis: Clean. She was admitted for the management of COPD Exacerbation, she was kept on steroids, duo nebs, azithromycin, to which she responded very well,at the time of discharge she was at her baseline oxygen, coughing and sob has improved.She was disccharged on pro air as well as advair inhaler as well as 5 day course of prednisone 20 mg po daily as well as azthromycin 250 mg po daily for 5 days. For her recent worsening of speech,possibilities include layrngitis , she was advised conservative management, speech rest, humidification.She has denied denied flexible laryngoscopy recently. Possible PFT as an outpatient, for possible recurrent laryngeal nerve involvement,due to squamous cell cancer of lung.As well as other imaging modalities as outpatient, if the patient agrees for any more work up. For difficulty with swallowing speech and swallow evaluation was done and MBS was advised, which patient denied,during the hospital stay patient exhibited optimum swallowing capabilities and chances of aspiration was very low.Hence no extensive work up was undertaken.She responded well to the above medical mangement and is being discharged in stable condition.She will continue to follow, her PCP,Oncology as well as ENT as outpatient. Physical Exam Const: COMMON NORMALS: patient oriented x3 HENMT: COMMON NORMALS: normocephalic and atraumatic HEAD & SCALP: normocephalic and atraumatic Resp: COMMON NORMALS: clear to auscultation bilaterally EFFORT & INSPECTION: Yes symmetric chest movement AUSCULTATION: clear to auscultation bilaterally OTHER: Diminished breath sounds bilaterally, occasional wheezing, no rhonchi no crackles, Pursed lip breathing Cardio: COMMON NORMALS: regular rate, regular rhythm, S1 normal heart sound present, S2 normal heart sound present, No gallops present (Cardio), No murmurs present (Cardio), No rub (Cardio) and Peripheral pulses 2+ throughout RATE: r egular rate RHYTHM: regular rhythm HEART SOUNDS: S1 normal heart sound present and S2 normal heart sound present PERIPHERAL PULSES: Peripheral pulses 2+ throughout GI: COMMON NORMALS: Normal to inspection, nondistended, normoactive bowel sounds present, Soft to palpation, non-tender, No hepatosplenomegaly present and no masses AUSCULTATION: Yes normoactive bowel sounds PALPATION: Yes Soft to palpation and Yes No hepatosplenomegaly present RECTAL EXAM: deferred Extremity: COMMON NORMALS: no clubbing, cyanosis or edema and no pedal edema Neuro: COMMON NORMALS: patient oriented x3 Discharge Data Data Completed and Pending: Completed Studies During Hospitalization Category Date Time Status XR chest 1V lily ble [id number] Urgent Exams 09/26/20 13:04 Completed Pending at discharge Category Date Time Status Basic Metabolic P cata AM LABS Lab 09/29/20 04:00 Ordered Blood Culture Sta t Lab 09/26/20 12:00 Results Complete Blood Co unt w/Auto AM LABS Lab 09/29/20 04:00 Ordered Labs from last 24 hours 09/28/20 09/28/20 05:47 05:47 WBC 10.5 H RBC 3.25 L Hgb 10.0 L Hct 32.7 L MCV 100.6 H MCH 30.8 MCHC 30.6 RDW 13.3 Plt Count 220 MPV 9.6 Neut % (Auto) 81.8 Lymph % (Auto) 12.0 [place] % (Auto) 5.5 Eos % (Auto) 0.1 Baso % (Auto) 0.2 Neut # (Auto) 8.55 H Lymph # (Auto) 1.3 [place] # (Auto) 0.6 Eos # (Auto) 0.0 Baso # (Auto) 0.0 Nucleated RBC % (a uto) 0 Nucleated RBCs # 0.0 Sodium 141 Potassium 4.0 Chloride 105 Carbon Dioxide 29 Anion Gap 11.0 BUN 16 Creatinine 0.6 GFR Calculation Not Reportable Glucose 107 Calculated Osmolal ity 294 Calcium 8.7 Vitals: Last Vital Signs Temp 97.8 F 09/28/20 08:00 Pulse 86 09/28/20 09:52 Resp 20 H 09/28/20 09:47 BP 109/66 09/28/20 08:00 Pulse Ox 98 09/28/20 09:47 Discharge Plan Discharge Patient Disposition: Home Condition: Stable Prescriptions: New prednisone 20 mg tablet 20 mg PO DAILY 5 Days RF: 0 ProAir HFA 90 mcg/actuation HFA aerosol inhaler 2 inh inhalation Q6H PRN (Reason: shortness of breath or wheezing) Qty: 6.7 RF: 0 azithromycin 250 mg tablet 250 mg PO DAILY 5 Days RF: 0 Advair Diskus 250-50 mcg/dose blister with device 1 inh inhalation BID Qty: 60 RF: 0 Continued ibuprofen 200 mg capsule 600 mg PO DAILY PRN (Reason: Pain) RF: 0 Claritin 10 mg Tablet 10 mg PO DAILY PRN (Reason: Allergy Symptoms) RF: 0 Discharge Orders: Discharge Order (Routine); Ordered 09/28/20 Ordered By: Tree Galdamez Referrals: Hansel Pierre MD [Physician] - 2 weeks ([facility] will call you with an appointment.) Nestor Cross MD [Primary Care Provider] - 10/05/20 1:45 pm Chikis Bean MD [Physician] - 10/11/20 1:00 pm () Riya Crump MD [Staff Physician] - 10/16/20 9:30 am ( ) Discharge Diet: GI Soft Discharge Activity: Increase activity as tolerated Patient Instructions: Albuterol (By breathing), Prednisone (By mouth), Azithromycin (By mouth), Chronic Obstructive Pulmonary Disease (GEN), COPD Stoplight, Opioid Safety Discharge Attestations Time Spent in Discharge Care*: less than 30 min Specific Discharge Activities: educating patient, educating and/or supporting family/caregiver, discussing with pcp/other providers, discussing with business case analyst/social workers/dc planners, documenting/other paperwork and evaluating patient/reviewing data Status at Discharge: Cognitive status at discharge: cognitively intact , Behavioral status at discharge: cooperative , Quality Metrics Clinical Quality Measures During this hospital stay, did patient experience: None Coding Level of Care Code Acute Chg FW DC note Diagnoses COPD (chronic obstructive pulmonary disease) J44.9 Chronic respiratory failure with hypoxia J96.11 Speech abnormality R47.9 Transaminitis R74.01 Difficulty in swallowing R13.10 Primary lung squamous cell carcinoma C34.90
--- NOTE | 2020-10-01 12:15 | PC.RESP ---
Pulmonary Rehab information sent to patient.
== END 2020-09-28 11:55 | disposition home or self-care (01) | DRG 191 ==
LOC: ER 12:59 → MEDSURG 17:09
PROVIDERS: Admitting Provider Internal Medicine; Emergency Provider Family Medicine; PCP Family Medicine; Visit Provider Internal Medicine
DX: J44.1 Chronic obstructive pulmonary disease with (acute) exacerbation (principal); C34.12 Malignant neoplasm of upper lobe, left bronchus or lung; J96.11 Chronic respiratory failure with hypoxia; Z99.81 Dependence on supplemental oxygen; Z92.3 Personal history of irradiation; Z92.21 Personal history of antineoplastic chemotherapy; R13.10 Dysphagia, unspecified; G89.29 Other chronic pain; M54.9 Dorsalgia, unspecified; I12.9 Hypertensive chronic kidney disease with stage 1 through stage 4 chronic kidney disease, or unspecified chronic kidney disease; N18.2 Chronic kidney disease, stage 2 (mild); M47.812 Spondylosis without myelopathy or radiculopathy, cervical region; F03.90 Unspecified dementia, unspecified severity, without behavioral disturbance, psychotic disturbance, mood disturbance, and anxiety; F32.9 Major depressive disorder, single episode, unspecified; Z87.891 Personal history of nicotine dependence
CPT/HCPCS: 36415; 36600; 71045; 80048; 80053; 81003; 82805; 83605; 83880; 84484; 85025; 85378; 87040; 87426; 92610; 93005; 94640; 96365; 96372; 96375; 99285; J0456; J0696; J1650; J2930; J7030; J7050

== ENCOUNTER 2020-10-24 08:06 | Outpatient (CLI) | payer MEDICARE, SELFPAY ==
[2020-10-24] MEDS: alteplase 1 mg/mL SDV 2 mL 2 MG IV (08:45)
--- NOTE | 2020-10-24 08:52 | CT_ITS ---
WS: [id number] CT CHEST TECHNIQUE: Contrast enhanced CT of the chest with coronal and sagittal reformatted images. CLINICAL INFORMATION: LUNG CANCER FOLLOW UP COMPARISON: CT July 23, 2020 and February 2020 DLP: 525.[address] scans at [facility] use at least one of these dose optimization techniques: automat ed exposure control; mA and/or kV adjustment per patient size (includes targeted exams where dose is matched to clinical indication); or iterative reconstruction. FINDINGS: Again seen is the spiculated left upper lobe neoplasm which has slightly decreased in size compared t o July 24, 2019 . Today this measures approximately 1.0 x 1.8 x 0.8 cm. This compares to 1.4 x 2.1 x 0.9 cm previousl y. Surrounding interstitial thickening with patchy opacities unchanged in appearance. Thickening alexia g the left fissure. No evidence of progressed disease. Normal caliber thoracic aorta. Aortic calcification. Proximal main pulmonary arteries are normal. Cor onary calcification. No mediastinal or hilar lymphadenopathy. Small esophageal hiatal hernia. No axil nish lymphadenopathy. Adrenal glands are normal. Cholecystectomy clips. Pneumobilia. Chronic compress ion the T12 vertebral body unchanged. CT/CT chest w con* [id number] IMPRESSION: 1. Spiculated left upper lobe neoplasm measures slightly smaller today compare d to previous.Today this measures approximately 1.0 x 1.8 x 0.8 cm. This compar es to 1.4 x 2.1 x 0.9 cm previously. 2. No other significant interval changes. Persistent interstitial thickening a bout the left suprahilar mass. 3. No evidence of progressed disease. 4. No mediastinal or hilar lymphadenopathy.
[2020-10-24 09:03] LABS: Basophils # 0.1 10^3/uL (0.0-0.1); Basophils % 1.2 %; Eosinophils # 0.7 10^3/uL (0.0-0.8); Eosinophils % 8.9 %; Hematocrit 37.9 % (37.0-47.0); Lymphocytes % 13.4 %; Mean Corpuscular HGB Conc 31.7 g/dL (30.0-36.0); Mean Corpuscular Hemoglobin 31.6 pg (28.0-34.0); Mean Corpuscular Volume 99.7 fL (81-99); Mean Platelet Volume 9.5 fL (7.4-10.4); Monocytes # 0.5 10^3/uL (0.2-0.9); Monocytes % 6.2 %; Neutrophils # 5.35 10^3/uL (1.8-7.7); Nucleated Red Blood Cells % 0 %; Platelet Count 302 10^3/cmm (130-400); Red Cell Distribution Width 12.8 % (12.1-15.1); White Blood Count 7.6 10^3/uL (4.0-10.0)
[2020-10-24] MEDS: iohexol 300 mg/mL 100 mL Btl IV (09:21)
[2020-10-24 09:25] LABS: Alanine Aminotransferase 37 U/L (0-33); Albumin Level 3.6 g/dL (3.5-5.2); Alkaline Phosphatase 183 IU/L (35-105); Anion Gap 10.2 (5-19); Aspartate Amino Transferase 38 U/L (0-32); Blood Urea Nitrogen 12 mg/dL (8-23); Calcium 9.1 mg/dL (8.5-10.5); Carbon Dioxide 30 mmol/L (22-29); Chloride 102 mmol/L (98-107); Globulin 3.3 g/dL (1.3-4.6); Glucose 95 mg/dL (65-115); Osmolality Calculated 286 mOsm/kg (285-295); Potassium 4.2 mmol/L (3.5-5.1); Sodium 138 mmol/L (136-145); Total Bilirubin 0.3 mg/dL (0.15-1.2); Total Protein 6.9 g/dL (6.6-8.7)
== END 2020-10-24 08:07 | disposition home or self-care (01) ==
LOC: ONCMED 08:08
PROVIDERS: PCP Family Medicine; Visit Provider Internal Medicine Hematology & Oncology
DX: C34.12 Malignant neoplasm of upper lobe, left bronchus or lung (principal); I10 Essential (primary) hypertension; J44.9 Chronic obstructive pulmonary disease, unspecified; Z99.81 Dependence on supplemental oxygen; Z92.3 Personal history of irradiation
CPT/HCPCS: 36415; 36593; 71260; 80053; 85025; 96374; J2997; Q9967

== ENCOUNTER 2020-11-01 06:03 | Outpatient (CLI) | payer MEDICARE, SELFPAY ==
--- NOTE | 2020-11-01 16:48 | ONC FU_ITS ---
Dr. Crump follow up note Patient: Ora De Leon Unit #: [id number]: 1940 Dicatated By: Riya Crump M.D.Date of Visit:Nov 01, 2020 Onc Med Follow-up/Prog Note History of Present Illness: Mrs De Leon is a 80 -year-old female with a history of abnormal chest x-ray with a left upper lobe lung mass. The mass was confirmed with CT scan of chest. Subsequently on 07/05/2019, she underwent bronchoscopy and endobronchial ultrasound-guided transbronchial needle aspiration of lymph nodes. 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 Lymph node aspiration showed benign lymph nodes and cytology from bronchoalveolar lavage and Cytobrush were negative too. She underwent CT PET scan on 06/28/2019 in [place], [place] which showed large metabolic active mass within left upper lobe, mild adjacent nodularity in the left lung may reflect some satellite lesion or inflammation; Mildly enlarged mediastinal lymph nodes with some increase in metabolic activity could represent early metastatic disease; Wedge compression of T12 vertebral body of indeterminate age. Due to poor pulmonary reserve, patient is on home oxygen. She was considered not to be a candidate for surgical resection. Mrs De Leon was offered treatment with combined treatment with radiation therapy and chemotherapy. She began her first week of treatment weekly carboplatin/Taxol concurrent with radiation therapy on 07/26/2019. concluded combined chemoradiation weekly chemotherapy on 09/06/2019 and last dose on 09/13/2019 was not given because of severe neutropenia and patient completed radiation therapy on 09/13/2019 .Follow-up CT scan of chest done on February 28, 2020 showed spiculated left upper lobe perihilar mass continues to shrink now 1.7 x 2.1 cm compared to 2.6 x 2.9 on previous scan done on November 25, 2019 Barium swallow done on March 20, 2020 showed prominent cricopharyngeal bar with indentation on the hypopharynx without significant narrowing no jermain aspiration Follow-up CT scan of chest done on July 23, 2020 showed no significant change in the size of left upper lobe neoplasm no 1.5 x 2.2 cm. Increase in the amount of stranding and interstitial thickening surrounding the left upper lobe neoplasm this may be post radiation-induced lung changes or lymphangitic spread of tumor is not completely excluded. No mediastinal lymphadenopathy but severe emphysema and stable T12 severe compression fracture. Follow-up CT scan of chest done on October 24, 2020 showed spiculated left upper lobe neoplasm measures slightly smaller today compared to previous done in July 2020, it measures 1 x 1.8 x 0.8 cm compared to 1.4 x 2.1 x 0.9 cm previously no other significant interval changes. Persistent interstitial thickening around the left suprahilar mass no evidence of disease progression no mediastinal or hilar lymphadenopathy Came for follow-up, patient is complaining of progressive hoarseness of voice for which she was referred to ENT Dr. Pierre, as per family patient did not let him evaluate her and was recently admitted to hospital on September 26, 2020 with COPD exacerbation and difficulty in swallowing which improved but patient continued to have hoarseness of voice. Denies any hemoptysis or hematemesis, denies any fever or chills denies any nausea or vomiting denies any diarrhea or constipation denies any jaundice denies any new bony pains denies any headaches blurred vision double vision denies any focal weakness. And recently underwent follow-up CT scan of the chest, she is here to discuss CT chest findings Medications: Advil PM 1 Tablet (of 200-38 mg) Oral at bedtime, Trelegy Ellipta 1 Puff(s) (of 100-62.5-25 mcg/inh) Aerosol Powder, Breath Activated Inhalation PRN Allergies: Codeine Sulfate Review of Systems: Review of Systems is not available for this patient. Vital Signs: Performed on Nov 01, 2020 16:17 Height - 65.00 in Weight - 126 lbs (HIGH) BSA - 1.63 sq.m BMI - 20.97 Temperature - 97.9 F (LOW) Pulse - 73 /min Respiration - 18 /min BP - 92/64 mm(hg) O2 Sat - 97 % Pain - 0 Performance Status: 1 - No physically strenuous activity, but ambulatory and able to carry out light or sedentary work (e.g. office work, light house work). (ECOG) Physical Examination: ENMT - No mouth sores, no thrush, no jaundice, Respiratory - Poor air entry otherwise clear, Cardiovascular - Regular rate and rhythm of heart, Abdomen - Soft, bowel sounds present, Extremities - No visible edema or rash. Lab/Imaging: Test performed on Jul 10, 2020 14:04 Sodium 140 mmol/L Potassium 4.0 mmol/L Chloride 102 mmol/L CO2 32 mmol/L Anion Gap 10.0 BUN 15 mg/dL Creatinine 0.6 mg/dL Cr Clearance (Est) 69.6200 mL/min Glucose 87 mg/dL Osmolality - Calculated 290 mOsm/kg Calcium 9.2 mg/dL Protein, Total 6.6 g/dL Albumin 3.5 g/dL Globulin 3.1 g/dL Bilirubin, Total 0.3 mg/dL ALT (SGPT) 27 U/L AST (SGOT) 29 U/L Alkaline Phosphatase 167 IU/L WBC 7.9 10 3/uL RBC 3.58 10 6/uL HGB 11.0 g/dL HCT 36.2 % MCV 101.1 fL MCH 30.7 pg MCHC 30.4 g/dL RDW 12.6 % Platelet Count 241 10 3/cmm MPV 10.2 fL Neutrophils 5.41 10 3/uL Lymphocytes 0.9 10 3/uL Monocytes 0.6 10 3/uL Eosinophils 1.0 10 3/uL Basophils 0.1 10 3/uL Neutrophil % 68.1 % Lymphocyte % 11.9 % Monocyte % 7.1 % Eosinophil % 12.0 % Basophils % 0.6 % NRBC % 0 % Impression: 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 Wedge compression of T12 vertebral body of indeterminate age. Clinical stage COPD, on home oxygen Dementia Essential hypertension discussed with Ms De Leon and her family her disease status and treatment options. Considering Ms De Leon's poor pulmonary reserve, she is not a candidate for surgical resection. The role of combined chemoradiation was discussed in detail, and she was offered weekly carboplatin Taxol concurrent radiation therapy,Which she started on July 26, 2019, and last dose of chemo was not given on September 13, 2019 because of severe and persistent neutropenia and patient concluded her radiation therapy on September 13, 2019 discussed about 2 cycles of full dose carboplatin/Taxol followed by maintenance therapy with durvalumab for 12 months.Patient and her daughter decided not to consider consolidation with carboplatin/Taxol and maintenance immunotherapy knowing the risk versus benefits Follow-up CT scan of chest done on July 23, 2020 showed no significant change in the size of left upper lobe neoplasm measuring 1.5 x 2.2 cm. Increasing amount of stranding and interstitial thickening surrounding left upper lobe mass could be postradiation induced changes but lymphangitic spread is not completely excluded. No mediastinal lymphadenopathy. Severe emphysema and stable T12 severe compression fracture. Follow-up CT scan of the chest done on October 24, 2020 showed spiculated left upper lobe neoplasm measuring slightly smaller when compared to previous scan done in July 2020, now measuring 1 x 1.8 x 0.8 cm compared to 1.4 x 2.1 x 0.9 cm previously. No other significant interval changes. Persistent interstitial thickening. No evidence of progressive disease. No mediastinal or hilar lymphadenopathy Hoarseness of voice etiology unclear, being evaluated by ENT Plan: .Discussed with patient regarding her labs white blood count 7.6 hemoglobin 12 hematocrit 37.9, platelet 302,000 CMP within normal limits and CT scan of chest showed no evidence of disease progression persistent but smaller left upper lobe nodule Clinically, patient is doing reasonably well but concerned about progressive hoarseness of voice, patient was referred to ENT, Dr. Pierre and at that time patient did not let him evaluate her, patient was advised to see Dr. Pierre regarding her progressive hoarseness of voice and her follow-up CT scan chest showed no mediastinal mass or lymphadenopathy but persistent rather improving left upper lobe spiculated mass. Her lab work-up is within normal range, patient will return to clinic in 4 months with CBC CMP and CT scan of chest in the meantime we will refer her to Dr. Pierre for evaluation regarding her progressive hoarseness of voice and patient was advised to cooperate with Dr. Pierre regarding evaluation. Signed By: Riya Crump M.D. <<Signature on File>>
== END 2020-11-01 06:04 | disposition home or self-care (01) ==
LOC: ONCMED 06:04
PROVIDERS: PCP Family Medicine; Visit Provider Internal Medicine Hematology & Oncology
DX: C34.12 Malignant neoplasm of upper lobe, left bronchus or lung (principal); J44.9 Chronic obstructive pulmonary disease, unspecified; Z99.81 Dependence on supplemental oxygen; I10 Essential (primary) hypertension; Z92.3 Personal history of irradiation; F03.90 Unspecified dementia, unspecified severity, without behavioral disturbance, psychotic disturbance, mood disturbance, and anxiety; S22.080G Wedge compression fracture of T11-T12 vertebra, subsequent encounter for fracture with delayed healing; R49.0 Dysphonia; X58.XXXA Exposure to other specified factors, initial encounter
CPT/HCPCS: 99214

== ENCOUNTER 2020-12-06 15:40 | Outpatient (CLI) | payer MEDICARE, SELFPAY | END 2020-12-06 15:41 | disposition home or self-care (01) | PROVIDERS: PCP Family Medicine; Visit Provider Internal Medicine Hematology & Oncology | DX: Z45.2 Encounter for adjustment and management of vascular access device (principal) | CPT/HCPCS: 96523 ==

== ENCOUNTER 2021-01-11 10:50 | Outpatient (CLI) | payer MEDICARE, SELFPAY | END 2021-01-11 10:51 | disposition home or self-care (01) | LOC: ONCMED 10:52 | PROVIDERS: PCP Family Medicine; Visit Provider Internal Medicine Hematology & Oncology | DX: Z45.2 Encounter for adjustment and management of vascular access device (principal) | CPT/HCPCS: 96523 ==

== ENCOUNTER 2021-01-24 09:30 | Outpatient (CLI) | payer MEDICARE, SELFPAY ==
--- NOTE | 2021-01-24 09:32 | CT_ITS ---
WS: [id number] CT HEAD WITH AND WITHOUT CONTRAST HISTORY: LUNG CANCER, EVALUATION OF NEW SYMPTOMS TECHNIQUE: Noncontrast 2.5 mm axial images obtained from the vertex to the skull base. Additional sherif ging performed at 2.5 mm axial images status post IV contrast. Bone and soft tissue windows are revie wed. All CT scans at [facility] use at least one of these dose optimization techniques: autom ated exposure control; mA and/or kV adjustment per patient size (includes targeted exams where dose i s matched to clinical indication); or iterative reconstruction. CONTRAST: Omnipaque 300; 95 mL IV. DLP: 2330.73 mGycm COMPARISON: 08/16/2019 No acute intracranial hemorrhage, edema or midline shift. Mild volume loss and mild chronic microvasc ular ischemic disease. Prior lacunar infarct in the LEFT basal ganglia. No enhancing mass or vascular malformations identified. Dural venous sinuses are normally enhancing. Visualized red cliff of [place] is unremarkable. Paranasal sinuses as visualized: Clear. Mastoid air cells: Clear. Calvarium and scalp: Intact. 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 CT/CT head wo/w con [id number] IMPRESSION: 1. No acute intracranial hemorrhage or edema. 2. No enhancing masses. 3. Stable head CT since 08/16/2019.
[2021-01-24 09:55] LABS: Blood Urea Nitrogen 17 mg/dL (8-23)
[2021-01-24] MEDS: iohexol 300 mg/mL 100 mL Btl IV (10:10)
== END 2021-01-24 09:31 | disposition home or self-care (01) ==
LOC: RADWPI 09:31
PROVIDERS: PCP Family Medicine; Visit Provider Internal Medicine Hematology & Oncology
DX: C34.12 Malignant neoplasm of upper lobe, left bronchus or lung (principal)
CPT/HCPCS: 70470; 82565; 84520; Q9967

== ENCOUNTER 2021-02-08 10:03 | Outpatient (CLI) | payer MEDICARE, SELFPAY | END 2021-02-08 10:04 | disposition home or self-care (01) | PROVIDERS: PCP Family Medicine; Visit Provider Internal Medicine Hematology & Oncology | DX: Z45.2 Encounter for adjustment and management of vascular access device (principal) | CPT/HCPCS: 96523 ==

== ENCOUNTER 2021-03-08 08:08 | Outpatient (CLI) | payer MEDICARE, SELFPAY | END 2021-03-08 08:09 | disposition home or self-care (01) | LOC: ONCMED 08:09 | PROVIDERS: PCP Family Medicine; Visit Provider Internal Medicine Hematology & Oncology | DX: Z45.2 Encounter for adjustment and management of vascular access device (principal) | CPT/HCPCS: 96523 ==

== ENCOUNTER 2021-04-05 09:53 | Outpatient (CLI) | payer MEDICARE, SELFPAY ==
[2021-04-05 10:31] LABS: Basophils % 0.6 %; Eosinophils # 0.2 10^3/uL (0.0-0.8); Eosinophils % 4.7 %; Hematocrit 35.9 % (37.0-47.0); Hemoglobin 11.9 g/dL (11.5-15.3); Lymphocytes # 0.6 10^3/uL (0.8-4.8); Lymphocytes % 11.3 %; Mean Corpuscular HGB Conc 33.1 g/dL (30.0-36.0); Mean Corpuscular Hemoglobin 30.7 pg (28.0-34.0); Mean Corpuscular Volume 92.8 fl (81-99); Mean Platelet Volume 9.5 fL (7.4-10.4); Monocytes # 0.4 10^3/uL (0.2-0.9); Monocytes % 7.6 %; Neutrophils # 3.67 10^3/uL (1.8-7.7); Neutrophils % 75.4 %; Nucleated Red Blood Cells % 0 %; Platelet Count 197 10^3/cmm (130-400); Red Blood Count 3.87 10^6/uL (4.1-5.3); Red Cell Distribution Width 13.2 % (12.1-15.1); White Blood Count 4.9 10^3/uL (4.0-10.0)
[2021-04-05 10:59] LABS: Alanine Aminotransferase 23 U/L (0-33); Albumin Level 3.4 g/dL (3.5-5.2); Alkaline Phosphatase 218 IU/L (35-105); Aspartate Amino Transferase 27 U/L (0-32); Blood Urea Nitrogen 16 mg/dL (8-23); Calcium 8.4 mg/dL (8.5-10.5); Carbon Dioxide 24 mmol/L (22-29); Chloride 103 mmol/L (98-107); Globulin 3.4 g/dL (1.3-4.6); Glucose 105 mg/dL (65-115); Osmolality Calculated 288 mOsm/kg (285-295); Sodium 138 mmol/L (136-145); Total Bilirubin 0.3 mg/dL (0.15-1.2); Total Protein 6.8 g/dL (6.6-8.7)
[2021-04-05 11:06] LABS: Anion Gap 15.2 (5-19); Potassium 4.2 mmol/L (3.5-5.1)
--- NOTE | 2021-04-05 13:18 | ONC FU_ITS ---
Dr. Crump follow up note Patient: Ora De Leon Unit #: [id number]: 1940 Dicatated By: Riya Crump M.D.Date of Visit:Apr 05, 2021 Onc Med Follow-up/Prog Note History of Present Illness: Mrs De Leon is a 80 -year-old female with a history of abnormal chest x-ray with a left upper lobe lung mass. The mass was confirmed with CT scan of chest. Subsequently on 07/05/2019, she underwent bronchoscopy and endobronchial ultrasound-guided transbronchial needle aspiration of lymph nodes. 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 Lymph node aspiration showed benign lymph nodes and cytology from bronchoalveolar lavage and Cytobrush were negative too. She underwent CT PET scan on 06/28/2019 in [place] which showed large metabolic active mass within left upper lobe, mild adjacent nodularity in the left lung may reflect some satellite lesion or inflammation; Mildly enlarged mediastinal lymph nodes with some increase in metabolic activity could represent early metastatic disease; Wedge compression of T12 vertebral body of indeterminate age. Due to poor pulmonary reserve, patient is on home oxygen. She was considered not to be a candidate for surgical resection. Mrs De Leon was offered treatment with combined treatment with radiation therapy and chemotherapy. She began her first week of treatment weekly carboplatin/Taxol concurrent with radiation therapy on 07/26/2019. concluded combined chemoradiation weekly chemotherapy on 09/06/2019 and last dose on 09/13/2019 was not given because of severe neutropenia and patient completed radiation therapy on 09/13/2019 .Follow-up CT scan of chest done on February 28, 2020 showed spiculated left upper lobe perihilar mass continues to shrink now 1.7 x 2.1 cm compared to 2.6 x 2.9 on previous scan done on November 25, 2019 Barium swallow done on March 20, 2020 showed prominent cricopharyngeal bar with indentation on the hypopharynx without significant narrowing no jermain aspiration Follow-up CT scan of chest done on July 23, 2020 showed no significant change in the size of left upper lobe neoplasm no 1.5 x 2.2 cm. Increase in the amount of stranding and interstitial thickening surrounding the left upper lobe neoplasm this may be post radiation-induced lung changes or lymphangitic spread of tumor is not completely excluded. No mediastinal lymphadenopathy but severe emphysema and stable T12 severe compression fracture. Follow-up CT scan of chest done on October 24, 2020 showed spiculated left upper lobe neoplasm measures slightly smaller today compared to previous done in July 2020, it measures 1 x 1.8 x 0.8 cm compared to 1.4 x 2.1 x 0.9 cm previously no other significant interval changes. Persistent interstitial thickening around the left suprahilar mass no evidence of disease progression no mediastinal or hilar lymphadenopathy Came for follow-up, complaining of worsening of memory loss, no weight loss because of fear of aspiration, as per patient ENT physician told her she is at high risk for aspiration because of vocal cord paralysis patient is on home oxygen, as per daughter there is significant worsening of overall performance status, at this point ,patient and daughter is requesting hospice care for better palliation and comfort Medications: Advil PM 1 Tablet (of 200-38 mg) Oral at bedtime, Ibuprofen 1 (200 mg) Tablet Oral PRN Allergies: Codeine Sulfate Review of Systems: Review of Systems is not available for this patient. Vital Signs: Performed on Apr 05, 2021 12:01 Height - 65.00 in Weight - 121.6 lbs (LOW) BSA - 1.60 sq.m BMI - 20.24 Temperature - 97.6 F (LOW) Pulse - 65 /min Respiration - 22 /min BP - 99/53 mm(hg) O2 Sat - 98 % Pain - 0 Fatigue - 10 Performance Status: 3 - Capable of only limited self-care, confined to bed or chair more than 50% of waking hours. (ECOG) Physical Examination: ENMT - No mouth sores, no thrush no jaundice, Respiratory - Poor air entry, mild wheezing, Cardiovascular - Regular rate and rhythm of heart, Abdomen - Soft, bowel sounds present, Extremities - No visible edema. Lab/Imaging: Most recent lab results are not available for this patient. 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 Wedge compression of T12 vertebral body of indeterminate age. Clinical stage COPD, on home oxygen Dementia Essential hypertension discussed with Ms De Leon and her family her disease status and treatment options. Considering Ms De Leon's poor pulmonary reserve, she is not a candidate for surgical resection. The role of combined chemoradiation was discussed in detail, and she was offered weekly carboplatin Taxol concurrent radiation therapy,Which she started on July 26, 2019, and last dose of chemo was not given on September 13, 2019 because of severe and persistent neutropenia and patient concluded her radiation therapy on September 13, 2019 discussed about 2 cycles of full dose carboplatin/Taxol followed by maintenance therapy with durvalumab for 12 months.Patient and her daughter decided not to consider consolidation with carboplatin/Taxol and maintenance immunotherapy knowing the risk versus benefits Follow-up CT scan of chest done on July 23, 2020 showed no significant change in the size of left upper lobe neoplasm measuring 1.5 x 2.2 cm. Increasing amount of stranding and interstitial thickening surrounding left upper lobe mass could be postradiation induced changes but lymphangitic spread is not completely excluded. No mediastinal lymphadenopathy. Severe emphysema and stable T12 severe compression fracture. Follow-up CT scan of the chest done on October 24, 2020 showed spiculated left upper lobe neoplasm measuring slightly smaller when compared to previous scan done in July 2020, now measuring 1 x 1.8 x 0.8 cm compared to 1.4 x 2.1 x 0.9 cm previously. No other significant interval changes. Persistent interstitial thickening. No evidence of progressive disease. No mediastinal or hilar lymphadenopathy Hoarseness of voice etiology unclear, being evaluated by ENT Plan: Discussed with patient and daughter regarding her labs white blood count 4.9 hemoglobin 11.9 hematocrit 35.9 platelets 197,000 CMP within normal limits Clinically, patient doing reasonably well but now appears anxious due to progressive memory loss and also concerned about aspirations as mentioned by ENT because of bilateral vocal cord paralysis. Patient's overall performance status continues to decline has lost significant weight, now patient and daughter are requesting hospice consultation and if like may consider hospice care. We will consult hospice, if patient or family declined, will see her back in 1 month and discuss about considering tracheostomy as recommended by ENT. Signed By: Riya Crump M.D. <<Signature on File>>
== END 2021-04-05 09:54 | disposition home or self-care (01) ==
PROVIDERS: PCP Family Medicine; Visit Provider Internal Medicine Hematology & Oncology
DX: C34.12 Malignant neoplasm of upper lobe, left bronchus or lung (principal); J44.9 Chronic obstructive pulmonary disease, unspecified; Z99.81 Dependence on supplemental oxygen; F03.90 Unspecified dementia, unspecified severity, without behavioral disturbance, psychotic disturbance, mood disturbance, and anxiety; I10 Essential (primary) hypertension; Z79.899 Other long term (current) drug therapy; Z92.21 Personal history of antineoplastic chemotherapy; Z92.3 Personal history of irradiation
CPT/HCPCS: 36415; 80053; 85025; 96523; 99214